=== PATIENT | male | born 1950 | race Caucasian/White ===

== ENCOUNTER 2019-06-10 08:53 | Outpatient (CLI) | payer MEDICARE, SELFPAY ==
--- NOTE | ~2019-06-10 | MR_ITS ---
EXAMINATION: MR lumbar spine wo con EXAM DATE: 06/10/2019 10:15 INDICATION: Low back pain. TECHNIQUE: Multi-sequential, multiplanar MR images of the lumbar spine were obtained without contrast . Sagittal T1, T2, T2 fat saturation images. Axial T2 weighted images. Comparison is made to prior examination from 10/26/2015. FINDINGS: There is chronic L5 spondylolysis with 8 mm anterolisthesis L5 on S1. There is 3 mm retroli sthesis L1 on L2 and L2 on L3, 2 mm retrolisthesis L4 on L5. Moderate to severe L5-S1 disc disease, m oderate at L2-3 and L3-4, mild to moderate at L1-2 and L4-5. The conus medullaris terminates at the T 12-L1 level and has normal signal intensity and morphology. Small hemangioma within T11. Endplate de generative signal change mostly L5-S1. Paraspinal soft tissue is unremarkable. Level by level evaluation: T12-L1: There is a mild diffuse disc bulge. Facet arthropathy: Minimal. Neural foraminal stenosis: No stenosis. Central canal stenosis: No stenosis. L1-L2: There is a mild diffuse disc bulge. Facet arthropathy: Mild. Neural foraminal stenosis: No stenosis. Central canal stenosis: No stenosis. L2-L3: There is a mild to moderate diffuse disc bulge. Facet arthropathy: Mild to moderate. Neural foraminal stenosis: Mild to moderate left, mild right. Central canal stenosis: Mild to moderate. L3-L4: There is a moderate diffuse disc bulge. Facet arthropathy: Moderate . Ligamentum flavum enlargement. Neural foraminal stenosis: Moderate to severe left, mild to moderate right. Central canal stenosis: Moderate, nerve root crowding with minimal CSF space.. L4-L5: There is a mild to moderate diffuse disc bulge. Facet arthropathy: Mild to moderate. Neural foraminal stenosis: Moderate right, mild to moderate left. Central canal stenosis: Mild to moderate. L5-S1: There is a moderate diffuse disc bulge. Facet arthropathy: Mild to moderate. Neural foraminal stenosis: Moderate to severe bilateral, right greater than left. Central canal stenosis: Mild. Compared to prior study minimal progression in the L5-S1 anterolisthesis. Progression in the bilatera l neural foraminal stenosis and disc disease compared to prior study. Progression in the L3-4 Central canal nerve root crowding. IMPRESSION: 1. Chronic L5 spondylolysis with grade 2 anterolisthesis L5 on S1, moderate to severe neural foramin al stenosis. 2. Moderate L3-4 Central canal stenosis. 3. Lesser spondylosis above with some interval progression. Reviewed, dictated and finalized at location B. H [employer] IMPRESSION: 1. Chronic L5 spondylolysis with grade 2 anterolisthesis L5 on S1, moderate to severe neural foraminal stenosis. 2. Moderate L3-4 Central canal stenosis. 3. Lesser spondylosis above with some interval progression.
== END 2019-06-10 08:54 | disposition home or self-care (01) ==
PROVIDERS: PCP Internal Medicine; Visit Provider Internal Medicine
DX: M54.5 Low back pain (principal)
CPT/HCPCS: 72148

== ENCOUNTER 2019-07-18 08:53 | Outpatient (RCR) | payer MEDICARE, SELFPAY ==
--- NOTE | 2019-07-18 10:33 | PTOPEVAL ---
Thank you for referring this patient to [facility]. Please review, sign, date and return this plan of care [facility]. I agree with and certify that the following plan of care is medically necessary. Referring Physician Date Admitting Provider: Attending Provider: Renny Quach MD Referring Provider: *PT Outpatient Evaluation Start: 07/18/19 09:03 Freq: Status: Active Protocol: Document 07/18/19 09:05 [facility] (Rec: 07/18/19 09:54 [facility] [id number]) Therapy Assessment Status Assessment Status Assessment Status Evaluation Outpatient Past Medical History Past Medical History Reason Unable to Obtain see patient intake from Evaluation Information Problem Diagnosis R knee oa Onset Additional Evaluation Detail lefs = 62% Subjective Information patient reports he has been Query Text:As Reported By Patient/ having pain in the R knee Family since fall of last year. he reports he has been to a specialist who reports he has arthritis in the R knee and weakness of the R hip. he reports his walking has gotten worse lately. he reports he is not using a cane yet. he reports he was instructed that it may help, but patient is trying to hold off for now. he reports he has limited walking due to the R knee pain , he reports difficulty with walking on concrete most and also in the [place] on unstable ground. Prior Level of Function Comments Additional Prior Level of Function patient reports he likes to Comments hahn in the [place] and is getting ready for turkey hunting season. Pain Assessment Timing of Pain Assessment Timing of Pain Assessment Assessment Pain Scale Pain Scale Used Numeric (1 - 10) Self Report Pain Assessment Right Knee(s) Reported Pain Level 0 Current Pain Intensity 0 Lowest Pain Intensity 0 Greatest Pain Intensity 8 Pain Aggravating Factors Stair Climbing,Walking,Weight Bearing/Standing Pain Score Pain Score 0: Self Report Lower Extremity Range of Motion Knee Range of Motion Right Knee Flexion Range of Motion - Active 133 Knee Extension Range of Motion - Active -5 Query Text: Michelle
== END 2019-08-10 13:12 | disposition home or self-care (01) ==
LOC: CHSPT 08:53
PROVIDERS: PCP Internal Medicine; Visit Provider Orthopaedic Surgery
DX: M17.11 Unilateral primary osteoarthritis, right knee (principal); M62.81 Muscle weakness (generalized)
CPT/HCPCS: 97014; 97110; 97161; 97530; G0283

== ENCOUNTER 2019-10-09 07:02 | Outpatient (CLI) | payer MEDICARE, SELFPAY ==
--- NOTE | ~2019-10-09 | XR_ITS ---
XR abdomen/kub 1V 10/09/2019 07:33 Indication: Renal stones. History of prostate cancer. Procedure: KUB Comparison: Comparison to multiple prior studies sequentially, with oldest reviewed study dated 10/22. Findings: Bowel gas pattern is nonobstructive. Status post cholecystectomy. Moderate lumbar spondylos is with dextroscoliosis. There is a right total hip arthroplasty. No definite urolithiasis. There is a 1 from penile prosthetic device in the right pelvis. Impression: 1: No acute abdominal abnormality. Reviewed, dictated and finalized at location A. Impression: 1: No acute abdominal abnormality.
[2019-10-09 08:34] LABS: Hemoglobin A1C 6.6 % (<5.7)
[2019-10-09 08:39] LABS: Anion Gap 12.1 mmol/L (7-16); Blood Urea Nitrogen 19 mg/dL (7-18); Calcium 8.7 mg/dL (8.5-10.1); Carbon Dioxide 29 mmol/L (21-32); Chloride 105 mmol/L (98-108); Estimated Glomerular Filt Rate > 60; Glucose 103 mg/dL (70-99); Osmolality Calculated 296 mOsm/kg (285-295); Potassium 4.1 mmol/L (3.5-5.1); Sodium 142 mmol/L (136-145)
== END 2019-10-09 07:03 | disposition home or self-care (01) ==
PROVIDERS: PCP Internal Medicine
DX: N20.0 Calculus of kidney (principal); E11.9 Type 2 diabetes mellitus without complications
CPT/HCPCS: 36415; 74018; 80048; 83036

== ENCOUNTER 2020-01-17 07:11 | Outpatient (CLI) | payer MEDICARE, SELFPAY ==
[2020-01-17 07:45] LABS: Basophils Absolute Auto 0.02 K/mm3 (0.00-0.10); Basophils Percent Auto 0.4 % (0.0-1.0); Eosinophils Absolute Auto 0.07 K/mm3 (0.02-0.50); Eosinophils Percent Auto 1.2 % (1.0-6.0); Hematocrit 42.8 % (37.0-46.0); Hemoglobin 13.7 g/dL (12.4-15.3); Immature Granulocyte Absolute 0.03 K/mm3 (0.00-0.00); Immature Granulocyte Percent A 0.5 % (0.0-0.0); Lymphocytes Absolute Auto 0.88 K/mm3 (1.10-4.50); Lymphocytes Percent Auto 15.5 % (18.0-42.0); Mean Corpuscular Hemoglobin 32.1 pg (27.0-31.0); Mean Corpuscular Volume 100.2 fL (78.0-102.0); Mean Platelet Volume 9.6 fl (8.7-11.0); Monocytes Absolute Auto 0.63 K/mm3 (0.10-0.90); Monocytes Percent Auto 11.1 % (2.0-11.0); Neutrophils Absolute Auto 4.1 K/mm3 (1.7-7.2); Neutrophils Percent Auto 71.3 % (50.0-70.0); Platelet Count Result 259 K/mm3 (150-420); Red Blood Count 4.27 M/mm3 (4.70-6.10); Red Cell Distribution Width 14.5 % (11.6-14.4); White Blood Count 5.7 K/mm3 (4.8-10.8)
[2020-01-17 07:51] LABS: Add Urine Microscopic? YES; Appearance Urine Clear (Clear); Bilirubin Urine Negative (Negative); Blood Urine 1+ (Negative); Color Urine Yellow (Yellow); Glucose Urine UA Negative (Negative); Ketones Urine Negative (Negative); Leukocyte Esterase Ur Negative (Negative); Nitrate Urine Negative (Negative); Protein Urine Negative (Negative); Specific Grav Ur >= 1.030 (1.010-1.020); Urobilinogen Urine 0.2 mg/dL (0.2-1.0)
[2020-01-17 07:56] LABS: Bacteria Urine Trace /hpf; Mucus Urine Few /lpf; RBC Urine 0-2 /hpf (0-2); WBC Urine 0-3 /hpf (0-3)
[2020-01-17 08:05] LABS: MALB Creatinine Ratio 5.7 mg/g (0-30); Microalbumin Urine Random 14.9 mg/L
[2020-01-17 08:27] LABS: Hemoglobin A1C 6.3 % (<5.7)
[2020-01-17 08:44] LABS: Alanine Aminotransferase 24 U/L (16-63); Albumin Level 3.4 g/dL (3.4-5.0); Alkaline Phosphatase 64 U/L (46-116); Anion Gap 10 mmol/L (8-16); Aspartate Amino Transferase 12 U/L (15-37); Bilirubin,Total 0.2 mg/dL (0.00-1.00); Blood Urea Nitrogen 17 mg/dL (7-18); Calcium 8.9 mg/dL (8.5-10.1); Carbon Dioxide 27 mmol/L (21-32); Chloride 106 mmol/L (98-108); Cholesterol 156 mg/dL (0-200); Creatine Kinase 67 U/L (39-308); Estimated Glomerular Filt Rate > 60; Ferritin 42 ng/mL (26-388); Glucose 121 mg/dL (70-99); HDL Direct 41 mg/dL (40-60); Iron 56 ug/dL (65-175); LDL Cholesterol Calculated 85 mg/dL (<130); Osmolality Calculated 298 mOsm/kg (285-295); Percent Iron Saturation 20 % (12-57); Potassium 4.5 mmol/L (3.5-5.1); Sodium 143 mmol/L (136-145); Total Protein 6.5 g/dL (6.4-8.2); Triglycerides 151 mg/dL (0-150)
== END 2020-01-17 07:12 | disposition home or self-care (01) ==
LOC: CHSLAB 07:12
PROVIDERS: PCP Internal Medicine; Visit Provider Internal Medicine
DX: E78.2 Mixed hyperlipidemia (principal); I10 Essential (primary) hypertension; E11.9 Type 2 diabetes mellitus without complications; E61.1 Iron deficiency
CPT/HCPCS: 36415; 80053; 80061; 81001; 82043; 82550; 82728; 83036; 83540; 83550; 85025

== ENCOUNTER 2020-07-15 09:34 | Outpatient (CLI) | payer MEDICARE, SELFPAY ==
--- NOTE | ~2020-07-15 | XR_ITS ---
EXAMINATION: XR abdomen/kub 1V EXAM DATE: 07/15/2020 10:01 INDICATION: hx r side ureteral stone, no current abd pain. TECHNIQUE: Frontal projection of the upper abdomen, frontal projection lower abdomen/pelvis for inter pretation. Comparison is made to prior examination from 10/09/2019. FINDINGS: There is expected amount of colonic stool and gas. No small bowel dilation, nonobstructiv e bowel gas pattern. There are no suspicious calcifications identified. There is no organomegaly suspected. Pelvic surgical clips, probable prostatectomy and lymph node dissection, correlate with history. Impl ant, reservoir. There are cholecystectomy clips. Right hip replacement. There is mild lumbar dextrosc oliosis, overall moderate spondylosis. There are no osteoblastic or osteolytic lesions identified. IMPRESSION: Surgical changes. No suspicious calcifications. Reviewed, dictated and finalized at location A.
== END 2020-07-15 09:35 | disposition home or self-care (01) ==
LOC: CHSIMG 09:36
PROVIDERS: PCP Internal Medicine; Visit Provider Urology
DX: N20.1 Calculus of ureter (principal)
CPT/HCPCS: 74018

== ENCOUNTER 2020-08-12 07:04 | Outpatient (CLI) | payer MEDICARE, SELFPAY ==
[2020-08-12 07:30] LABS: Basophils Absolute Auto 0.02 K/mm3 (0.00-0.10); Basophils Percent Auto 0.4 % (0.0-1.0); Eosinophils Absolute Auto 0.06 K/mm3 (0.02-0.50); Eosinophils Percent Auto 1.1 % (1.0-6.0); Hematocrit 45.4 % (37.0-46.0); Immature Granulocyte Absolute 0.01 K/mm3 (0.00-0.00); Immature Granulocyte Percent A 0.2 % (0.0-0.0); Lymphocytes Absolute Auto 0.87 K/mm3 (1.10-4.50); Lymphocytes Percent Auto 15.6 % (18.0-42.0); Mean Corpuscular Hemoglobin 31.8 pg (27.0-31.0); Mean Corpuscular Volume 96.4 fL (78.0-102.0); Mean Platelet Volume 9.2 fl (8.7-11.0); Neutrophils Absolute Auto 4.1 K/mm3 (1.7-7.2); Neutrophils Percent Auto 73.7 % (50.0-70.0); Platelet Count Result 250 K/mm3 (150-420); Red Blood Count 4.71 M/mm3 (4.70-6.10); Red Cell Distribution Width 13.6 % (11.6-14.4); White Blood Count 5.6 K/mm3 (4.8-10.8)
[2020-08-12 07:33] LABS: Add Urine Microscopic? YES; Appearance Urine Clear (Clear); Bilirubin Urine Negative (Negative); Blood Urine 1+ (Negative); Color Urine Yellow (Yellow); Glucose Urine UA Negative (Negative); Ketones Urine Negative (Negative); Leukocyte Esterase Ur Negative (Negative); Nitrate Urine Negative (Negative); Protein Urine Negative (Negative); Specific Grav Ur >= 1.030 (1.010-1.020); Urobilinogen Urine 0.2 mg/dL (0.2-1.0)
[2020-08-12 07:40] LABS: Bacteria Urine Trace /hpf; RBC Urine 0-2 /hpf (0-2); WBC Urine None seen /hpf (0-3)
[2020-08-12 07:43] LABS: Hemoglobin A1C 6.7 % (<5.7)
[2020-08-12 08:35] LABS: Alanine Aminotransferase 29 U/L (16-63); Albumin Level 3.4 g/dL (3.4-5.0); Alkaline Phosphatase 67 U/L (46-116); Anion Gap 7 mmol/L (8-16); Aspartate Amino Transferase 13 U/L (15-37); Bilirubin,Total 0.3 mg/dL (0.00-1.00); Blood Urea Nitrogen 21 mg/dL (7-18); Calcium 8.8 mg/dL (8.5-10.1); Carbon Dioxide 27 mmol/L (21-32); Chloride 106 mmol/L (98-108); Cholesterol 161 mg/dL (0-200); Creatine Kinase 61 U/L (39-308); Estimated Glomerular Filt Rate > 60; Ferritin 51 ng/mL (26-388); Glucose 135 mg/dL (70-99); HDL Direct 39 mg/dL (40-60); Iron 97 ug/dL (65-175); LDL Cholesterol Calculated 76 mg/dL (<130); Osmolality Calculated 295 mOsm/kg (285-295); Percent Iron Saturation 32 % (12-57); Potassium 4.3 mmol/L (3.5-5.1); Sodium 140 mmol/L (136-145); Total Protein 6.5 g/dL (6.4-8.2); Triglycerides 228 mg/dL (0-150); Uric Acid 3.7 mg/dL (3.5-7.2)
== END 2020-08-12 07:05 | disposition home or self-care (01) ==
LOC: CHSLAB 07:06
PROVIDERS: PCP Internal Medicine; Visit Provider Internal Medicine
DX: E11.9 Type 2 diabetes mellitus without complications (principal); I10 Essential (primary) hypertension; E78.2 Mixed hyperlipidemia; E79.0 Hyperuricemia without signs of inflammatory arthritis and tophaceous disease; E61.1 Iron deficiency
CPT/HCPCS: 36415; 80053; 80061; 81001; 82550; 82728; 83036; 83540; 83550; 84550; 85025

== ENCOUNTER 2020-09-11 10:54 | Outpatient (CLI) | payer MEDICARE, SELFPAY ==
--- NOTE | ~2020-09-11 | MR_ITS ---
EXAMINATION: MR lumbar spine wo con DATE: 09/11/2020 12:09 INDICATION: Low back pain. TECHNIQUE: Magnetic resonance imaging (MRI) of the lumbar spine was performed without intravenous con trast. Sequences included sagittal T2-weighted FSE, sagittal T2-weighted FS FSE, sagittal T1-weighted FSE, and axial T2-weighted FSE. COMPARISON: Lumbar spine MRI 06/10/2019 FINDINGS: There are chronic bilateral L5 pars defects. There is 5 mm anterolisthesis of L5 on S1. The re is 3 mm retrolisthesis of L1 on L2 and L2 on L3. There is mild chronic anterior wedging of T11 and T12 vertebral bodies. There is mildly decreased disc height at L1-L2, severely decreased disc height at L2-L3 and L3-L4, moderately decreased disc height at L4-L5, and severely decreased disc height at L5-S1 with endplate remodeling. The distal spinal cord signal intensity is normal. The conus medulla ris is at L1. The following disc levels are specifically discussed: L1-L2: The disc is bulging. There is mild bilateral facet joint osteoarthritis. There is mild bilater al neural foraminal stenosis. There is mild central canal stenosis. L2-L3: The disc is bulging and has an annular fissure. There is severe bilateral facet joint osteoart hritis. There is mild bilateral neural foraminal stenosis. There is mild central canal stenosis. L3-L4: The disc is bulging with superimposed central extrusion. There is severe bilateral facet joint osteoarthritis. There is mild right and moderate left neural foraminal stenosis. There is severe allison tral canal stenosis. L4-L5: The disc is bulging and has an annular fissure. There is mild right and moderate left facet ubaldo int osteoarthritis. There is moderate right and mild left neural foraminal stenosis. There is mild ce ntral canal stenosis. L5-S1: The disc is bulging and has an annular fissure. There is severe bilateral facet joint osteoart hritis. There is moderate right and mild left neural foraminal stenosis. There is mild central canal stenosis. IMPRESSION: 1. Severe lumbar spondylosis, stable from 06/10/2019. 2. Chronic bilateral L5 pars defects with grade 1 anterolisthesis of L5 on S1. Reviewed, dictated and finalized at location B.
== END 2020-09-11 10:55 | disposition home or self-care (01) ==
LOC: CHSIMG 10:55
PROVIDERS: PCP Internal Medicine; Visit Provider Internal Medicine
DX: M54.5 Low back pain (principal)
CPT/HCPCS: 72148

== ENCOUNTER 2021-02-07 07:33 | Outpatient (CLI) | payer MEDICARE, SELFPAY ==
[2021-02-07 07:49] LABS: Basophils Absolute Auto 0.03 K/mm3 (0.00-0.10); Basophils Percent Auto 0.5 % (0.0-1.0); Eosinophils Absolute Auto 0.07 K/mm3 (0.02-0.50); Eosinophils Percent Auto 1.2 % (1.0-6.0); Hematocrit 48.4 % (37.0-46.0); Hemoglobin 15.8 g/dL (12.4-15.3); Immature Granulocyte Absolute 0.04 K/mm3 (0.00-0.00); Immature Granulocyte Percent A 0.7 % (0.0-0.0); Lymphocytes Absolute Auto 0.92 K/mm3 (1.10-4.50); Lymphocytes Percent Auto 15.2 % (18.0-42.0); Mean Corpuscular HGB Conc 32.6 g/dL (32.0-36.0); Mean Corpuscular Hemoglobin 32.4 pg (27.0-31.0); Mean Corpuscular Volume 99.2 fL (78.0-102.0); Mean Platelet Volume 9.1 fl (8.7-11.0); Monocytes Absolute Auto 0.65 K/mm3 (0.10-0.90); Monocytes Percent Auto 10.7 % (2.0-11.0); Neutrophils Absolute Auto 4.4 K/mm3 (1.7-7.2); Neutrophils Percent Auto 71.7 % (50.0-70.0); Platelet Count Result 251 K/mm3 (150-420); Red Blood Count 4.88 M/mm3 (4.70-6.10); Red Cell Distribution Width 13.6 % (11.6-14.4); White Blood Count 6.1 K/mm3 (4.8-10.8)
[2021-02-07 07:51] LABS: Add Urine Microscopic? YES; Appearance Urine Clear (Clear); Bilirubin Urine Negative (Negative); Blood Urine 1+ (Negative); Color Urine Yellow (Yellow); Glucose Urine UA Negative (Negative); Ketones Urine Negative (Negative); Leukocyte Esterase Ur Negative (Negative); Nitrate Urine Negative (Negative); Protein Urine Negative (Negative); Specific Grav Ur >= 1.030 (1.010-1.020); Urobilinogen Urine 0.2 mg/dL (0.2-1.0); pH Urine 5.5 (5.0-8.0)
[2021-02-07 08:01] LABS: RBC Urine 0-2 /hpf (0-2); WBC Urine None seen /hpf (0-3)
[2021-02-07 08:02] LABS: Bacteria Urine Trace /hpf; Mucus Urine Few /lpf
[2021-02-07 08:12] LABS: Creatinine Urine 246.61 mg/dL (40-278); MALB Creatinine Ratio 5.2 mg/g (0-30); Microalbumin Urine Random < 13.0 mg/L
[2021-02-07 08:14] LABS: Hemoglobin A1C 6.9 % (<5.7)
[2021-02-07 09:22] LABS: Alanine Aminotransferase 32 U/L (16-63); Albumin Level 3.6 g/dL (3.4-5.0); Alkaline Phosphatase 78 U/L (46-116); Anion Gap 9 mmol/L (8-16); Aspartate Amino Transferase 10 U/L (15-37); Bilirubin,Total 0.4 mg/dL (0.00-1.00); Blood Urea Nitrogen 17 mg/dL (7-18); Calcium 8.9 mg/dL (8.5-10.1); Carbon Dioxide 29 mmol/L (21-32); Chloride 103 mmol/L (98-108); Cholesterol 162 mg/dL (0-200); Creatine Kinase 56 U/L (39-308); Estimated Glomerular Filt Rate > 60; Ferritin 135 ng/mL (26-388); Glucose 130 mg/dL (70-99); HDL Direct 45 mg/dL (40-60); Iron 86 ug/dL (65-175); LDL Cholesterol Calculated 78 mg/dL (<130); Osmolality Calculated 295 mOsm/kg (285-295); Percent Iron Saturation 30 % (12-57); Potassium 4.6 mmol/L (3.5-5.1); Sodium 141 mmol/L (136-145); Total Protein 6.6 g/dL (6.4-8.2); Triglycerides 196 mg/dL (0-150)
== END 2021-02-07 07:34 | disposition home or self-care (01) ==
LOC: CHSLAB 07:35
PROVIDERS: PCP Internal Medicine; Visit Provider Internal Medicine
DX: E11.9 Type 2 diabetes mellitus without complications (principal); I10 Essential (primary) hypertension; E78.2 Mixed hyperlipidemia; E61.1 Iron deficiency
CPT/HCPCS: 36415; 80053; 80061; 81001; 82043; 82550; 82728; 83036; 83540; 83550; 85025

== ENCOUNTER 2021-02-21 12:17 | Outpatient (CLI) | payer MEDICARE, SELFPAY ==
--- NOTE | ~2021-02-21 | US_ITS ---
EXAMINATION: US soft tissue head and neck DATE: 02/21/2021 12:39 INDICATION: Right parotid tumor. TECHNIQUE: Multiple grayscale and Doppler ultrasound images of the right head and neck were obtained. COMPARISON: None FINDINGS: The right parotid gland is normal. No abnormal mass is visualized. IMPRESSION: 1. Normal right parotid gland. No abnormal mass visualized. Reviewed, dictated and finalized at location A.
== END 2021-02-21 12:18 | disposition home or self-care (01) ==
LOC: CHSIMG 12:19
PROVIDERS: PCP Internal Medicine; Visit Provider Internal Medicine
DX: D49.0 Neoplasm of unspecified behavior of digestive system (principal)
CPT/HCPCS: 76536

== ENCOUNTER 2021-04-29 16:52 | Outpatient (CLI) | payer MEDICARE, SELFPAY ==
--- NOTE | ~2021-04-29 | US_ITS ---
EXAMINATION: US venous doppler [facility] DATE: 04/29/2021 17:25 INDICATION: Left lower limb swelling TECHNIQUE: Barnhart scale images without and with compression and Doppler images of the left lower extrem ity veins were obtained. COMPARISON: None FINDINGS: The left common femoral vein, profunda femoral vein, femoral vein, popliteal vein, peroneal trunk, posterior tibial veins, and greater saphenous vein are patent. IMPRESSION: 1. Patent left lower extremity veins. No evidence of deep venous thrombosis. Reviewed, dictated and finalized at location F. R [employer] S[employer]ER
== END 2021-04-29 16:53 | disposition home or self-care (01) ==
LOC: ANHIMG 16:55
PROVIDERS: PCP Internal Medicine; Visit Provider Neurological Surgery
DX: R60.0 Localized edema (principal)
CPT/HCPCS: 93971

== ENCOUNTER 2021-05-30 13:06 | Outpatient (CLI) | payer MEDICARE, SELFPAY ==
[2021-05-30 13:41] LABS: Anion Gap 9 mmol/L (8-16); Blood Urea Nitrogen 15 mg/dL (7-18); Calcium 9.1 mg/dL (8.5-10.1); Carbon Dioxide 32 mmol/L (21-32); Chloride 99 mmol/L (98-108); Estimated Glomerular Filt Rate > 60; Glucose 88 mg/dL (70-99); Osmolality Calculated 289 mOsm/kg (285-295); Sodium 140 mmol/L (136-145)
[2021-05-30 13:55] LABS: Hemoglobin A1C 6.4 % (<5.7)
== END 2021-05-30 13:07 | disposition home or self-care (01) ==
LOC: CHSLAB 13:08
PROVIDERS: PCP Internal Medicine; Visit Provider Internal Medicine
DX: E11.9 Type 2 diabetes mellitus without complications (principal)
CPT/HCPCS: 36415; 80048; 83036

== ENCOUNTER 2021-06-17 09:43 | Outpatient (CLI) | payer MEDICARE, SELFPAY ==
--- NOTE | ~2021-06-17 | CT_ITS ---
EXAMINATION: CT facial bones wo con DATE: 06/17/2021 10:06 INDICATION: Bilateral soft tissue masses TECHNIQUE: Computed tomography (CT) of the facial bones and maxillofacial region was performed withou t intravenous contrast. Automated exposure control and iterative reconstruction technique were employ ed. Exam dose: 550.92 mGy-cm total exam DLP. COMPARISON: None. FINDINGS: There is considerable streak artifact from fillings in the teeth, limiting the examination. There is a mucous retention cyst or polyp in the anteromedial left maxillary sinus, measuring up to 8 .7 x 12 mm, with a similar but smaller mucous retention cyst or less likely polyp in similar location on the right, measuring 4.2 x 8.8 mm. The paranasal sinuses and mastoid air cells are normally developed and aerated. The mastoid air cells likewise appear normally developed and aerated. The nasal bones and anterior maxillary spine, frontozygomatic sutures, orbital rims and baez and zyg omatic arches and remainder of the facial bones are intact. No orbital mass lesion is detected. The parotid and submandibular glands appear unremarkable. No facial soft tissue mass is evident. IMPRESSION: Mucous retention cysts of the maxillary sinuses Reviewed, dictated and finalized at Location A. Reviewed, dictated and finalized at location B. BINDER
== END 2021-06-17 09:44 | disposition home or self-care (01) ==
LOC: CHSIMG 09:44
PROVIDERS: PCP Internal Medicine; Visit Provider Internal Medicine
DX: R22.0 Localized swelling, mass and lump, head (principal)
CPT/HCPCS: 70486

== ENCOUNTER 2021-07-08 09:12 | Outpatient (CLI) | payer MEDICARE, SELFPAY ==
--- NOTE | ~2021-07-08 | XR_ITS ---
EXAMINATION: XR lumbar spine 2-3V DATE: 07/08/2021 09:31 INDICATION: Lumbar spondylosis TECHNIQUE: Anteroposterior and lateral views of the lumbar spine, and cone-down lateral view of the l umbosacral junction were obtained. COMPARISON: MRI, 09/11/2020 FINDINGS: There are changes of interval anterior and posterior fusion at L5-S1. There are 5 mm of ant erolisthesis of L5 on S1. There are 2 mm of anterolisthesis of L3 on L4. There is severe loss of inte rvertebral disc space height throughout the lumbar spine. No fracture is identified. Changes of right total hip arthroplasty are noted. There are surgical clips in the pelvis. IMPRESSION: 1. Changes of interval anterior and posterior fusion at L5-S1 with persistent severe lumbar spondylos is. Reviewed, dictated and finalized at location B. [employer] IMPRESSION: 1. Changes of interval anterior and posterior fusion at L5-S1 with persistent s evere lumbar spondylosis.
== END 2021-07-08 09:13 | disposition home or self-care (01) ==
LOC: CHSIMG 09:14
PROVIDERS: PCP Internal Medicine; Visit Provider Neurological Surgery
DX: M47.816 Spondylosis without myelopathy or radiculopathy, lumbar region (principal)
CPT/HCPCS: 72100

== ENCOUNTER 2021-07-15 13:55 | Outpatient (RCR) | payer MEDICARE, SELFPAY ==
--- NOTE | 2021-07-15 14:59 | PTOPEVAL ---
Thank you for referring Alex Hong to [facility].? The patient is scheduled to be seen for therapy? __2__x/week for 6 visits. Please review, sign, date and return this plan of care [facility]. I agree with and certify that the following plan of care is medically necessary. Referring Physician Date Admitting Provider: Attending Provider: Eleazar Pugh, Referring Provider: *PT Outpatient Evaluation Start: 07/15/21 13:57 Freq: Status: Active Protocol: Document 07/15/21 14:04 [facility] (Rec: 07/15/21 14:57 [facility] [id number]) Therapy Assessment Status Assessment Status Assessment Status Evaluation Evaluation Information Problem Diagnosis s/p L5-S1 fusion Onset 04/16/21 Subjective Information Pt. reports he underwent back Query Text:As Reported By Patient/ surgery on 04/16/21. He Family reports he was doing well until recent weeks when he developed pain in the left buttock and cramping in the left calf. He reports that pain is worse with sitting and no pain with walking. He reports that he enjoys golf and would like to be able to return to golf. He reports that he would like to be to improve his mobility and strength and return to golf. Prior Level of Function Comments Additional Prior Level of Function Pt. reports that he was Comments golfing as of last summer. He reports no formal exercise currently, and was not walking any significant distance. Pain Assessment Timing of Pain Assessment Timing of Pain Assessment Pre-Treatment Pain Scale Pain Scale Used Numeric (1 - 10) Self Report Pain Assessment Left Buttock(s) Reported Pain Level 8 Pain Description Sharp Greatest Pain Intensity 8 Pain Score Pain Score 8: Self Report Interventions Used Interventions Used By Clinicians Exercise,Lying Supine,Standing Cervical and Lumbar ROM Lumbar ROM Lumbar Flexion Active Knee Query Text:Hands to: Lumbar Extension (0-40) 5 Query Text:Active in Degrees Lumbar Lateral Flexion Right (0-40) 25 Query Text:Active in Degrees Lumbar Lateral Flexion Left (0-40) 25 Query Text:Active in Degrees Cervical and Lumbar Muscle Testing Lumbar Strength Upper Abdominal Strength 4-Good- Lower Abdominal Strength
== END 2021-08-07 17:00 | disposition home or self-care (01) ==
LOC: CHSPT 13:55
PROVIDERS: PCP Internal Medicine; Visit Provider Neurological Surgery
DX: Z98.890 Other specified postprocedural states (principal)
CPT/HCPCS: 97014; 97110; 97140; 97161; 97530; G0283

== ENCOUNTER 2021-08-07 10:05 | Outpatient (CLI) | payer MEDICARE, SELFPAY ==
--- NOTE | ~2021-08-07 | XR_ITS ---
EXAMINATION: XR abdomen/kub 1V EXAM DATE: 08/07/2021 10:23 INDICATION: Kidney stone follow-up. No current symptoms. TECHNIQUE: Frontal projection(s) of the abdomen for interpretation. Comparison is made to prior exami nation from 07/15/2020. FINDINGS: No suspicious soft tissue calcifications identified. Expected amount of colonic stool and gas. Multiple surgical changes. Mild to moderate lumbar dextroscoliosis. There is no organomegaly. IMPRESSION: No suspicious calcifications. Reviewed, dictated and finalized at location A.
== END 2021-08-07 10:06 | disposition home or self-care (01) ==
LOC: CHSIMG 10:07
PROVIDERS: PCP Internal Medicine; Visit Provider Urology
DX: N20.0 Calculus of kidney (principal)
CPT/HCPCS: 74018

== ENCOUNTER 2021-11-02 10:07 | Outpatient (CLI) | payer MEDICARE, SELFPAY ==
--- NOTE | ~2021-11-02 | MR_ITS ---
EXAMINATION: MR lumbar spine wo con DATE: 11/02/2021 11:54 INDICATION: Low back pain TECHNIQUE: Magnetic resonance imaging (MRI) of the lumbar spine was performed without intravenous con trast. Sequences included sagittal T2-weighted FSE, sagittal T2-weighted FS FSE, sagittal T1-weighted FSE, and axial T2-weighted FSE. COMPARISON: CT dated 11/02/2021 FINDINGS: 12 degree lumbar scoliosis. Partial L2 laminectomies and L3-L5 laminectomies. 6 mm anterolisthesis L5 on S1 with postoperative change of discectomy with interbody bone graft cages, bilateral facetectomi es and posterior spinal fusion with bilateral vertical glo and pedicle screw fixation at L5-S1. Addit ional 3 mm retrolisthesis L1 on L2 and L2 on L3. Vertebral body heights are normal. Severe left-sided disc height loss with associated fibrovascular degenerative endplate changes at L3-L4. Moderate disc height loss at L2-L3 and L4-L5. Mild disc height loss at T11-T12 and L1-L2. The conus medullaris ter minates at L1. There is normal signal in the caudal spinal cord. 12 mm T1 hyperintense lesion at the upper pole of the right kidney corresponding to macroscopic fat on CT consistent with an angiomyolipo ma. Paravertebral soft tissues are unremarkable. The following disc levels are specifically discussed : T12-L1: The disc does not extend beyond the endplate margin. There is mild left and moderate right fa cet joint osteoarthritis. There is no neural foraminal stenosis. There is no central canal stenosis. L1-L2: Disc is bulging. There is mild right and moderate left facet joint osteoarthritis. There is mi ld bilateral neural foraminal stenosis. There is mild central canal stenosis. L2-L3: Disc is bulging. There is hypertrophy of the ligamentum flavum. There is moderate bilateral f acet joint osteoarthritis. There is moderate right and moderate left neural foraminal stenosis. There is moderate central canal stenosis. L3-L4: Disc is bulging with superimposed annular fissure and left paracentral disc extrusion extendin g 7 mm cephalad to the level of the endplate of L3. There is mild to moderate right and moderate left facet joint osteoarthritis. There is moderate to severe left and mild to moderate right neural neena inal stenosis. There is mild central canal stenosis with posterior decompression. L4-L5: Disc is bulging with superimposed annular fissure and small central disc extrusion with disc m aterial extending 5 mm caudal to the level of the superior endplate of L5. There is moderate bilatera l facet joint osteoarthritis although assessment is somewhat limited by metallic magnetic field artif act from the posterior spinal fusion instrumentation. There is moderate right and mild to moderate le ft neural foraminal stenosis. There is minimal central canal stenosis with posterior decompression. L5-S1: Anterior spinal fusion although there does appear to be a residual left to right paracentral d isc extrusion with disc material extending 6 mm cephalad to the level the caudal endplate of L5. Post operative change of prior lateral facetectomies with posterior spinal fusion. There is mild bilateral neural foraminal stenosis. On the right there is more prominent moderate narrowing of the extra fora tracy space between lateral osteophytes along the disc space, the cephalad margin of the right sacral ala and the right transverse processes of L5. There is no central canal stenosis with posterior deco mpression. IMPRESSION: 1. Severe lumbar spondylosis with postoperative change including partial L2 laminectomy, L3-L5 jona ctomies, bilateral L5-S1 facetectomy and combined instrumented anterior and posterior spinal fusion a t L5-S1. Reviewed, dictated and finalized at location A. IMPRESSION: 1. Severe lumbar spondylosi
--- NOTE | ~2021-11-02 | CT_ITS ---
EXAMINATION: CT lumbar spine wo/w con DATE: 11/02/2021 12:36 INDICATION: Low back pain TECHNIQUE: Computed tomography (CT) of the lumbar spine was performed without intravenous contrast. A utomated exposure control and iterative reconstruction technique were employed. The dose-length produ ct was 2401.67 mGy-cm. COMPARISON: Lumbar spine radiographs dated 07/08/2021, lumbar spine MRI dated 09/11/[address] abdomen and pelvis dated 04/02/2016 FINDINGS: 10 degrees lumbar dextroscoliosis measured between L1 and L5. Interval L3-L5 laminectomies and partia l L2 laminectomy. Discectomy and anterior spinal fusion with interbody bone graft cages at L5-S1. The re appears to be some incorporation of bone graft material with early fusion developing across the di sc space. There is also posterior spinal fusion at this level with bilateral vertical glo and pedicle screw fixation. Unchanged 5 mm anterolisthesis L5 on S1. Also unchanged is 3 mm retrolisthesis L1 on L2 and L2 on L3. Vertebral body heights are normal. No fractures. Severe left-sided disc height loss at L3-L4. Moderate disc height loss at L2-L3 and L4-L5. Mild disc height loss at T11-T12 and L1-L2. 1.3 cm macroscopic fat attenuation angiomyolipoma at the upper pole of the right kidney. No significa nt change in bilateral adrenal adenomas, the largest on the left which demonstrate characteristic low attenuation on earlier noncontrast CT dated 04/02/2016. There are some postoperative scarring along t he midline of the posterior paraspinal soft tissues. The following disc levels are specifically discu ssed: T11-T12: Disc is mildly bulging. There is moderate bilateral facet joint osteoarthritis. There is mil d bilateral neural foraminal stenosis. There is mild central canal stenosis. T12-L1: The disc does not extend beyond the endplate margin. There is mild left and moderate right fa cet joint osteoarthritis. There is no neural foraminal stenosis. There is no central canal stenosis. L1-L2: Disc is mildly bulging. There is mild right and moderate left facet joint osteoarthritis. Ther e is bilateral, right greater than left. neural foraminal stenosis. There is mild central canal steno sis. L2-L3: Disc is bulging. There is moderate bilateral facet joint osteoarthritis. There is mild to mode rate bilateral neural foraminal stenosis. There is moderate central canal stenosis. L3-L4: Disc is bulging. There is mild right and moderate to severe left facet joint osteoarthritis. T here is mild to moderate right and moderate left neural foraminal stenosis. There is likely moderate central canal stenosis with posterior decompression. L4-L5: Disc is bulging. There is mild right and moderate left facet joint osteoarthritis. There is mo derate bilateral neural foraminal stenosis. There is posterior decompression of the central canal. As sessment for stenosis is however significantly limited by streak artifact from the vertical rods and pedicle screws. L5-S1: Disc space is fused. There is posterior spinal fusion with bilateral facetectomies. There is m ild bilateral neural foraminal stenosis. There is posterior decompression of the central canal, again with assessment for stenosis limited by the metallic streak artifact. IMPRESSION: 1. Interval L3-L5 laminectomies, partial L3 laminectomy, bilateral L5-S1 facetectomies and combined i nstrumented anterior and posterior spinal fusion at L5-S1. 2. Minimal progression in severe lumbar spondylosis. Reviewed, dictated and finalized at location A. IMPRESSION: 1. Interval L3-L5 laminectomies, partial L3 laminectomy, bilateral L5-S1 facete ctomies and combined instrumented anterior and posterior spinal fusion at L5-S1 . 2. Minimal progression in severe lumbar spondylosis.
[2021-11-02 12:13] LABS: Estimated Glomerular Filt Rate > 60
== END 2021-11-02 10:08 | disposition home or self-care (01) ==
PROVIDERS: PCP Internal Medicine; Visit Provider Neurological Surgery
DX: M48.061 Spinal stenosis, lumbar region without neurogenic claudication (principal); M47.816 Spondylosis without myelopathy or radiculopathy, lumbar region; Z98.890 Other specified postprocedural states; Z98.1 Arthrodesis status
CPT/HCPCS: 72133; 72148; Q9967

== ENCOUNTER 2022-01-30 08:08 | Outpatient (CLI) | payer MEDICARE, SELFPAY ==
[2022-01-30 08:19] LABS: Basophils Absolute Auto 0.01 K/mm3 (0.00-0.10); Basophils Percent Auto 0.2 % (0.0-1.0); Eosinophils Absolute Auto 0.05 K/mm3 (0.02-0.50); Eosinophils Percent Auto 0.9 % (1.0-6.0); Hematocrit 46.1 % (37.0-46.0); Hemoglobin 14.6 g/dL (12.4-15.3); Immature Granulocyte Absolute 0.03 K/mm3 (0.00-0.00); Immature Granulocyte Percent A 0.6 % (0.0-0.0); Lymphocytes Absolute Auto 0.86 K/mm3 (1.10-4.50); Lymphocytes Percent Auto 15.8 % (18.0-42.0); Mean Corpuscular HGB Conc 31.7 g/dL (32.0-36.0); Mean Corpuscular Hemoglobin 31.8 pg (27.0-31.0); Mean Corpuscular Volume 100.4 fL (78.0-102.0); Mean Platelet Volume 9.2 fl (8.7-11.0); Monocytes Absolute Auto 0.56 K/mm3 (0.10-0.90); Monocytes Percent Auto 10.3 % (2.0-11.0); Neutrophils Absolute Auto 3.9 K/mm3 (1.7-7.2); Neutrophils Percent Auto 72.2 % (50.0-70.0); Platelet Count Result 221 K/mm3 (150-420); Red Blood Count 4.59 M/mm3 (4.70-6.10); Red Cell Distribution Width 14.2 % (11.6-14.4); White Blood Count 5.4 K/mm3 (4.8-10.8)
[2022-01-30 08:28] LABS: Appearance Urine Clear (Clear); Bilirubin Urine Negative (Negative); Color Urine Yellow (Yellow); Creatinine Urine 228.11 mg/dL (40-278); Glucose Urine UA Negative (Negative); Ketones Urine Negative (Negative); Leukocyte Esterase Ur Negative (Negative); MALB Creatinine Ratio 6.3 mg/g (0-30); Microalbumin Urine Random 14.4 mg/L; Nitrate Urine Negative (Negative); Protein Urine Negative (Negative); Specific Grav Ur >= 1.030 (1.010-1.020); Urobilinogen Urine 0.2 mg/dL (0.2-1.0); pH Urine 5.5 (5.0-8.0)
[2022-01-30 08:34] LABS: Add Urine Microscopic? YES; Bacteria Urine Trace /hpf; Blood Urine Trace-Intact (Negative); Mucus Urine Few /lpf; RBC Urine 0-2 /hpf (0-2); Squamous Epithelial Cell Urine Few /hpf (Few); WBC Urine None seen /hpf (0-3)
[2022-01-30 09:11] LABS: Alanine Aminotransferase 29 U/L (16-63); Albumin Level 3.3 g/dL (3.4-5.0); Alkaline Phosphatase 74 U/L (46-116); Anion Gap 3 mmol/L (8-16); Aspartate Amino Transferase < 10 U/L (15-37); Bilirubin,Total 0.3 mg/dL (0.00-1.00); Blood Urea Nitrogen 17 mg/dL (7-18); Calcium 8.9 mg/dL (8.5-10.1); Carbon Dioxide 32 mmol/L (21-32); Chloride 107 mmol/L (98-108); Cholesterol 148 mg/dL (0-200); Creatine Kinase 42 U/L (39-308); Estimated Glomerular Filt Rate > 60; Ferritin 127 ng/mL (26-388); Glucose 143 mg/dL (70-99); HDL Direct 44 mg/dL (40-60); Iron 62 ug/dL (65-175); LDL Cholesterol Calculated 74 mg/dL (<130); Osmolality Calculated 297 mOsm/kg (285-295); Potassium 4.4 mmol/L (3.5-5.1); Sodium 142 mmol/L (136-145); Total Protein 6.8 g/dL (6.4-8.2); Triglycerides 149 mg/dL (0-150)
== END 2022-01-30 08:09 | disposition home or self-care (01) ==
LOC: CHSLAB 08:09
PROVIDERS: PCP Internal Medicine; Visit Provider Internal Medicine
DX: E78.2 Mixed hyperlipidemia (principal); E11.9 Type 2 diabetes mellitus without complications; I10 Essential (primary) hypertension; E61.1 Iron deficiency
CPT/HCPCS: 36415; 80053; 80061; 81001; 82043; 82550; 82728; 83036; 83540; 85025

== ENCOUNTER 2022-08-11 07:31 | Outpatient (CLI) | payer MEDICARE, SELFPAY ==
--- NOTE | ~2022-08-11 | XR_ITS ---
Supine and upright views of the abdomen Clinical history: Ureteral stone COMPARISON: 08/07/2021 Findings: Bowel gas pattern is nonspecific. No evidence for obstruction or free air. No abnormal mass lesion or calcification is seen. Lumbosacral spinal fixation hardware and right hip arthroplasty are unchanged. [place] unchanged. Pelvic surgical clips unchanged.. Impression: No renal/ureteral stone identified. Reviewed, dictated and finalized at location M. Impression: No renal/ureteral stone identified.
[2022-08-11 07:49] LABS: Appearance Urine Clear (Clear); Basophils Absolute Auto 0.02 K/mm3 (0.00-0.10); Basophils Percent Auto 0.4 % (0.0-1.0); Bilirubin Urine Negative (Negative); Blood Urine 1+ (Negative); Color Urine Yellow (Yellow); Eosinophils Absolute Auto 0.06 K/mm3 (0.02-0.50); Eosinophils Percent Auto 1.2 % (1.0-6.0); Glucose Urine UA Negative (Negative); Hematocrit 45.7 % (37.0-46.0); Hemoglobin 14.8 g/dL (12.4-15.3); Immature Granulocyte Absolute 0.02 K/mm3 (0.00-0.00); Immature Granulocyte Percent A 0.4 % (0.0-0.0); Ketones Urine Negative (Negative); Leukocyte Esterase Ur Negative (Negative); Lymphocytes Absolute Auto 0.91 K/mm3 (1.10-4.50); Lymphocytes Percent Auto 17.5 % (18.0-42.0); Mean Corpuscular HGB Conc 32.4 g/dL (32.0-36.0); Mean Corpuscular Hemoglobin 31.4 pg (27.0-31.0); Mean Corpuscular Volume 96.8 fL (78.0-102.0); Monocytes Absolute Auto 0.45 K/mm3 (0.10-0.90); Monocytes Percent Auto 8.7 % (2.0-11.0); Neutrophils Absolute Auto 3.7 K/mm3 (1.7-7.2); Neutrophils Percent Auto 71.8 % (50.0-70.0); Nitrate Urine Negative (Negative); Platelet Count Result 236 K/mm3 (150-420); Protein Urine Trace (Negative); Red Blood Count 4.72 M/mm3 (4.70-6.10); Red Cell Distribution Width 12.9 % (11.6-14.4); Specific Grav Ur >= 1.030 (1.010-1.020); Urobilinogen Urine 0.2 mg/dL (0.2-1.0); White Blood Count 5.2 K/mm3 (4.8-10.8)
[2022-08-11 08:00] LABS: Microalbumin Urine Random 30.5 mg/L
[2022-08-11 08:01] LABS: Hemoglobin A1C 6.7 % (<5.7)
[2022-08-11 08:11] LABS: Add Urine Microscopic? YES; RBC Urine 0-2 /hpf (0-2); Squamous Epithelial Cell Urine Occasional /hpf (Few); WBC Urine None seen /hpf (0-3)
[2022-08-11 08:12] LABS: Bacteria Urine Trace /hpf; Mucus Urine Few /lpf
[2022-08-11 08:17] LABS: MALB Creatinine Ratio 8.4 mg/g (0-30)
[2022-08-11 09:17] LABS: Alanine Aminotransferase 38 U/L (16-63); Albumin Level 3.3 g/dL (3.4-5.0); Alkaline Phosphatase 76 U/L (46-116); Anion Gap 8 mmol/L (8-16); Aspartate Amino Transferase 17 U/L (15-37); Bilirubin,Total 0.4 mg/dL (0.00-1.00); Blood Urea Nitrogen 17 mg/dL (7-18); Calcium 8.5 mg/dL (8.5-10.1); Carbon Dioxide 29 mmol/L (21-32); Chloride 104 mmol/L (98-108); Cholesterol 129 mg/dL (0-200); Creatine Kinase 107 U/L (39-308); Estimated Glomerular Filt Rate > 60; Ferritin 148 ng/mL (26-388); Glucose 123 mg/dL (70-99); HDL Direct 35 mg/dL (40-60); Iron 70 ug/dL (65-175); LDL Cholesterol Calculated 49 mg/dL (<130); Osmolality Calculated 294 mOsm/kg (285-295); Potassium 4.1 mmol/L (3.5-5.1); Prostate Specific Antigen < 0.1 ng/mL (< OR = 4.0); Sodium 141 mmol/L (136-145); Total Protein 6.5 g/dL (6.4-8.2); Triglycerides 225 mg/dL (0-150)
== END 2022-08-11 07:32 | disposition home or self-care (01) ==
LOC: CHSLAB 07:34
PROVIDERS: PCP Internal Medicine; Visit Provider Urology
DX: I10 Essential (primary) hypertension (principal); E78.2 Mixed hyperlipidemia; E11.9 Type 2 diabetes mellitus without complications; E61.1 Iron deficiency; C61 Malignant neoplasm of prostate
CPT/HCPCS: 36415; 74018; 80053; 80061; 81001; 82043; 82550; 82728; 83036; 83540; 84153; 85025

== ENCOUNTER 2022-11-29 22:47 | Emergency (ER) | payer MEDICARE, SELFPAY ==
--- NOTE | ~2022-11-29 | CT_ITS ---
Non-contrast CT scan of the Abdomen and Pelvis Clinical indication: Right flank pain Technique: 2.5 mm axial scans were obtained through the abdomen and pelvis without intravenous or or al contrast. Dose reduction technique was used on this scan by utilizing automated exposure control a nd iterative reconstruction technique. The dose-length product (DLP) was 1119.00 mGy-cm. COMPARISON: 04/02/2016 Findings: Images through the lung bases reveal no abnormalities. There is a 2 mm stone at the mid to distal right ureter (axial image 141), with mild right hydrourete ronephrosis. There are additional punctate bilateral nonobstructing renal stones. No left ureteral st one or left hydronephrosis. Small right renal angiomyolipoma noted. The liver, spleen, pancreas appear normal. Cholecystectomy clips are present. Bilateral low-density a drenal nodules are similar to prior exam, consistent with adenomas. There is no aortic aneurysm. There is no evidence of bowel obstruction. Normal appendix. Images through the pelvis are degraded by streak artifact from right hip arthroplasty. There is no ev idence of ascites or lymphadenopathy. Urinary bladder unremarkable. Patient appears to be post prosta tectomy. Impression: 2 mm mid to distal right ureteral stone, with mild right hydroureteronephrosis. Additional punctate bilateral nonobstructing renal stones. Stable bilateral adrenal adenomas. Reviewed, dictated and finalized at [facility]. Impression: 2 mm mid to distal right ureteral stone, with mild right hydroureteronephrosis. Additional punctate bilateral nonobstructing renal stones. Stable bilateral adrenal adenomas.
[2022-11-29 22:47] VITALS: BP 157/88; PULSE 90; RESP 20; TEMP 37; O2SAT 95
[2022-11-29 23:10] LABS: Appearance Urine Clear (Clear); Bilirubin Urine Negative (Negative); Blood Urine 3+ (Negative); Color Urine Light Yellow (Yellow); Glucose Urine UA Negative (Negative); Ketones Urine Negative (Negative); Leukocyte Esterase Ur Negative LEU/UL (Negative); Nitrate Urine Negative (Negative); Protein Urine Negative (Negative); Specific Grav Ur >= 1.030 (1.010-1.020); Urobilinogen Urine 0.2 mg/dL (0.2-1.0); pH Urine 5.5 (5.0-8.0)
--- NOTE | 2022-11-29 23:12 | ED.GENADULT ---
HPI - General Adult General Chief complaint: Abdominal Pain Stated complaint: R lower flank pain History of Present Illness HPI narrative: 72-year-old male presenting with right-sided flank /right-sided abdominal pain. Patient states his symptoms started approximately 35 minutes ago. He describes his symptoms as stabbing pain in his right flank that radiates into his right-sided abdomen. He does state he has a history of kidney stones. He denies any recent illnesses or trauma to the area. Onset (ago): minute(s) Location: abdomen Related Data Home Medications Medication Instructions Recorded Confirmed ferrous sulfate 325 mg (65 mg 325 mg PO DAILY 10/27/21 11/30/22 iron) tablet hydrochlorothiazide 12.5 mg capsule 12.5 mg PO DAILY 10/27/21 11/30/22 losartan 100 mg tablet 100 mg PO DAILY 10/27/21 11/30/22 nebivolol 5 mg tablet 5 mg PO DAILY 10/27/21 11/30/22 pantoprazole 40 mg tablet,delayed 40 mg PO QAM 10/27/21 11/30/22 release potassium citrate 99 mg capsule 99 mg PO DAILY 10/27/21 11/30/22 Allergies Allergy/AdvReac Type Severity Reaction Status Date / Time No Known Allergies Allergy Unknown Verified 11/17/21 09:44 [facility] Past Medical History Medical History Diabetes mellitus Hypertension Surgical History Surgical History H/O cystoscopy H/O prostatectomy 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 History of lumbar fusion Hx of arthroscopy of knee Hx of cholecystectomy Social History Social History Smoking status: Former smoker Tobacco type: cigarettes and cigars Substance use: never Living arrangements: with family Occupation/Education: retired Exam Const: General: healthy appearing Nutritional Appearance: well nourished HENMT: Head: normal to inspection and no contusions Ears: external ears normal and EAC's normal Face/Nose/Sinus: Normal external nose present and Normal nares present Face and sinus: normal facial exam and sinuses nontender Mouth: Yes Normal oral and palatal mucosa present and Yes lip normal Eyes: Conjunctivae: conjunctivae normal EOM: EOMs intact bilaterally Neck: Neck: normal visual inspection and no meningeal signs Chest: Chest palpation & inspection: normal inspection of the chest and normal inspection of the chest Resp: Effort & Inspection: normal respiratory effort and not labored Cardio: Rate: regular rate Rhythm: regular rhythm GI: Inspection: non-distended GI Palp: Yes Soft to palpation Other: Soft and nontender abdomen and flank. Negative Chen's. Negative McBurney's. Negative Avni's. : General: Yes bladder normal to palpation and No Bladder palpation abnormal Back/Spine/Pelvis: Back: no CVA tenderness and No CVA tenderness Cervical Spine: No collar present Skin: General skin exam: normal color Rashes: no rashes Neuro: General: patient oriented x3 Speech: normal speech Extrem: General: normal to inspection and no clubbing, cyanosis or edema Psych: Mental Status: mental status grossly normal Affect: normal affect Course Vital Signs Vital signs: Vital Signs Temperature 37.0 C 11/29/22 22:47 Pulse Rate 90 11/29/22 22:47 Respiratory Rate 20 11/29/22 22:47 Blood Pressure 157/88 H 11/29/22 22:47 Pulse Oximetry 95 11/29/22 22:47 Oxygen Delivery Room Air 11/29/22 22:47 Temperature 37.0 C 11/29/22 22:47 Pulse Rate 80 11/30/22 01:00 Respiratory Rate 20 11/30/22 01:00 Blood Pressure 143/88 H 11/30/22 01:00 Pulse Oximetry 96 11/30/22 01:00 Oxygen Delivery Room Air 11/30/22 01:00 Medical Decision Making [facility] Narrative Medical decision making narrative: Differential diagnosis includes but not limited to nephrolithiasis versus pyelonephritis versus pancreatitis jane
[2022-11-29 23:19] LABS: Add Urine Microscopic? YES; Amorphous Sediment Urine Few; RBC Urine 51-75 /hpf (0-2); Uric Acid Crystals Urine Present /hpf
[2022-11-29] MEDS: MORPHINE SULFATE (*CRX) 4 MG/ML INJ IV PUSH (23:23)
[2022-11-29 23:43] LABS: Basophils Absolute Auto 0.02 K/mm3 (0.00-0.10); Basophils Percent Auto 0.3 % (0.0-1.0); Eosinophils Absolute Auto 0.06 K/mm3 (0.02-0.50); Eosinophils Percent Auto 0.9 % (1.0-6.0); Hematocrit 45.2 % (37.0-46.0); Hemoglobin 14.2 g/dL (12.4-15.3); Immature Granulocyte Absolute 0.02 K/mm3 (0.00-0.00); Immature Granulocyte Percent A 0.3 % (0.0-0.0); Immature Platelet Fraction Pct 4.2 % (1.0-7.0); Lymphocytes Absolute Auto 1.17 K/mm3 (1.10-4.50); Lymphocytes Percent Auto 18.1 % (18.0-42.0); Mean Corpuscular HGB Conc 31.4 g/dL (32.0-36.0); Mean Corpuscular Hemoglobin 31.3 pg (27.0-31.0); Mean Corpuscular Volume 99.6 fL (78.0-102.0); Mean Platelet Volume 10.2 fl (8.7-11.0); Monocytes Absolute Auto 0.72 K/mm3 (0.10-0.90); Monocytes Percent Auto 11.1 % (2.0-11.0); Neutrophils Absolute Auto 4.5 K/mm3 (1.7-7.2); Neutrophils Percent Auto 69.3 % (50.0-70.0); Platelet Count Result 95 K/mm3 (150-420); Red Blood Count 4.54 M/mm3 (4.70-6.10); Red Cell Distribution Width 13.6 % (11.6-14.4); White Blood Count 6.5 K/mm3 (4.8-10.8)
[2022-11-29 23:57] LABS: Alanine Aminotransferase 34 U/L (16-63); Albumin Level 3.2 g/dL (3.4-5.0); Alkaline Phosphatase 82 U/L (46-116); Anion Gap 13 mmol/L (8-16); Aspartate Amino Transferase 17 U/L (15-37); Bilirubin,Total 0.2 mg/dL (0.00-1.00); Blood Urea Nitrogen 34 mg/dL (7-18); Carbon Dioxide 25 mmol/L (21-32); Chloride 104 mmol/L (98-108); Estimated Glomerular Filt Rate 42; Glucose 154 mg/dL (70-99); Lipase 57 U/L (16-77); Osmolality Calculated 304 mOsm/kg (285-295); Potassium 3.6 mmol/L (3.5-5.1); Sodium 142 mmol/L (136-145); Total Protein 6.4 g/dL (6.4-8.2)
[2022-11-30] VITALS: BP 140/89; PULSE 80; RESP 20; O2SAT 96
[2022-11-30] MEDS: fentaNYL CITRATE INJ (*CRX) 100 MCG/2 ML VIAL 50 MCG IV PUSH (00:05)
--- NOTE | 2022-11-30 00:14 | PC.NURSE ---
IV infiltrated during CT, MD verbal order to proceed with out contrast
[2022-11-30 01:00] VITALS: BP 143/88; PULSE 80; RESP 20; O2SAT 96
[2022-11-30 01:56] VITALS: BP 139/89; PULSE 88; RESP 18; TEMP 36.6; O2SAT 98
--- NOTE | 2022-11-30 02:24 | PC.NURSE ---
10MG OXYCODONE GIVEN 020
== END 2022-11-30 02:27 | disposition home or self-care (01) ==
PROVIDERS: Emergency Provider Emergency Medicine; PCP Internal Medicine
DX: N20.0 Calculus of kidney (principal); R10.31 Right lower quadrant pain; E11.9 Type 2 diabetes mellitus without complications; I10 Essential (primary) hypertension; Z87.891 Personal history of nicotine dependence
CPT/HCPCS: 36415; 74176; 80053; 81001; 83690; 85025; 85055; 96374; 96375; 99284; J2270; J3010

== ENCOUNTER 2023-02-08 07:44 | Outpatient (CLI) | payer MEDICARE, SELFPAY ==
[2023-02-08 08:01] LABS: Basophils Absolute Auto 0.03 K/mm3 (0.00-0.10); Basophils Percent Auto 0.5 % (0.0-1.0); Eosinophils Absolute Auto 0.05 K/mm3 (0.02-0.50); Eosinophils Percent Auto 0.8 % (1.0-6.0); Hematocrit 46.1 % (37.0-46.0); Hemoglobin 15.4 g/dL (12.4-15.3); Immature Granulocyte Absolute 0.02 K/mm3 (0.00-0.00); Immature Granulocyte Percent A 0.3 % (0.0-0.0); Lymphocytes Absolute Auto 1.19 K/mm3 (1.10-4.50); Lymphocytes Percent Auto 19.6 % (18.0-42.0); Mean Corpuscular HGB Conc 33.4 g/dL (32.0-36.0); Mean Corpuscular Hemoglobin 32.1 pg (27.0-31.0); Monocytes Absolute Auto 0.49 K/mm3 (0.10-0.90); Monocytes Percent Auto 8.1 % (2.0-11.0); Neutrophils Absolute Auto 4.3 K/mm3 (1.7-7.2); Neutrophils Percent Auto 70.7 % (50.0-70.0); Platelet Count Result 237 K/mm3 (150-420); Red Cell Distribution Width 12.7 % (11.6-14.4); White Blood Count 6.1 K/mm3 (4.8-10.8)
[2023-02-08 08:06] LABS: Appearance Urine Clear (Clear); Bilirubin Urine Negative (Negative); Blood Urine 1+ (Negative); Color Urine Yellow (Yellow); Glucose Urine UA Negative (Negative); Ketones Urine Negative (Negative); Leukocyte Esterase Ur Negative (Negative); Nitrate Urine Negative (Negative); Protein Urine 1+ (Negative); Specific Grav Ur >= 1.030 (1.010-1.020); Urobilinogen Urine 0.2 mg/dL (0.2-1.0)
[2023-02-08 08:11] LABS: Add Urine Microscopic? YES; Squamous Epithelial Cell Urine Occasional /hpf (Few); WBC Urine None seen /hpf (0-3)
[2023-02-08 08:12] LABS: Bacteria Urine Trace /hpf
[2023-02-08 08:14] LABS: Hemoglobin A1C 6.3 % (<5.7)
[2023-02-08 08:15] LABS: Mucus Urine Few /lpf
[2023-02-08 08:20] LABS: Microalbumin Urine Random 77.8 mg/L
[2023-02-08 08:31] LABS: MALB Creatinine Ratio 16.5 mg/g (0-30)
[2023-02-08 09:09] LABS: Alanine Aminotransferase 31 U/L (16-63); Albumin Level 3.2 g/dL (3.4-5.0); Alkaline Phosphatase 77 U/L (46-116); Anion Gap 8 mmol/L (8-16); Aspartate Amino Transferase 13 U/L (15-37); Bilirubin,Total 0.3 mg/dL (0.00-1.00); Blood Urea Nitrogen 14 mg/dL (7-18); Calcium 9.2 mg/dL (8.5-10.1); Carbon Dioxide 31 mmol/L (21-32); Chloride 102 mmol/L (98-108); Cholesterol 138 mg/dL (0-200); Estimated Glomerular Filt Rate > 60; Free T4 Free Thyroxine 0.94 ng/dL (0.76-1.46); Glucose 106 mg/dL (70-99); HDL Direct 32 mg/dL (40-60); LDL Cholesterol Calculated 52 mg/dL (<130); Osmolality Calculated 292 mOsm/kg (285-295); Potassium 3.8 mmol/L (3.5-5.1); Sodium 141 mmol/L (136-145); Thyroid Stimulating Hormone 2.61 uIU/mL (0.36-3.74); Total Protein 6.2 g/dL (6.4-8.2); Triglycerides 268 mg/dL (0-150); Uric Acid 3.9 mg/dL (3.5-7.2)
== END 2023-02-08 07:45 | disposition home or self-care (01) ==
LOC: CHSLAB 07:46
PROVIDERS: PCP Internal Medicine; Visit Provider Internal Medicine
DX: I10 Essential (primary) hypertension (principal); E61.1 Iron deficiency; E78.2 Mixed hyperlipidemia; E11.9 Type 2 diabetes mellitus without complications; E79.0 Hyperuricemia without signs of inflammatory arthritis and tophaceous disease
CPT/HCPCS: 36415; 80053; 80061; 81001; 82043; 83036; 84439; 84443; 84481; 84550; 85025

== ENCOUNTER 2023-02-18 09:34 | Outpatient (CLI) | payer MEDICARE, SELFPAY ==
--- NOTE | ~2023-02-18 | XR_ITS ---
Clinical Indication: COPD PA and lateral views of the chest: Comparison: 01/27/2012 Findings: The lungs are clear, without evidence of focal consolidation or pleural effusion. Cardiome diastinal silhouette is within normal limits. Bones and soft tissues are unremarkable. Impression: Normal chest. Reviewed, dictated and finalized at location . Impression: Normal chest.
== END 2023-02-18 09:35 | disposition home or self-care (01) ==
LOC: CHSIMG 09:36
PROVIDERS: PCP Internal Medicine; Visit Provider Internal Medicine
DX: J44.9 Chronic obstructive pulmonary disease, unspecified (principal)
CPT/HCPCS: 71046

== ENCOUNTER 2023-08-03 07:29 | Outpatient (CLI) | payer MEDICARE, SELFPAY ==
[2023-08-03 07:49] LABS: Appearance Urine Clear (Clear); Basophils Absolute Auto 0.03 K/mm3 (0.00-0.10); Basophils Percent Auto 0.4 % (0.0-1.0); Bilirubin Urine Negative (Negative); Blood Urine 2+ (Negative); Color Urine Yellow (Yellow); Eosinophils Absolute Auto 0.05 K/mm3 (0.02-0.50); Eosinophils Percent Auto 0.7 % (1.0-6.0); Glucose Urine UA Negative (Negative); Hematocrit 49.6 % (37.0-46.0); Immature Granulocyte Absolute 0.03 K/mm3 (0.00-0.00); Immature Granulocyte Percent A 0.4 % (0.0-0.0); Ketones Urine Trace (Negative); Leukocyte Esterase Ur Negative (Negative); Lymphocytes Absolute Auto 1.14 K/mm3 (1.10-4.50); Lymphocytes Percent Auto 15.7 % (18.0-42.0); Mean Corpuscular HGB Conc 32.3 g/dL (32-36); Mean Corpuscular Hemoglobin 30.6 pg (27.0-31.0); Mean Corpuscular Volume 94.8 fL (78.0-102.0); Mean Platelet Volume 8.8 fl (8.7-11.0); Monocytes Absolute Auto 0.65 K/mm3 (0.10-0.90); Monocytes Percent Auto 8.9 % (2.0-11.0); Neutrophils Absolute Auto 5.38 K/mm3 (1.70-7.20); Neutrophils Percent Auto 73.9 % (50.0-70.0); Nitrate Urine Negative (Negative); Platelet Count Result 255 K/mm3 (150-420); Protein Urine Trace (Negative); Red Blood Count 5.23 M/mm3 (4.70-6.10); Red Cell Distribution Width 13.2 % (11.6-14.4); Specific Grav Ur >= 1.030 (1.010-1.020); Urobilinogen Urine 0.2 mg/dL (0.2-1.0); White Blood Count 7.3 K/mm3 (4.8-10.8)
[2023-08-03 07:52] LABS: Add Urine Microscopic? YES; Bacteria Urine Rare /hpf; Mucus Urine Few /lpf; WBC Urine None seen /hpf (0-3)
[2023-08-03 07:55] LABS: Microalbumin Urine Random 37.7 mg/L
[2023-08-03 07:57] LABS: Hemoglobin A1C 6.5 % (<5.7)
[2023-08-03 08:51] LABS: MALB Creatinine Ratio 8.9 mg/g (0-30)
[2023-08-03 09:19] LABS: Alanine Aminotransferase 33 U/L (16-63); Albumin Level 3.3 g/dL (3.4-5.0); Alkaline Phosphatase 81 U/L (46-116); Anion Gap 10 mmol/L (4-12); Aspartate Amino Transferase 15 U/L (15-37); Bilirubin,Total 0.3 mg/dL (0.00-1.00); Blood Urea Nitrogen 19 mg/dL (7-18); Calcium 8.7 mg/dL (8.5-10.1); Carbon Dioxide 28 mmol/L (21-32); Chloride 102 mmol/L (98-108); Cholesterol 169 mg/dL (0-200); Creatine Kinase 69 U/L (39-308); Estimated Glomerular Filt Rate > 60; Free T4 Free Thyroxine 0.92 ng/dL (0.76-1.46); Glucose 126 mg/dL (70-99); HDL Direct 39 mg/dL (40-60); LDL Cholesterol Calculated 67 mg/dL (<130); Osmolality Calculated 294 mOsm/kg (285-295); Potassium 4.2 mmol/L (3.5-5.1); Sodium 140 mmol/L (136-145); Thyroid Stimulating Hormone 3.23 uIU/mL (0.36-3.74); Total Protein 6.3 g/dL (6.4-8.2); Triglycerides 313 mg/dL (0-150)
== END 2023-08-03 07:30 | disposition home or self-care (01) ==
LOC: CHSLAB 07:31
PROVIDERS: PCP Internal Medicine; Visit Provider Internal Medicine
DX: I10 Essential (primary) hypertension (principal); E78.2 Mixed hyperlipidemia; E11.9 Type 2 diabetes mellitus without complications; N20.0 Calculus of kidney; E03.4 Atrophy of thyroid (acquired)
CPT/HCPCS: 36415; 80053; 80061; 81001; 82043; 82550; 83036; 84439; 84443; 85025

== ENCOUNTER 2023-08-11 10:45 | Outpatient (CLI) | payer MEDICARE, SELFPAY ==
[2023-08-11 15:44] LABS: Prostate Specific Antigen < 0.1 ng/mL (< OR = 4.0)
== END 2023-08-11 10:46 | disposition home or self-care (01) ==
LOC: CHSLAB 10:47
PROVIDERS: PCP Internal Medicine; Visit Provider Urology
DX: Z85.46 Personal history of malignant neoplasm of prostate (principal)
CPT/HCPCS: 36415; 84153

== ENCOUNTER 2024-02-08 07:32 | Outpatient (CLI) | payer MEDICARE, SELFPAY ==
[2024-02-08 07:48] LABS: Add Urine Microscopic? YES; Appearance Urine Clear (Clear); Basophils Absolute Auto 0.02 K/mm3 (0.00-0.10); Basophils Percent Auto 0.3 % (0.0-1.0); Bilirubin Urine 1+ (Negative); Blood Urine 2+ (Negative); Color Urine Yellow (Yellow); Eosinophils Absolute Auto 0.07 K/mm3 (0.02-0.50); Eosinophils Percent Auto 1.1 % (1.0-6.0); Glucose Urine UA Negative (Negative); Hematocrit 45.9 % (37.0-46.0); Hemoglobin 15.6 g/dL (12.4-15.3); Immature Granulocyte Absolute 0.03 K/mm3 (0.00-0.00); Immature Granulocyte Percent A 0.5 % (0.0-0.0); Ketones Urine Trace (Negative); Leukocyte Esterase Ur Negative (Negative); Lymphocytes Absolute Auto 1.27 K/mm3 (1.10-4.50); Lymphocytes Percent Auto 19.2 % (18.0-42.0); Mean Corpuscular Hemoglobin 32.2 pg (27.0-31.0); Mean Corpuscular Volume 94.8 fL (78.0-102.0); Mean Platelet Volume 8.7 fl (8.7-11.0); Monocytes Absolute Auto 0.59 K/mm3 (0.10-0.90); Monocytes Percent Auto 8.9 % (2.0-11.0); Neutrophils Absolute Auto 4.64 K/mm3 (1.70-7.20); Nitrate Urine Negative (Negative); Platelet Count Result 252 K/mm3 (150-420); Protein Urine Trace (Negative); Red Blood Count 4.84 M/mm3 (4.70-6.10); Red Cell Distribution Width 13.3 % (11.6-14.4); Specific Grav Ur 1.025 (1.010-1.020); Urobilinogen Urine 0.2 mg/dL (0.2-1.0); White Blood Count 6.6 K/mm3 (4.8-10.8)
[2024-02-08 07:55] LABS: Microalbumin Urine Random 29.4 mg/L
[2024-02-08 07:56] LABS: Bacteria Urine Trace /hpf; Mucus Urine Moderate /lpf; RBC Urine 0-2 /hpf (0-2); Squamous Epithelial Cell Urine Few /hpf (Few); WBC Urine None seen /hpf (0-3)
[2024-02-08 08:12] LABS: Creatinine Urine 402.32 mg/dL (40-278); MALB Creatinine Ratio 7.3 mg/g (0-30)
[2024-02-08 08:28] LABS: Alanine Aminotransferase 32 U/L (16-63); Albumin Level 3.3 g/dL (3.4-5.0); Alkaline Phosphatase 88 U/L (46-116); Anion Gap 6 mmol/L (4-12); Aspartate Amino Transferase 16 U/L (15-37); Bilirubin,Total 0.3 mg/dL (0.00-1.00); Blood Urea Nitrogen 14 mg/dL (7-18); Calcium 8.9 mg/dL (8.5-10.1); Carbon Dioxide 33 mmol/L (21-32); Chloride 102 mmol/L (98-108); Cholesterol 138 mg/dL (0-200); Creatine Kinase 94 U/L (39-308); Estimated Glomerular Filt Rate > 60; Glucose 95 mg/dL (70-99); HDL Direct 36 mg/dL (40-60); LDL Cholesterol Calculated 48 mg/dL (<130); Osmolality Calculated 292 mOsm/kg (285-295); Potassium 3.8 mmol/L (3.5-5.1); Sodium 141 mmol/L (136-145); Total Protein 6.4 g/dL (6.4-8.2); Triglycerides 270 mg/dL (0-150)
== END 2024-02-08 07:33 | disposition home or self-care (01) ==
LOC: CHSLAB 07:34
PROVIDERS: PCP Internal Medicine; Visit Provider Internal Medicine
DX: E11.9 Type 2 diabetes mellitus without complications (principal); I10 Essential (primary) hypertension; E78.2 Mixed hyperlipidemia; Z85.46 Personal history of malignant neoplasm of prostate
CPT/HCPCS: 36415; 80053; 80061; 81001; 82043; 82550; 83036; 85025

== ENCOUNTER 2024-08-09 07:45 | Outpatient (CLI) | payer MEDICARE, SELFPAY ==
--- OUTSIDE RECORDS SUMMARY | 2024-08-09 07:49 | XMS_ITS | Referral Summary ---
Author Organization [facility] Address [address] [place] [address] Care Team Providers Care Inspection Supervisor Name Role Phone Hilary Wynn MD Primary Care Provider [phone] Martinez Adams MD Unavailable [phone] Carlitos Madison MD PhD Unavailable Encounters Date Type Department Care Team Description 08/01/2024 Results Follow-Up [facility] Dermatology [address] [place] [address] Carlitos Madison MD PhD 07/28/2024 Orders Only [facility] [address] [place] [address] Carlitos Madison MD PhD Neoplasm of unspecified behavior of bone, soft tissue, and skin 07/28/2024 9:15 AM CDT Office Visit [facility] Dermatology [address] [place] [address] Carlitos Madison MD PhD Seborrheic keratoses (Primary Dx); Multiple benign nevi; History of malignant melanoma; History of nonmelanoma skin cancer; Actinic keratosis; Neoplasm of unspecified behavior of bone, soft tissue, and skin 05/23/2024 7:55 AM SOLE CONDITIONER - 05/23/2024 8:25 AM SOLE CONDITIONER Surgery [address] [address] Kristofer Gonzalez MD COLON BIOPSY 05/23/2024 7:47 AM SOLE CONDITIONER Anesthesia Event [address] [address] Donato Stubbs MD Williams, Calvin E., MD 05/23/2024 6:52 AM SOLE CONDITIONER - 05/23/2024 9:25 AM SOLE CONDITIONER Hospital Encounter [address] [address] Kristofer Gonzalez MD Family history of colon cancer in father; Personal history of colonic polyps; Encounter for screening colonoscopy; 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; History of colonic polyps Discharge Disposition: Discharge to home or self care from Last 3 Months Allergies Active Allergy Reactions Criticality Noted Date Comments Adhesive Rash Medium 03/20/2021 Adhesive Tape-Silicones Rash Medium 03/20/2021 Medications potassium citrate ER (UROCIT-K) 10 mEq (1,080 mg) CR tabletIndicatio ns:Calcium Renal Calculi Prevention Take 1 tablet (10 mEq total) by mouth 2 (two) times a day [address] (PROTONIX) 40 mg EC tabletIndicatio ns:GERD Take 1 tablet (40 mg total) by mouth 2 (two) times a day Active losartan (COZAAR) 100 mg tabletIndicatio ns:hypertension Take 1 tablet (100 mg total) by mouth every morning Hold morning of surgery. 0 Active hydroCHLOROthia zide (HYDRODIURIL) 12.5 mg tabletIndicatio ns:hypertension Take 1 tablet (12.5 mg total) by mouth every morning Hold morning of surgery. 0 Active ferrous sulfate 325 mg (65 mg of elemental iron) tabletIndicatio ns:Iron Deficiency Anemia Take 1 tablet (325 mg total) by mouth daily with breakfast Last dose 08/27 Active nebivoloL (BYSTOLIC) 5 mg tablet 2 Active Accu-Chek Softclix Lancets lancets 2 Active Ozempic 2 mg/dose (8 mg/3 mL) pen injector injection Inject 2 mg under the skin every 7 days 4 Active Active Problems Problem Noted Date Diagnosed Date Family history of colon cancer in father 024 Personal history of colonic polyps 08/17/2023 Encounter for screening colonoscopy 08/17/2023 Paul's esophagus with dysplasia 08/17/2023 Lipoma of neck 07/09/2021 Overview (07/09/2021): Added automatically from request for surgery [id number] Sebaceous cyst 02/28/2021 Overview (02/28/2021): Added automatically from request for surgery [id number] Malignant melanoma of left u pper extremity including shoulder 09/19/2020 Overview (09/19/2020): Added automatically from request for surgery [id number] 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 He has history of GI bleeding. No sign of bleeding at this time. Schedule colonoscopy for evaluation. No need for further evaluation the stone. 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 Endoscopic removal was very difficult and he was treated at [facility] with couple endoscopy procedures. No need for endoscopy at this time as long as there is no sign of melena. Resolved Problems Problem Noted Date Diagnosed Date Resolved Date Encounter for screening colonoscopy 03/07/2020 04/11/2021 Overview (03/07/2020): Added automatically from request for surgery [id number] Social History Tobacco Use Types Packs/Day Years Used Date Smoking Tobacco: Former Cigars Smokeless Tobacco: Former Snuff, Chew Quit: 2000 Tobacco Cessation:Counseling Given: Not Answered Alcohol Use Standard Drinks/Week Comments Yes 0 (1 standard drink = 0.6 oz pur e alcohol) occasional AUDIT-C Answer Date Recorded Q1: How often do you have a drink containing alc ohol? 2-3 times a week 05/23/2024 Q2: How many drinks containi ng alcohol do you have on a typical day when you are drinking? 1 or 2 05/23/2024 Frequency of Binge Drinking Not on file 05/04 Personal Safety Answer Date Recorded Have you ever been in or are you currently in a harmful physical or emotional relationship or is someone making you feel afraid or unsafe? Denies 05/23/2024 Sex and Gender Information Value Date Recorded Sex Assigned at Not on file Legal Sex Male 10:46 AM SOLE CONDITIONER Gender Identity Not on file Sexual Orientation Not on file Last Filed Vital Signs Vital Sign Reading Time Taken Comments Blood Pressure 134/68 05/23/2024 9:02 AM SOLE CONDITIONER Pulse 73 05/23/2024 9:02 AM SOLE CONDITIONER Temperature 36.9 C (98.5 F) 05/23/2024 9:02 AM SOLE CONDITIONER Respiratory Rate 18 05/23/2024 9:02 AM SOLE CONDITIONER Oxygen Saturation 96% 05/23/2024 9:02 AM SOLE CONDITIONER Inhaled Oxygen Concentration - - Weight 99.8 kg (220 lb) 05/23/2024 7:16 AM SOLE CONDITIONER Height 177.8 cm (5' 10 ) 05/23/2024 7:16 AM SOLE CONDITIONER Body Mass Index 31.57 05/23/2024 7:16 AM SOLE CONDITIONER Plan of Treatment Not on file Medical Devices Implanted Type Area Clinical Team Manager Device Identifier Shelf Expiration Date Model / Serial / Lot Hip Replacement Right: Hip Procedures Procedure Name Priority Date/Time Associated Diagnosis Comments SURGICAL PATHOLOGY Routine 07/28/2024 12:00 AM CDT Neoplasm of unspecified behavior of bone, soft tissue, and skin SURGICAL PATHOLOGY STAT 05/23/2024 2:11 PM SOLE CONDITIONER Family history of colon cancer in father History of colonic polyps Encounter for screening colonoscopy 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 ESOPHAGOGASTRODUODENOSCOPY BIOPSY 05/23/2024 7:47 AM SOLE CONDITIONER Family history of colon cancer in father Personal history of colonic polyps Encounter for screening colonoscopy 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 COLON BIOPSY 05/23/2024 7:47 AM SOLE CONDITIONER Family history of colon cancer in father Personal history of colonic polyps Encounter for screening colonoscopy 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 POCT GLUCOSE DEVICE Routine 05/23/2024 7:43 AM SOLE CONDITIONER EGD 05/23/2024 7:19 AM SOLE CONDITIONER COLONOSCOPY 05/23/2024 7:[address] ABDOMEN PELVIS WO CONTRAST ED 4:35 PM CDT from Last 3 Months or Most Recently Relevant to Health Maintenance Results * Surgical pathology (07/28/2024 12:00 AM CDT) Tissue specimen (specimen) (Skin, shave biopsy) 07/28/2024 07/28/2024 12:56 PM CDT [facility] - 08/01/2024 2:48 PM CDT EPIC results best viewed via link to PDF [facility] [address] [place] [address], [address], [place] [address] [email or web address] Note to Patients: This report may contain a detailed description of human tissue sent by a health care provider to the laboratory for pathologic evaluation. The content of this report is essential for diagnosis and may provide important critical findings. This information may be unfamiliar to patients to review without a medical professional present. It is advised that the patient review this report in the presence of a health care provider who can answer questions and explain the details. FINAL REPORT Patient Information: PATIENT NAME: ALEX PARKER SEX: M : 1950 (Age: 74) Specimen Information: COLLECTED: 07/28/2024 RECEIVED: 07/28/2024 REPORTED: 08/01/2024 Submitting Physician Information: Carlitos Madison M.D. Dermatology [facility] [address], [address] [place] [address], DERMATOPATHOLOGY REPORT RESULTS DIAGNOSIS: SKIN, RIGHT MID BACK, SHAVE BIOPSY: COMPOUND MELANOCYTIC NEVUS Note: There are also benign keratoses. jules/lac By this signature, I attest that the above diagnosis is based upon my personal examination of the slides(and/or other material indicated in the diagnosis). Brooke Lomas M.D. Report Electronically Reviewed and Signed Out By Brooke Lomas M.D. 08/01/2024 14:48:27 CLINICAL INFORMATION ATN R/O MM SPECIMEN DATA MICROSCOPIC DESCRIPTION: Enlarged monomorphous melanocytes are arranged as solitary units and nests at the dermo-epidermal junction and as uniform nests, cords and strands within the dermis. There is hyperkeratosis, papillated and reticulated epithelial hyperplasia and horn pseudocysts. (D22.9; L82.1) GROSS DESCRIPTION: Received in a formalin-containing bottle is a superficial fragment of brown, variegated, and hair-bearing skin measuring 1.3 by 1.0 by 0.7 cm. The surgical margin is inked blue. The specimen is sectioned into 5 pieces and submitted entirely in a single cassette. Due to shrinkage, measurements may be different than those at time of procedure. jules/mat ICD-9 A; ZSD.1411 ZSD.407 Clerical Data A; 36209 The characteristics of special, immunohistochemical, and immunofluorescence stains and in-situ hybridization tests performed by the [facility] were deemed acceptable in ongoing software quality assurance engineer measures and in compliance with regulations drawn from the Clinical Laboratory Improvement Act bc8914 (CLIA '88). Control reactions for all stains performed were deemed adequate and appropriate by a pathologist prior to evaluation of patient tissue. Some diagnoses were rendered with the assistance of laboratory-developed tests utilizing analyte-specific reagents; the performance characteristic of these tests were determined by [facility] and are not cleared or approved by the US Food an Drug administration. Laboratory developed test may only be performed in a facility that is certified by the [facility] as a high-complexity laboratory under CLIA '88. These tests are used for clinical purposes and are not investigational. us Carlitos Madison MD PhD LAB PATHOLOGY OR DERABLES Final Result [facility] CENTER [address] [place] [id number] * Surgical pathology (05/23/2024 2:11 PM SOLE CONDITIONER) Tissue specimen (specimen) (Gastric/Stomach biopsy) 05/23/2024 8:23 AM SOLE CONDITIONER Tissue specimen (specimen) (Polyp(s), colon/colorectal, esophageal, gastric) 05/23/2024 8:24 AM SOLE CONDITIONER Tissue specimen (specimen) (Polyp(s), colon/colorectal, esophageal, gastric) 05/23/2024 8:24 AM SOLE CONDITIONER Narrative PATHOLOGY [facility] - 05/25/2024 3:13 PM SOLE CONDITIONER EPIC results best viewed via link to PDF [facility] Department of Pathology [address] [place] [address] Note to Patients: This report may contain a detailed description of human tissue sent by a health care provider to the laboratory for pathologic evaluation. The content of this report is essential for diagnosis and may provide important critical findings. This information may be unfamiliar to patients to review without a medical professional present. It is advised that the patient review this report in the presence of a health care provider who can answer questions and explain the details. Final Report Patient Name: ALEX PARKER Address: [address] [place] [address]- Gender: M : 1950 (Age: 74) Service: Gastro Location: [facility] Hospital #: [id number] Patient Type: [facility] Taken: 05/23/2024 Received: 05/23/2024 Accessioned: 05/23/2024 Reported: 05/25/2024 Physician(s):Dr. Kristofer Gonzalez M.D. Diagnosis: A. GE junction, biopsy: - Fragments of benign squamocolumnar mucosa. - No evidence of intestinal metaplasia, dysplasia or malignancy. B. Rectum, polypectomies: - Fragments of tubular adenomas. C. Colon, sigmoid, polypectomy: - Fragments of tubular adenomas. Katharine Dominique M.D. Report Electronically Reviewed and Signed Out By Katharine Dominique M.D. 05/25/2024 15:13:23 Specimen(s) Received: A: GE Junction Biopsy B: Rectal polyp x 2 C: Sigmoid polyp x 7 Microscopic Description: A. Microscopic examination of the gastro-esophageal biopsy, examined at multiple levels, shows fragments of benign squamocolumnar mucosa with minimal nonspecific, reactive alterations. There is a minimal nonspecific chronic inflammatory infiltrate, however there are no changes diagnostic of reflux esophagitis, eosinophilic esophagitis, or any other specific clinical etiology. There is no evidence of intestinal-type metaplasia, dysplasia or malignancy. B & C. Microscopic examination of the rectum and sigmoid colon both show fragments of tubular adenomas without evidence of high-grade dysplasia or malignancy. Clinical History: Family history of colon cancer in father. Personal history of colonic polyps. 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 Screening colonoscopy. EGD. Gross Description: The specimen is submitted in three formalin containers labeled ALEX DIETZPHILL . A. The first container is labeled GE junction . It is 5 fragments of reeder tissue between 1 and 2 mm. All in A. B. The second container is labeled rectal polyp x2 . It is four fragments of reeder tissue between 1 and 4 mm. All in B. C. The third container is labeled sigmoid polyp x7 . It is multiple fragments of reeder tissue between 1 and 4 mm. All in C. T.A. Kimberly Call., P.A./Carmita Rivera M.D. REPORT IMAGES AND SCANNED DOCUMENTS, IF INCLUDED, ONLY VIEWABLE IN PDF VERSION OF REPORT The performance characteristics of some immunohistochemical stains, fluorescence in-situ hybridization tests and immunophenotyping by flow cytometry cited in this report (if any) were determined by the Surgical Pathology Department at [facility] as part of an ongoing software quality assurance engineer program and in compliance with federally mandated regulations drawn from the Clinical Laboratory Improvement Act of 1988 (CLIA '88). Some of these tests rely on the use of analyte specific reagents and are subject to specific labeling requirements by the US Food and Drug Administration. Such diagnostic tests may only be performed in a facility that is certified by the Department of Health and Human Services as a high complexity laboratory under CLIA '88. The FDA has determined that such clearance or approval is not necessary. This test is used for clinical purposes. It should not be regarded as investigational or for research. Nevertheless, federal rules concerning the medical use of analyte specific reagents require that the following disclaimer be attached to the report: This test was developed and its performance characteristics determined by the Surgical Pathology Department [facility]. It has not been cleared or approved by the U. S. Food and Drug Administration. Note for decalcified specimens: This assay has not been validated on decalcified tissues. Results should be interpreted with caution given the possibility of false negativity on decalcified specimens Kristofer Gonzalez MD LAB PATHOLOGY ORDERABLES F inal Result PATHOLOGY [facility] [address] [place] [address] * POCT glucose (05/23/2024 7:43 AM SOLE CONDITIONER) Glucose, POC 132 70 - 199 mg/dL Blood 05/23/2024 7:43 AM SOLE CONDITIONER 05/23/2024 7:43 AM SOLE CONDITIONER Kristofer Gonzalez MD LAB POCT ORDERABLES - ESDRAS CE Final Result Performing Organization Address [facility]/ZIP Co de Phone Number CERNER [facility] [address] [facility] [place] [address] * EGD (05/23/2024 7:19 AM SOLE CONDITIONER) Anatomical Region Laterality Modality Other Narrative Procedure Note Kristofer Gonzalez MD - 05/23/2024 7:19 AM CST [facility] Patient Name: Alex Parker Procedure Date: 05/23/2024 7:19 AM Date of : 1950 Admit Type: Outpatient Age: 74 Gender: Male Attending MD: Kristofer Gonzalez M.D. Room: [facility] ENDOSCOPY ROOM 1 Note Status: Finalized Patient Profile: This is a 74 year old male. History of gastroesophageal reflux disease and refluxesophagitis and smoking. He has history of intestinalmetaplasia and Paul's esophagus in the remote past. Hetakes Protonix daily. Procedure: Upper GI endoscopy Indications: Esophageal reflux, Follow-up of Paul'sesophagus Referring MD: Hilary Wynn M.D. Providers: Kristofer Gonzalez M.D. Impression: - Normal examined duodenum. - Erythematous mucosa in the prepyloric region ofthe stomach likely nonspecific. - Reflux esophagitis.. Biopsied. Recommendation: - Follow an antireflux regimen. - Continue present medications. Continue Protonix daily. - Very important to stop smoking. Medicines: Monitored Anesthesia Care Complications: No immediate complications. Estimated Blood Loss: Estimated blood loss: none. Procedure: Pre-Anesthesia Assessment: - Prior to the procedure, a History and Physicalwas performed, and patient medications and allergieswere reviewed. The patient's tolerance of previous anesthesia was also reviewed. The risks andbenefits of the procedure and the sedation options and risks were discussed with the patient. All questions were answered, and informed consent was obtained. Prior Anticoagulants: The patient has taken noanticoagulant or antiplatelet agents. ASA Grade Assessment: Per anesthesia note and evaluation. After reviewing the risks and benefits, the patient was deemed in satisfactory condition to undergo the procedure. The benefits, risks, and alternatives to theprocedure and sedation were discussed and informed consentwas obtained. The scope was passed under direct vision. The Endoscope [id number] was introduced through the mouth, and advanced to the second partof duodenum. The upper GI endoscopy was accomplished without difficulty. The patient tolerated the procedure well. Findings: The examined duodenum was normal. Diffuse mildly erythematous mucosa without bleeding was found in the prepyloric region of the stomach. Retroflexion stomach in the gastric fundus and cardia were unremarkable. The Z-line was irregular and was found 40 cm from the incisors suggesting reflux esophagitis. Couple of small islands of erythemanoted at the GE junction.. Biopsies were taken with a cold forceps for histology. Electronically signed by Kristofer Gonzalez M.D. Kristofer Gonzalez M.D. 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 All rights reserved. The codes documented in this report are preliminary and upon miller head reviewmay be revised to meet current compliance requirements. Recognized by the [employer] for promoting quality in endoscopy Kristofer Gonzalez MD ENDOSCOPY PROCEDURES Final Result * Colonoscopy (05/23/2024 7:18 AM SOLE CONDITIONER) Anatomical Region Laterality Modality Other Narrative Procedure Note Kristofer Gonzalez MD - 05/23/2024 7:[address] [facility] Patient Name: Alex Parker Procedure Date: 05/23/2024 7:18 AM Date of : 1950 Admit Type: Outpatient Age: 74 Gender: Male Attending MD: Kristofer Gonzalez M.D. Room: [facility] ENDOSCOPY ROOM 1 Note Status: Finalized Patient Profile: This is a 74 year old male. History of multiple adenoma polyps. Father had colon cancer. Procedure: Colonoscopy Indications: Screening in patient at increased risk: Familyhistory of 1st-degree relative with colorectal cancer, High risk colon cancer surveillance: Personal history of colonic polyps, Last colonoscopy: May 2020 Referring MD: Hilary Wynn M.D. Providers: Kristofer Gonzalez M.D. Impression: - Seven 3 to 7 mm polyps in the sigmoid colon andin the descending colon, removed with a jumbo cold forceps. Resected and retrieved. - Two 3 to 4 mm polyps in the rectum, removed witha jumbo cold forceps. Resected and retrieved. - Internal hemorrhoids. Recommendation: - Await pathology results. - Repeat colonoscopy in 2 years for surveillance. - Smoking is a major risk factor for cancer. Medicines: Monitored Anesthesia Care Complications: No immediate complications. Estimated Blood Loss: Estimated blood loss: none. Procedure: Pre-Anesthesia Assessment: - Prior to the procedure, a History and Physicalwas performed, and patient medications and allergieswere reviewed. The patient's tolerance of previous anesthesia was also reviewed. The risks andbenefits of the procedure and the sedation options and risks were discussed with the patient. All questions were answered, and informed consent was obtained. Prior Anticoagulants: The patient has taken noanticoagulant or antiplatelet agents. ASA Grade Assessment: Per anesthesia note and evaluation. After reviewing the risks and benefits, the patient was deemed in satisfactory condition to undergo the procedure. The benefits, risks and alternatives of theprocedure and sedation were discussed and informed consentwas obtained. All questions were answered. Please referto the signed informed consent document in the medical record. The bowel preparation used was Miralax via split dose instruction. The bowel preparation usedwas bisacodyl tablets via split dose instruction. The scope was passed under direct vision. The Pediatric Colonoscope [id number] was introduced through the anus and advanced to the the cecum, identified by appendiceal orifice and ileocecalvalve. The quality of the bowel preparation was good.Bowel prep was administered using a split dose. Findings: The perianal and digital rectal examinations were normal. The transverse colon, ascending colon and cecum appeared normal. Seven semi-sessile polyps were found in the sigmoid colon anddescending colon. The polyps were 3 to 7 mm in size. These polyps were removedwith a jumbo cold forceps. Resection and retrieval were complete. Two semi-sessile polyps were found in the rectum. The polyps were 3to 4 mm in size. These polyps were removed with a jumbo cold forceps. Resection and retrieval were complete. Internal hemorrhoids were found during retroflexion. The hemorrhoids were small. Electronically signed by Kristofer Gonzalez M.D. Kristofer Gonzalez M.D. 05/23/2024 8:39:31 AM Number of Addenda: 0 Note Initiated On: 05/23/2024 7:18 AM Procedure Code(s): --- Professional --- 90127, Colonoscopy, flexible; with biopsy, single or multiple Diagnosis Code(s): --- Professional --- Z80.0, Family history of malignant neoplasm of digestive organs Z86.010, Personal history of colonic polyps K64.8, Other hemorrhoids D12.5, Benign neoplasm of sigmoid colon D12.4, Benign neoplasm of descending colon D12.8, Benign neoplasm of rectum CPT copyright 2020 [employer]. All rights reserved. The codes documented in this report are preliminary and upon miller head reviewmay be revised to meet current compliance requirements. Recognized by the [employer] for promoting quality in endoscopy Kristofer Gonzalez MD ENDOSCOPY PROCEDURES Final Result * CT Abdomen Pelvis WO Contrast (11/15/2022 4:35 PM CDT) Anatomical Region Laterality Modality Body N/A Computed Tomogra phy 11/15/2022 4:43 PM CDT Narrative 11/15/2022 4:57 PM CDT EXAM DESCRIPTION: CT ABDOMEN PELVIS WO CONTRAST REASON FOR STUDY: left flank pain Table formatting from the original note was not included. Images from the original note were not included. Patient to ED c/o right flank pain that started a couple hours ago. Patient has a history of kidney stones. Also reports dark urine. TECHNIQUE: CT scan of the abdomen and pelvis performed without intravenous and without oral contrast using helical scanning technique. Reconstructed coronal and sagittal MPR images reviewed. All images stored on PACS. Automated exposure control was used as a dose optimization technique for this examination. COMPARISON: 09/26/2010 REFERENCE: Per ACR white paper recommendations, unless otherwise specified no follow-up imaging is recommended for incidental renal and adrenal lesions per consensus recommendations based on imaging criteria. Further lab evaluation could be pursued based on clinical findings. FINDINGS: The sensitivity for detection of visceral lesions is diminished without the use of intravenous contrast. LOWER CHEST: No significant pulmonary abnormalities. No effusion. LIVER: Normal size. No identified cystic or solid masses. GALLBLADDER: Surgically absent. BILE DUCTS: No intrahepatic or extrahepatic ductal dilatation. SPLEEN: Normal size. No focal lesions. PANCREAS: No identified cystic or solid masses. No significant calcifications. No adjacent inflammation or peripancreatic fluid collections. Pancreatic duct not dilated. ADRENALS: Stable low-density nodules on both adrenal glands characteristic of bilateral adrenal adenomas. KIDNEYS/URINARY TRACT: 12 mm fat containing lesion on the upper pole of the right kidney characteristic of an angiomyolipoma. There is mild right hydronephrosis and hydroureter due to a 2 mm obstructing stone in the distal right ureter. This is located approximately 8 cm proximal to the right ureterovesical junction. There are punctate nonobstructing bilateral renal stones. Urinary bladder is unremarkable. GI: No dilated bowel loops. No obvious wall thickening. Normal appendix. No significant diverticular disease. PERITONEUM: No ascites or free air. RETROPERITONEUM: No mass or adenopathy. REPRODUCTIVE: No significant abnormality. Penile prosthesis with reservoir in anterior right lower quadrant. Prostatectomy. VASCULATURE: No abdominal aortic aneurysm. MUSCULOSKELETAL: Multilevel degenerative changes are present without fracture. No concerning lesions are present. Right hip arthroplasty with resulting artifact in the pelvis. Postoperative changes of prior fusion at the lumbosacral junction. OTHER: No other abnormality. IMPRESSION: Mild right hydronephrosis and hydroureter due to a 2 mm obstructing stone in the distal right ureter. This is located approximately 8 cm proximal to the right ureterovesical junction. Punctate nonobstructing bilateral renal stones. 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 Surgical absence of the gallbladder. Stable low-density nodules on both adrenal glands characteristic of bilateral adrenal adenomas. THIS IS AN ELECTRONICALLY VERIFIED FINAL REPORT 11/15/2022 4:57 PM - Electronically signed by Agustín Knox M.D. KT: [email or web address] Report ID: [id number] Reading Location: [id number] Procedure Note Agustín Knox MD - 11/15/2022 EXAM DESCRIPTION: CT ABDOMEN PELVIS WO CONTRAST REASON FOR STUDY: left flank pain Table formatting from the original note was not included. Images from the original note were not included. Patient to ED c/o right flank painthat started a couple hours ago. Patient has a history of kidney stones. Also reports dark urine. TECHNIQUE: CT scan of the abdomen and pelvis performed without intravenousand without oral contrast using helical scanning technique. Reconstructed coronal and sagittal MPR images reviewed. All images stored on PACS.Automated exposure control was used as a dose optimization technique for this examination. COMPARISON: 09/26/2010 REFERENCE: Per ACR white paper recommendations, unless otherwise specifiedno follow-up imaging is recommended for incidental renal and adrenal lesionsper consensus recommendations based on imaging criteria. Further labevaluation could be pursued based on clinical findings. FINDINGS: The sensitivity for detection of visceral lesions is diminished withoutthe use of intravenous contrast. LOWER CHEST: No significant pulmonary abnormalities. No effusion. LIVER: Normal size. No identified cystic or solid masses. GALLBLADDER: Surgically absent. BILE DUCTS: No intrahepatic or extrahepatic ductal dilatation. SPLEEN: Normal size. No focal lesions. PANCREAS: No identified cystic or solid masses. No significant calcifications. No adjacent inflammation or peripancreatic fluidcollections. Pancreatic duct not dilated. ADRENALS: Stable low-density nodules on both adrenal glandscharacteristic of bilateral adrenal adenomas. KIDNEYS/URINARY TRACT: 12 mm fat containing lesion on the upper pole ofthe right kidney characteristic of an angiomyolipoma. There is mild right hydronephrosis and hydroureter due to a 2 mm obstructing stone in thedistal right ureter. This is located approximately 8 cm proximal to the right ureterovesical junction. There are punctate nonobstructing bilateralrenal stones. Urinary bladder is unremarkable. GI: No dilated bowel loops. No obvious wall thickening. Normalappendix. No significant diverticular disease. PERITONEUM: No ascites or free air. RETROPERITONEUM: No mass or adenopathy. REPRODUCTIVE: No significant abnormality. Penile prosthesis withreservoir in anterior right lower quadrant. Prostatectomy. VASCULATURE: No abdominal aortic aneurysm. MUSCULOSKELETAL: Multilevel degenerative changes are present without fracture. No concerning lesions are present. Right hip arthroplasty with resulting artifact in the pelvis. Postoperative changes of prior fusionat the lumbosacral junction. OTHER: No other abnormality. IMPRESSION: Mild right hydronephrosis and hydroureter due to a 2 mm obstructing stonein the distal right ureter. This is located approximately 8 cm proximal tothe right ureterovesical junction. Punctate nonobstructing bilateral renal stones. 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 Surgical absence of the gallbladder. Stable low-density nodules on both adrenal glands characteristic ofbilateral adrenal adenomas. THIS IS AN ELECTRONICALLY VERIFIED FINAL REPORT 11/15/2022 4:57 PM - Electronically signed by Agustín Knox M.D. KT: SKY Report ID: [id number] Reading Location: [place] [address] Zhane Perez MD IMG CT PROCEDURES Final R esult from Last 3 Months or Most Recently Relevant to Health Maintenance Insurance [employer] MEDICARE [facility] Address: [address] [address] [place] [address] [facility] MEDICARE T MEDICARE Advance Directives For more information, please contact: [phone] Documents on File Type Date Recorded Patient Instrumentation Supervisor Expl anation ADVANCE DIRECTIVE 03/05/2021 11:17 AM Aysha r of Climatology Teacher-Medical * Full Code (Latest Code Status on File) Date Activated Date Inactivated Comments 05/23/2024 7:11 AM 05/23/2024 1:30 PM * Full Code Date Activated Date Inactivated Comments 05/23/2024 7:11 AM 05/23/2024 7:11 AM * Full Code Date Activated Date Inactivated Comments 12/18/2020 9:54 AM 12/18/2020 3:48 PM * Full Code Date Activated Date Inactivated Comments 12/18/2020 9:54 AM 12/18/2020 9:54 AM * Full Code Date Activated Date Inactivated Comments 05/24/2020 7:12 AM 05/24/2020 1:01 PM Care Teams Inspection Supervisor Relationship Specialty Start Date End Date Hilary Wynn MD [address] [place] [id number] PCP - General 08/08/16 Martinez Adams MD [address] [place] [address] Consulting Physician Otolaryngology 09/01/21 Carlitos Madison MD PhD [address] [place] [address] Golf Sales Associate Dermatology 04/13/22
--- OUTSIDE RECORDS SUMMARY | 2024-08-09 07:49 | XMS_ITS | Encounter Summary ---
Author Organization [facility] Address [address] [facility] [facility] [address] [place] [id number] Care Team Providers Care A R Specialist Name Role Phone Hilary Wynn MD Primary Care Provider + [phone] Martinez Adams MD Unavailable [phone] Carlitos Madison MD PhD Unavailable Encounter Details Date Type Department Care Team ([facility] Contact Info) Description 02/15/2013 Orders Only [facility] Health Information Management [address] [place] [id number] Scanning, Provider Social History Tobacco Use Types Packs/Day Years Used Date Smoking Tobacco: Never Assessed Sex and Gender Information Value Date Recorded Sex Assigned at Not on file 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 Gender Identity Not on file Sexual Orientation Not on file documented as of this encounter Plan of Treatment Not on file documented as of this encounter Procedures Procedure Name Priority Date/Time Associated Diagnosis Comments GI - RESULT 02/15/2013 documented in this encounter Results * GI - RESULT (02/15/2013) Anatomical Region Laterality Modality Other us Provider Scanning Edited Result - Final documented in this encounter Visit Diagnoses Not on filedocumented in this encounter Care Teams A R Specialist Relationship Specialty Start Date End Date Hilary Wynn MD [address] [place] [address] PCP - General 08/08/16 Martinez Adams MD [address] [place] [address] Consulting Physician Otolaryngology 09/01/21 Carlitos Madison MD PhD [address] [place] [address] Installation And Service Technician Dermatology 04/13/22 documented as of this encounter
--- OUTSIDE RECORDS SUMMARY | 2024-08-09 07:49 | XMS_ITS | Encounter Summary ---
Author Organization [facility] Address [address] [place] [address] Phone Care Team Providers Care Scrub Wheel Operator Name Role Phone Hilary Wynn MD Primary Care Provider [phone] Martinez Adams MD Unavailable [phone] Carlitos Madison MD PhD Unavailable Encounter Details Date Type Department Care Team (Late st Contact Info) Description 10/17/2020 Telephone [facility] [address] [facility] [address] [place] [address] [place] [address] Abril Chavarria Social History Tobacco Use Types Packs/Day Years Used Date Smoking Tobacco: Every Day Cigarettes Cigars Smokeless Tobacco: Never Alcohol Use Standard Drinks/Week Comments Yes 0 (1 standard drink = 0.6 oz pur e alcohol) occasional AUDIT-C Answer Date Recorded Q1: How often do you have a drink containing alc ohol? 2-3 times a week 09/19/2020 Q2: How many drinks containi ng alcohol do you have on a typical day when you are drinking? 1 or 2 09/19/2020 Q3: How often do you have si x or more drinks on one occasion? 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
--- OUTSIDE RECORDS SUMMARY | 2024-08-09 07:49 | XMS_ITS | Clinical Summary ---
Author Organization [facility] Address [address] [place] [address] Care Team Providers Care Economic History Teacher Name Role Phone Hilary Wynn MD Primary Care Provider [phone] Martinez Adams MD Unavailable [phone] Carlitos Madison MD PhD Unavailable Allergies Active Allergy Reactions Criticality Noted Date [...] (07/09/2021): Added automatically from request for surgery [id number] Sebaceous cyst 02/28/2021 Overview (02/28/2021): Added automatically from request for surgery [id number] Malignant melanoma of left u pper extremity including shoulder 09/19/2020 Overview (09/19/2020): Added automatically from request for surgery [id number] 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 09/16/2020 Overview (09/16/2020): Added automatically from request for surgery [id number] Iron deficiency anemia 03/20/2020 Assessment & Plan (03/20/2020 4:43 PM GEAR MACHINIST): Patient has high as iron deficiency anemia which seems to be corrected with oral iron. He has history of GI bleeding. No sign of bleeding at this time. Schedule colonoscopy for evaluation. No need for further evaluation the stone. 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 Endoscopic removal was very difficult and he was treated at [facility] with couple endoscopy procedures. No need for endoscopy at this time as long as there is no sign of melena. Resolved Problems Problem Noted Date Diagnosed Date Resolved Date Encounter for screening colonoscopy 03/07/2020 04/11/2021 Overview (03/07/2020): Added automatically from request for surgery [id number] Encounters Date Type Department Care Team Description 08/01/2024 Results Follow-Up [facility] Dermatology [address] [facility] [address] [place] [address] Carlitos Madison MD PhD 07/28/2024 9:15 AM CDT Office Visit [facility] Dermatology [address] [facility] [address] [place] [phone] Carlitos Madison MD PhD Seborrheic keratoses (Primary Dx); Multiple benign nevi; History of malignant melanoma; History of nonmelanoma skin cancer; Actinic keratosis; Neoplasm of unspecified behavior of bone, soft tissue, and skin 07/28/2024 Orders Only [facility] [address] [place] [address] Carlitos Madison MD PhD Neoplasm of unspecified behavior of bone, soft tissue, and skin 05/23/2024 7:55 AM GEAR MACHINIST - 05/23/2024 8:25 AM GEAR MACHINIST Surgery [address] [address] Kristofer Gonzalez MD COLON BIOPSY 05/23/2024 7:47 AM GEAR MACHINIST Anesthesia Event [address] [address] Donato Stubbs MD Williams, Calvin E., MD 05/23/2024 6:52 AM GEAR MACHINIST - 05/23/2024 9:25 AM GEAR MACHINIST Hospital Encounter [address] [address] Kristofer Gonzalez MD Family history of colon cancer in father; Personal history of colonic polyps; Encounter for screening colonoscopy; 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; History of colonic polyps Discharge Disposition: Discharge to home or self care from Last 3 Months Surgical History Surgery Date Site/Laterality Comments PROSTATECTOMY 05/07/2003 CHOLECYSTECTOMY 05/03/2003 - 05/02/2004 TOTAL HIP ARTHROPLASTY 05/03/2006 - 05/02/2007 UPPER GASTROINTESTINAL ENDOSCOPY BLADDER SURGERY 05/03/2017 - 06/02/2017 insertion of urethral bladder device COLONOSCOPY 02/21/2016 COLONOSCOPY 05/24/2020 US GUIDED BIOPSY LYMPH NODE SUPERFICIAL LEFT 02/27/2021 N/A JOINT REPLACEMENT 05/03/2003 - 05/02/2004 Right hip SPINE SURGERY back surgery -apr-2021 NECK MASS EXCISION Medical History Medical History Date Comments Kidney stone Hypertension Type 2 diabetes mellitus (HCC) Cancer (HCC) Prostate cancer GERD (gastroesophageal reflux disease) Melanoma (HCC) 2020 History of radiation therapy pro state Cataract COPD (chronic obstructive pu lmonary disease) (HCC) copd no inhalers Low iron 2015 on oral iron, be ing followed by primary Lipoma of neck Obesity Family History Medical History Relation Name Comments Diabetes Brother 1 Hypertension Brother 1 Diabetes Brother 2 Hypertension Brother 2 Lymphoma Brother 2 Other Father carcinoid tumpr Colon cancer Maternal Grandmother Dementia Mother Diabetes Mother Gout Mother Heart disease Mother Hypertension Mother Prostate cancer Mother's Brother Breast cancer Mother's Sister Anesthesia problems Neg Hx Relation Name Status Comments Brother 1 Brother 2 Father Carcinoid tumor sigmoid colon with mets to lymphnodes jaleel shunt for chylous ascites and blood clots. Maternal Grandmother Mother Mother's Brother Mother's Sister Social History Tobacco Use Types Packs/Day Years [...] on file Legal Sex Male 10:46 AM GEAR MACHINIST Gender Identity Not on file Sexual Orientation Not on file Obstetrics History Last Filed Vital Signs Vital Sign Reading Time Taken Comments Blood Pressure 134/68 05/23/2024 9:02 AM GEAR MACHINIST Pulse 73 05/23/2024 9:02 AM GEAR MACHINIST Temperature 36.9 C (98.5 F) 05/23/2024 9:02 AM GEAR MACHINIST Respiratory Rate 18 05/23/2024 9:02 AM GEAR MACHINIST Oxygen Saturation 96% 05/23/2024 9:02 AM GEAR MACHINIST Inhaled Oxygen Concentration - - Weight 99.8 kg (220 lb) 05/23/2024 7:16 AM GEAR MACHINIST Height 177.8 cm (5' 10 ) 05/23/2024 7:16 AM GEAR MACHINIST Body Mass Index 31.57 05/23/2024 7:16 AM GEAR MACHINIST Plan of Treatment Health Maintenance Due Date Last Done Comments Depression Screening 1950 Hepatitis C Screening 1950 Hepatitis B Screening 1969 Well Visit 65+ 01/02/2016 Covid-19 Vaccine (4 - 2023-2 5 season) 2024 01/28/2021, 06/25/2020, 06/04/2020 Influenza Vaccine (Season Ended) 2025 02/19/2021, 01/29/2020, 02/02/2019, Additional history exists Fall Risk Assessment 05/23/2025 05/23/2024 DTaP/Tdap/Td Vaccine (2 - Td or Tdap) 02/29/2028 02/28/2018 Colon Cancer Screening-Colonoscopy 05/23/2034 05/23/2024, 05/24/2020, 02/21/2016, Additional history exists Pneumococcal vaccine 65+ Completed 02/02/2019, 04/02 Zoster Vaccine Completed 10/06/2019, 05/05, 02/21/2013 Abdominal Aortic Aneurysm (A AA) Screen Completed 11/15/2022, 12/08/2016 Colon Cancer Screening-CT Colonography Discontinued 05/23/2024, 05/24/2020, 02/21/2016, Additional history exists Colon Cancer Screening-DNA Stool Discontinued 05/23/2024, 05/24/2020, 02/21/2016, Additional history exists Colon Cancer Screening-FIT Discontinued 05/23, 05/24/2020, 02/21/2016, Additional history exists Colon Cancer Screening-Sigmoidoscopy Discontinued 05/23/2024, 05/24/2020, 02/21/2016, Additional history exists Medical Devices Implanted Type Area Special Needs Librarian Device Identifier Shelf Expiration Date Model / Serial / Lot Hip Replacement Right: Hip Procedures Procedure Name Priority Date/Time Associated Diagnosis Comments SURGICAL PATHOLOGY Routine 07/28/2024 12:00 AM CDT Neoplasm of unspecified behavior of bone, soft tissue, and skin SURGICAL PATHOLOGY STAT 05/23/2024 2:11 PM GEAR MACHINIST Family history of colon cancer in father History of colonic polyps Encounter for screening colonoscopy 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 ESOPHAGOGASTRODUODENOSCOPY BIOPSY 05/23/2024 7:47 AM GEAR MACHINIST Family history of colon cancer in father Personal history of colonic polyps Encounter for screening colonoscopy 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 COLON BIOPSY 05/23/2024 7:47 AM GEAR MACHINIST Family history of colon cancer in father Personal history of colonic polyps Encounter for screening colonoscopy 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 POCT GLUCOSE DEVICE Routine 05/23/2024 7:43 AM GEAR MACHINIST EGD 05/23/2024 7:19 AM GEAR MACHINIST COLONOSCOPY 05/23/2024 7:[address] ABDOMEN PELVIS WO CONTRAST ED 4:35 PM CDT from Last 3 Months or Most Recently Relevant to Health Maintenance Results * Surgical pathology (07/28/2024 12:00 AM CDT) Tissue specimen (specimen) (Skin, shave biopsy) 07/28/2024 07/28/2024 12:56 PM CDT [facility] - 08/01/2024 2:48 PM CDT [facility] results best viewed via link to PDF [facility] [address], [address], [place] [address] [email or web address] Note to Patients: This report may contain [...] Submitting Physician Information: Carlitos Madison M.D. Dermatology [facility] [address] [facility], [address] [place] [address], DERMATOPATHOLOGY REPORT RESULTS DIAGNOSIS: SKIN, RIGHT MID [...] ICD-9 A; ZSD.1411 ZSD.407 Clerical Data A; 27103 The characteristics of special, immunohistochemical, and immunofluorescence stains and in-situ hybridization tests performed by the [facility] were deemed acceptable in ongoing quality control measures and in compliance with regulations drawn from the Clinical Laboratory Improvement Act vw6106 (CLIA '88). Control reactions for all stains performed were deemed adequate and appropriate by a pathologist prior to evaluation of patient tissue. Some diagnoses were rendered with the assistance of laboratory-developed tests utilizing analyte-specific reagents; the performance characteristic of these tests were determined by [facility] and are not cleared or approved by the US Food an Drug administration. Laboratory developed test may only be performed in a facility that is certified by the [facility] as a high-complexity laboratory under CLIA '88. These tests are used for clinical purposes and are not investigational. Carlitos Madison MD PhD LAB PATHOLOGY OR DERABLES Final Result [facility]OP[facility]Y CENTER [address] [place] [address] * Surgical pathology (05/23/2024 2:11 PM GEAR MACHINIST) Tissue specimen (specimen) (Gastric/Stomach biopsy) 05/23/2024 8:23 AM GEAR MACHINIST Tissue specimen (specimen) (Polyp(s), colon/colorectal, esophageal, gastric) 05/23/2024 8:24 AM GEAR MACHINIST Tissue specimen (specimen) (Polyp(s), colon/colorectal, esophageal, gastric) 05/23/2024 8:24 AM GEAR MACHINIST Narrative PATHOLOGY [facility] ([facility]) - 05/25/2024 3:13 PM GEAR MACHINIST EPIC results best viewed via link to PDF [facility] Department of Pathology [address] [place] [address] Note to Patients: This report may contain [...] Final Report Patient Name: ALEX PARKER Address: [address] [place] [address]- Gender: M : 1950 (Age: 74) Service: Gastro Location: [facility] Hospital #: [id number] Patient Type: [facility] Taken: 05/23/2024 Received: 05/23/2024 Accessioned: 05/23/2024 Reported: [...] submitted in three formalin containers labeled ALEX PARKER . A. The first container is labeled [...] mm. All in [facility]. [facility]. Kimberly Call., Radha./Carmita Rivera M.D. REPORT IMAGES AND SCANNED DOCUMENTS, IF INCLUDED, ONLY VIEWABLE IN PDF VERSION OF REPORT The performance characteristics of some immunohistochemical stains, fluorescence in-situ hybridization tests and immunophenotyping by flow cytometry cited in this report (if any) were determined by the Surgical Pathology Department at [facility] as part of an ongoing quality control program and in compliance with federally mandated [...] characteristics determined by the Surgical Pathology Department [facility]. It has not been cleared or approved by the U. S. Food and Drug Administration. Note for decalcified specimens: This assay has not been validated on decalcified tissues. Results should be interpreted with caution given the possibility of false negativity on decalcified specimens Kristofer Gonzalez MD LAB PATHOLOGY ORDERABLES F inal Result Performing Organization Address City/State/[facility] Co de Phone Number PATHOLOGY [address] [phone] * POCT glucose (05/23/2024 7:43 AM GEAR MACHINIST) Glucose, POC 132 70 - 199 mg/dL Blood 05/23/2024 7:43 AM GEAR MACHINIST 05/23/2024 7:43 AM GEAR MACHINIST Kristofer Gonzalez MD LAB POCT ORDERABLES - ESDRAS CE Final Result [facility] [address] [facility] Department [place] [address] * EGD (05/23/2024 7:19 AM GEAR MACHINIST) Anatomical Region Laterality Modality Other Narrative Procedure Note Kristofer Gonzalez MD - 05/23/2024 7:19 AM CST [facility] Patient Name: Alex Parker Procedure Date: 05/23/2024 7:19 AM Date of : 1950 Admit Type: Outpatient Age: 74 Gender: Male Attending MD: Kristofer Gonzalez M.D. Room: [facility] ENDOSCOPY ROOM 1 Note Status: Finalized [...] passed under direct vision. The Endoscope [id number] was introduced through the mouth, and advanced [...] 7:19 AM Procedure Code(s): --- Professional --- 43577, Esophagogastroduodenoscopy, flexible, transoral; with biopsy, single or multiple Diagnosis Code(s): --- Professional --- K22.70, 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 K31.89, Other diseases of stomach and duodenum K22.89, Other specified disease of esophagus K21.9, Gastro-esophageal reflux disease without esophagitis CPT copyright 2020 [employer]. All rights reserved. The codes documented in this report are preliminary and upon controller mechanic reviewmay be revised to meet current compliance requirements. Recognized by the [employer] for promoting quality in endoscopy us Kristofer Gonzalez MD ENDOSCOPY PROCEDURES Final Result * Colonoscopy (05/23/2024 7:18 AM GEAR MACHINIST) Anatomical Region Laterality Modality Other Narrative Procedure Note Kristofer Gonzalez MD - 05/23/2024 7:18 AM CST [facility] Patient Name: Alex Parker Procedure Date: 05/23/2024 7:18 AM Date of : 1950 Admit Type: Outpatient Age: 74 Gender: Male Attending MD: Kristofer Gonzalez M.D. Room: [facility] ENDOSCOPY ROOM 1 Note Status: Finalized [...] passed under direct vision. The Pediatric Colonoscope [id number] was introduced through the anus and advanced [...] 7:18 AM Procedure Code(s): --- Professional --- 83151, Colonoscopy, flexible; with biopsy, single or multiple Diagnosis Code(s): --- Professional --- Z80.0, Family history of malignant neoplasm of digestive organs Z86.010, Personal history of colonic polyps K64.8, Other hemorrhoids D12.5, Benign neoplasm of sigmoid colon D12.4, Benign neoplasm of descending colon D12.8, Benign neoplasm of rectum CPT copyright 2020 [employer]. All rights reserved. The codes documented in this report are preliminary and upon controller mechanic reviewmay be revised to meet current compliance requirements. Recognized by the [employer] for promoting quality in endoscopy us Kristofer Gonzalez MD ENDOSCOPY PROCEDURES Final Result [...] Electronically signed by Agustín Knox M.D. KT: KT Report ID: [id number] Reading Location: [id number] Procedure Note Agustín Knox MD - 11/15/2022 [...] Agustín Knox M.D. KT: SKY Report ID: [id number] Reading Location: [place] [address] Zhane Perez MD IMG CT PROCEDURES Final R esult from Last 3 Months or Most Recently Relevant to Health Maintenance Insurance MEDICARE ADVANTAGE T MEDICARE T MEDICARE Advance Directives For more information, please contact: [phone] Documents on File Type Date Recorded Patient Bag Maker Expl anation ADVANCE DIRECTIVE 03/05/2021 11:17 AM Aysha r of Rigging Hel[employer]-Medical * Full Code (Latest Code Status on [...] 7:12 AM 05/24/2020 1:01 PM Care Teams Economic History Teacher Relationship Specialty Start Date End Date Hilary Wynn MD [address] [place] [address] PCP - General 08/08/16 Martinez Adams MD [address] [place] [address] Consulting Physician Otolaryngology 09/01/21 Carlitos Madison MD PhD [address] [place] [address] Sustainability Project Manager Dermatology 04/13/22
--- OUTSIDE RECORDS SUMMARY | 2024-08-09 07:49 | XMS_ITS | Encounter Summary ---
Author Organization [facility] Address [address] [place] [address] Phone Care Team Providers Care Machine Operator Packaging Name Role Phone Hilary Wynn MD Primary Care Provider [phone] Martinez Adams MD Unavailable [phone] Carlitos Madison MD PhD Unavailable Encounter Details Date Type Department Care Team (Late st Contact Info) Description 08/01/2024 Results Follow-Up [facility] Dermatology [address] [facility] [address] [place] [address] Carlitos Madison MD PhD [address] [address] Social History Tobacco Use Types Packs/Day Years Used Date Smoking Tobacco: Former Cigars Smokeless Tobacco: Former Snuff, Chew Quit: 2000 Alcohol Use Standard Drinks/Week Comments Yes 0 [...] on file Legal Sex Male 10:46 AM PATIENT CARE TECHNICIAN Gender Identity Not on file Sexual Orientation Not on file documented as of this encounter Plan of Treatment Not on file documented as of this encounter Visit Diagnoses Not on filedocumented in this encounter Care Teams Machine Operator Packaging Relationship Specialty Start Date End Date Hilary Wynn MD [address] [place] [address] PCP - General 08/08/16 Martinez Adams MD [address] [place] [address] Consulting Physician Otolaryngology 09/01/21 Carlitos Madison MD PhD [address] [place] [address] Correction Officer Penitentiary Dermatology 04/13/22 documented as of this encounter
--- OUTSIDE RECORDS SUMMARY | 2024-08-09 07:49 | XMS_ITS | Encounter Summary ---
Author Organization [facility] Address [address] [facility] [address] [place] [address] Care Team Providers Care Insurance Claim Approver Name Role Phone Hilary Wynn MD Primary Care Provider [phone] Martinez Adams MD Unavailable [phone] Carlitos Madison MD PhD Unavailable Encounter Details Date Type Department Care Team (Late st Contact Info) Description 01/05/2013 Orders Only [facility] Information Management [address] [place] [address] Scanning, Provider Social History Tobacco Use Types Packs/Day Years Used Date Smoking Tobacco: Never Assessed Sex and Gender Information Value Date Recorded Sex Assigned at Not on file Legal Sex Male 10:46 AM MIX MAKER Gender Identity Not on file Sexual Orientation Not on file documented as of this encounter Plan of Treatment Not on file documented as of this encounter Procedures Procedure Name Priority Date/Time Associated Diagnosis Comments GI - RESULT 01/05/2013 SCAN - PATHOLOGY 01/05/2013 documented in this encounter Results * SCAN - PATHOLOGY (01/05/2013) us Provider Scanning Final Result * GI - RESULT (01/05/2013) Anatomical Region Laterality Modality Other us Provider Scanning Final Result documented in this encounter Visit Diagnoses Not on filedocumented in this encounter Care Teams Insurance Claim Approver Relationship Specialty Start Date End Date Hilary Wynn MD [address] [place] [address] PCP - General 08/08/16 Martinez Adams MD [address] [place] [address] Consulting Physician Otolaryngology 09/01/21 Carlitos Madison MD PhD [address] [place] [address] Commercial Management Accountant Dermatology 04/13/22 documented as of this encounter
--- OUTSIDE RECORDS SUMMARY | 2024-08-09 07:49 | XMS_ITS | Encounter Summary ---
Author Organization [facility] Address [address] [facility] [address] [place] [address] Care Team Providers Care Credit Correspondence Clerk Name Role Phone Hilray Wynn MD Primary Care Provider + [phone] Martinez Adams MD Unavailable [phone] Carlitos Madison MD PhD Unavailable Encounter Details Date Type Department Care Team ([facility] Contact Info) Description 11/18/2011 Orders Only [facility] Health Information Management [address] [place] [address] Scanning, Provider Social History Tobacco Use Types Packs/Day Years Used Date Smoking Tobacco: Never Assessed Sex and Gender Information Value Date Recorded Sex Assigned at Not on file Legal Sex Male 10:46 AM COLOR MIXER Gender Identity Not on file Sexual Orientation Not on file documented as of this encounter Plan of Treatment Not on file documented as of this encounter Procedures Procedure Name Priority Date/Time Associated Diagnosis Comments GI - RESULT 11/18/2011 documented in this encounter Results * GI - RESULT (11/18/2011) Anatomical Region Laterality Modality Other us Provider Scanning Final Result documented in this encounter Visit Diagnoses Not on filedocumented in this encounter Care Teams Credit Correspondence Clerk Relationship Specialty Start Date End Date Hilary Wynn MD [address] [place] [address] PCP - General 08/08/16 Martinez Adams MD [address] [place] [address] Consulting Physician Otolaryngology 09/01/21 Carlitos Madison MD PhD [address] [place] [address] Skimmer Dermatology 04/13/22 documented as of this encounter
--- OUTSIDE RECORDS SUMMARY | 2024-08-09 07:49 | XMS_ITS | Clinical Summary ---
Author Organization [facility] Address [address] [place] [address] Phone Care Team Providers Care Computer Operations Supervisor Name Role Phone Hilary Wynn MD Primary Care Provider [phone] Chadd Knight MD Unavailable Allergies Active Allergy Reactions Criticality Noted Date Comments Wound Dressing Adhesive Rash Medium 03/20/2021 Medications LOSARTAN POTASSIUM PO Take 100 mg by mouth daily. Active POTASSIUM CHLORIDE PO Take by mouth. Act ignacio OXYBUTYNIN CHLORIDE PO Take by mouth. Act ignacio Famotidine (PEPCID PO) Take by mouth. Act ignacio ondansetron (ZOFRAN) 4 MG Tablet Take 1 Tab by mouth every 8 hours as needed for Nausea. 10 Tab 7 Active Additional Information Patient not taking.Reported on 08/05/2023 HYDROcodone-tariq taminophen (NORCO) 5-325 MG Tablet Take 1-2 Tabs by mouth every 4 hours as needed for Pain. 10 Tab 7 Active Additional Information Patient not taking.Reported on 08/05/2023 tamsulosin (FLOMAX) 0.4 MG Capsule Take 1 Cap by mouth daily. 10 Cap 7 Active Trulicity 4.5 MG/0.5ML Solution Pen-injector 4.5 mg by Subcutaneous route. 4 Active potassium citrate (UROCIT K) 10 MEQ (1080 MG) Tablet Controlled Release Take 10 mEq by mouth. 0 Active pioglitazone (ACTOS) 15 MG Tablet Take 15 mg by mouth. Active ferrous sulfate 325 (65 Fe) MG Tablet Take 325 mg by mouth daily. Active pantoprazole (PROTONIX) 40 MG Tablet Delayed Response Take 40 mg by mouth daily. Active hydroCHLOROthia zide 12.5 MG Tablet Take 12.5 mg by mouth daily. Active nebivolol (BYSTOLIC) 5 MG Tablet Take 4.5 mg by mouth once a week. Active tamsulosin (FLOMAX) 0.4 MG Capsule Take 1 Capsule by mouth daily. 30 Capsule 5 4 Active Social History Tobacco Use Types Packs/Day Years Used Date Smoking Tobacco: Every Day Cigarettes Smokeless Tobacco: Never Sex and Gender Information Value Date Recorded Sex Assigned at Not on file Legal Sex Male 2:56 PM CDT Gender Identity Not on file Sexual Orientation Not on file Last Filed Vital Signs Vital Sign Reading Time Taken Comments Blood Pressure 134/80 08/05/2023 10:03 AM CDT Pulse 82 08/05/2023 10:03 AM CDT Temperature 37.3 C (99.1 F) 12/08/2016 5:00 PM CDT Respiratory Rate 20 08/05/2023 10:03 AM CDT Oxygen Saturation 99% 08/05/2023 10:03 AM CDT Inhaled Oxygen Concentration - - Weight 107.5 kg (237 lb) 08/05/2023 10:03 AM CDT Height 177.8 cm (5' 10 ) 08/05/2023 10:03 AM CDT Body Mass Index 34.01 08/05/2023 10:03 AM CDT Plan of Treatment Health Maintenance Due Date Last Done Comments Hepatitis C Virus (HCV) Screening 1950 Cologuard 2001 Immunochemical Fecal Occult Blood 2001 AAA Screening Ultrasound 01/02/2016 Influenza Immunization (#1) 01/02/202401/31, 02/17/2022, 02/19/2021, Additional history exists SARS-COV-2 Immunization ( season) 2024 01/27/2022, 01/28/2021, 06/25/2020, Additional history exists Respiratory Syncytial Virus (RSV) Immunization (Adult) (1 - 1-dose 75+ series) 2026 Colonoscopy 05/24/2030 05/24/2020 Colorectal Cancer Screening 05/24/2030 05/24/2020 DTaP/Tdap/Td Immunization Discontinued 02/28/2018 TdaP Immunization Completed 02/28/2018 Pneumococcal Immunization (50+ years) Completed 02/02/2019, 04/20/2018 Pneumococcal Immunization Combined Discontinued 02/02/2019, 04/20/2018 Zoster Immunization Completed 10/06/2019, 06/02/2019, 02/21/2013 Hepatitis B Immunization Aged Out No longer eligible based on patient's age to complete this topic Meningococcal Immunization (ACWY) Aged Out No longer eligible based on patient's age to complete this topic Rotavirus Immunization Aged Out No lo nger eligible based on patient's age to complete this topic Insurance MEDICARE C AETNA Care Teams Computer Operations Supervisor Relationship Specialty Start Date End Date Hilary Wynn MD [address] [place], [place] [id number] PCP - General Internal Medicine 12/08/16 Chadd Knight MD [address] [address] Consulting Physician Urology 08/05/23
--- OUTSIDE RECORDS SUMMARY | 2024-08-09 07:49 | XMS_ITS | Encounter Summary ---
Author Organization [facility] Address [address] [facility] [address] [place] [address] Care Team Providers Care Player Piano Technician Name Role Phone Hilary Wynn MD Primary Care Provider + [phone] Martinez Adams MD Unavailable [phone] Carlitos Madison MD PhD Unavailable Encounter Details Date Type Department Care Team ([facility] Contact Info) Description 02/16/2013 Orders Only [facility] Health Information Management [address] [place] [address] Scanning, Provider Social History Tobacco Use Types Packs/Day Years Used Date Smoking Tobacco: Never Assessed Sex and Gender Information Value Date Recorded Sex Assigned at Not on file 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 Gender Identity Not on file Sexual Orientation Not on file documented as of this encounter Plan of Treatment Not on file documented as of this encounter Procedures Procedure Name Priority Date/Time Associated Diagnosis Comments GI - RESULT 02/16/2013 documented in this encounter Results * GI - RESULT (02/16/2013) Anatomical Region Laterality Modality Other us Provider Scanning Final Result documented in this encounter Visit Diagnoses Not on filedocumented in this encounter Care Teams Player Piano Technician Relationship Specialty Start Date End Date Hilary Wynn MD [address] [place] [address] PCP - General 08/08/16 Martinez Adams MD [address] [place] [address] Consulting Physician Otolaryngology 09/01/21 Carlitos Madison MD PhD [address] [place] [address] Train Operations Manager Dermatology 04/13/22 documented as of this encounter
--- OUTSIDE RECORDS SUMMARY | 2024-08-09 07:49 | XMS_ITS | Clinical Summary ---
Author Organization [facility] Address [address] [place] [address] Care Team Providers Care Nuclear Engineer Name Role Phone Hilary Wynn MD Primary Care Provider [phone] Allergies No known active allergies Medications potassium citrate CR 10 MEQ (1080 MG) tabletIndicati ons:Prevention of Recurring Kidney Stone Take 10 mEq by mouth 2 (two) times a day. Indications: Prevention of Repeat Kidney Stones Active ferrous sulfate, 65 mg elemental, 325 (65 FE) MG tabletIndicati ons:Anemia Take 325 mg by mouth daily with breakfast. Indications: Anemia Activ e pantoprazole EC 40 MG tabletIndicati ons:Gastroesop hageal Reflux Disease Take 40 mg by mouth 2 (two) times a day. Indications: Gastroesophageal Reflux Disease Active losartan 100 MG tabletIndicati ons:Hypertensi on Take 100 mg by mouth daily. Indications: High Blood Pressure Disorder Active pioglitazone 15 MG tabletIndicati ons:Diabetes Mellitus Take 15 mg by mouth every evening. Indications: Diabetes Active hydroCHLOROthi azide 12.5 MG capsuleIndicat ions:Hypertens ion Take 12.5 mg by mouth every morning. Indications: High Blood Pressure Disorder Active Active Problems No known active problems Family History Medical History Relation Comments Cancer Father Diabetes Father Arthritis Mother Dementia Mother Diabetes Mother Heart Disease Mother Hypertension Mother gout Mother Relation Status Comments Father (Age 68) Mother Alive Social History Tobacco Use Types Packs/Day Years Used Date Smoking Tobacco: Every Day Cigars Smokeless Tobacco: Never Comments:2-3/cigars daily Alcohol Use Standard Drinks/Week Comments Yes 0 (1 standard drink = 0.6 oz pur e alcohol) socially Sex and Gender Information Value Date Recorded Sex Assigned at Not on file Legal Sex Male 4:45 PM CDT Gender Identity Not on file Sexual Orientation Not on file Last Filed Vital Signs Vital Sign Reading Time Taken Comments Blood Pressure 147/92 01/02/2020 10:24 AM CDT Pulse 72 01/02/2020 10:24 AM CDT Temperature 36.6 C (97.8 F) 01/02/2020 10:14 AM CDT Respiratory Rate 16 01/02/2020 10:24 AM CDT Oxygen Saturation 97% 01/02/2020 10:24 AM CDT Inhaled Oxygen Concentration - - Weight 104.3 kg (230 lb) 12/26/2019 12:57 PM CDT Height 177.8 cm (5' 10 ) 12/26/2019 12:57 PM CDT Body Mass Index 33 12/26/2019 12:57 PM CDT Plan of Treatment Health Maintenance Due Date Last Done Comments Colorectal Cancer Screening Colonoscopy (10 Years) 1950 Hepatitis C 1969 DTaP, Tdap and Td Vaccines ( 1 - Tdap) 1970 Annual Medicare Wellness Visit 01/02/2016 Pneumococcal Vaccine: 65+ Years (2 of 2 - PPSV23 or PCV20) 03/30/2019 02/02/2019 COVID-19 Vaccine ( - 2023-2 5 season) 2024 RSV Immunization or 60+ Years (1 - 1-dose 75+ series) 2026 Zoster Vaccines Completed 10/06/2019, 06/02/2019, 02/21/2013 Meningococcal B Vaccine Aged Out No l onger eligible based on patient's age to complete this topic Meningococcal Vaccine Aged Out No viktoria brooks eligible based on patient's age to complete this topic RSV Immunizations Under 20 Months Aged Out No longer eligible b ased on patient's age to complete this topic Medical Devices Implanted Type Area Glass Bead Maker Device Identifier Shelf Expiration Date Model / Serial / Lot Iol Kyle Sn60wf - [id number] Implanted:Qty: 1 on 01/02/2020 by Krishna Elizalde MD at [facility] Lens Left: Eye K[employer] 06/12/2024 [id number] / [id number] / N/A Description:Implant verified by MD Insurance [facility] MEDICARE Care Teams Nuclear Engineer Relationship Specialty Start Date End Date Hilary Wynn MD [address] [place] [address] PCP - General INTERNAL MEDICINE 12/29/19
[2024-08-09 08:17] LABS: Hemoglobin 15.6 g/dL (12.4-15.3); Mean Corpuscular HGB Conc 31.8 g/dL (32-36); Mean Corpuscular Hemoglobin 30.8 pg (27.0-31.0); Mean Corpuscular Volume 96.8 fL (78.0-102.0); Mean Platelet Volume 8.9 fl (8.7-11.0); Platelet Count Result 251 K/mm3 (150-420); Red Blood Count 5.06 M/mm3 (4.70-6.10); Red Cell Distribution Width 13.4 % (11.6-14.4); White Blood Count 5.9 K/mm3 (4.8-10.8)
[2024-08-09 08:19] LABS: Add Urine Microscopic? YES; Appearance Urine Sl Cloudy (Clear); Bilirubin Urine Negative (Negative); Blood Urine 1+ (Negative); Color Urine Yellow (Yellow); Glucose Urine UA Negative (Negative); Ketones Urine Negative (Negative); Leukocyte Esterase Ur 1+ (Negative); Nitrate Urine Positive (Negative); Protein Urine Trace (Negative); Specific Grav Ur 1.025 (1.010-1.020); Urobilinogen Urine 0.2 mg/dL (0.2-1.0); pH Urine 5.5 (5.0-8.0)
[2024-08-09 08:22] LABS: Bacteria Urine 1+ /hpf; WBC Urine 31-50 /hpf (0-3)
[2024-08-09 08:26] LABS: Creatinine Urine 307.77 mg/dL (40-278); Microalbumin Urine Random 40.1 mg/L
[2024-08-09 08:40] LABS: Hemoglobin A1C 6.1 % (<5.7)
[2024-08-09 08:57] LABS: Alanine Aminotransferase 33 U/L (16-63); Albumin Level 3.4 g/dL (3.4-5.0); Alkaline Phosphatase 95 U/L (46-116); Anion Gap 6 mmol/L (4-12); Aspartate Amino Transferase 17 U/L (15-37); Bilirubin,Total 0.3 mg/dL (0.00-1.00); Blood Urea Nitrogen 18 mg/dL (7-18); Calcium 8.9 mg/dL (8.5-10.1); Carbon Dioxide 33 mmol/L (21-32); Chloride 105 mmol/L (98-108); Cholesterol 135 mg/dL (0-200); Estimated Glomerular Filt Rate 60; Glucose 102 mg/dL (70-99); HDL Direct 37 mg/dL (40-60); LDL Cholesterol Calculated 57 mg/dL (<130); Osmolality Calculated 299 mOsm/kg (285-295); Potassium 4.1 mmol/L (3.5-5.1); Sodium 144 mmol/L (136-145); Total Protein 6.8 g/dL (6.4-8.2); Triglycerides 207 mg/dL (0-150)
== END 2024-08-09 07:46 | disposition home or self-care (01) ==
LOC: CHSLAB 07:47
PROVIDERS: PCP Internal Medicine; Visit Provider Internal Medicine
DX: R53.82 Chronic fatigue, unspecified (principal); I10 Essential (primary) hypertension; E78.2 Mixed hyperlipidemia; E11.9 Type 2 diabetes mellitus without complications
CPT/HCPCS: 36415; 80053; 80061; 81001; 82043; 83036; 85027

== ENCOUNTER 2024-08-23 08:16 | Outpatient (CLI) | payer MEDICARE, SELFPAY ==
--- NOTE | ~2024-08-23 | XR_ITS ---
AP lateral views of the bilateral hips Clinical history: Pain Findings: No acute fracture or dislocation is seen. Left hip joint is intact. 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 Soft tissues are unremarkable. Impression: No acute abnormality. Right hip arthroplasty. Reviewed, dictated and finalized at location . Impression: No acute abnormality. Right hip arthroplasty.
--- OUTSIDE RECORDS SUMMARY | 2024-08-23 08:35 | XMS_ITS | Encounter Summary ---
Author Organization [facility] Address [address] [facility] [address] [place] [address] Care Team Providers Care Diesel Trailer Mechanic Name Role Phone Hilary Wynn MD Primary Care Provider + [phone] Martinez Adams MD Unavailable [phone] Carlitos Madison MD PhD Unavailable Encounter Details Date Type Department Care Team ([facility] Contact Info) Description 02/16/2013 Orders Only [facility] Health Information Management [address] [place] [address] Scanning, Provider Social History Tobacco Use Types Packs/Day Years Used Date Smoking Tobacco: Never Assessed Sex and Gender Information Value Date Recorded Sex Assigned at Not on file 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
--- OUTSIDE RECORDS SUMMARY | 2024-08-23 08:35 | XMS_ITS | Encounter Summary ---
Author Organization [facility] Address [address] [facility] [address] [place] [address] Care Team Providers Care Room Service Food Server Name Role Phone Hilary Wynn MD Primary Care Provider + [phone] Martinez Adams MD Unavailable [phone] Carlitos Madison MD PhD Unavailable Encounter Details Date Type Department Care Team ([facility] Contact Info) Description 02/15/2013 Orders Only [facility] Health Information Management [address] [place] [address] Scanning, Provider Social History Tobacco Use Types Packs/Day Years Used Date Smoking Tobacco: Never Assessed Sex and Gender Information Value Date Recorded Sex Assigned at Not on file 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
--- OUTSIDE RECORDS SUMMARY | 2024-08-23 08:35 | XMS_ITS | Encounter Summary ---
Author Organization [facility] Address [address] [place] [address] Phone Care Team Providers Care Mine Technician Name Role Phone Hilary Wynn MD Primary Care Provider [phone] Martinez Adams MD Unavailable [phone] Carlitos Madison MD PhD Unavailable Encounter Details Date Type Department Care Team (Late st Contact Info) Description 10/17/2020 Telephone [facility] Surgery [address] [facility] 5[address] [place] [address] [place] [address] Abril Chavarria Social History Tobacco [...] on file 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
--- OUTSIDE RECORDS SUMMARY | 2024-08-23 08:35 | XMS_ITS | Encounter Summary ---
Author Organization [facility] Address [address] [facility] [address] [place] [address] Care Team Providers Care Musical Therapist Name Role Phone Hilary Wynn MD Primary Care Provider + [phone] Martinez Adams MD Unavailable [phone] Carlitos Madison MD PhD Unavailable Encounter Details Date Type Department Care Team (Late st Contact Info) Description 01/05/2013 Orders Only [facility] Health Information Management [address] [place] [address] Scanning, Provider Social History Tobacco Use Types Packs/Day Years Used Date Smoking Tobacco: Never Assessed Sex and Gender Information Value Date Recorded Sex Assigned at Not on file 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
--- OUTSIDE RECORDS SUMMARY | 2024-08-23 08:36 | XMS_ITS | Encounter Summary ---
Author Organization [facility] Address [address] [facility] [address] [place] [address] Care Team Providers Care Dye Can Operator Name Role Phone Hilary Wynn MD Primary Care Provider + [phone] Martinez Adams MD Unavailable [phone] Carlitos Madison MD PhD Unavailable Encounter Details Date Type Department Care Team ([facility] Contact Info) Description 11/18/2011 Orders Only [facility] [place] Information Management [address] [place] [address] Scanning, Provider Social History Tobacco Use Types Packs/Day Years Used Date Smoking Tobacco: Never Assessed Sex and Gender Information Value Date Recorded Sex Assigned at Not on file 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
--- OUTSIDE RECORDS SUMMARY | 2024-08-23 08:36 | XMS_ITS | Clinical Summary ---
Author Organization [facility] Address [address] [place] [address] Care Team Providers Care Clarifier Name Role Phone Hilary Wynn MD Primary Care Provider [phone] Allergies No known active allergies Medications potassium [...] Annual Medicare Wellness Visit 01/02/2016 Pneumococcal Vaccine: 50+ Years (2 of 2 - PPSV23) 03/30/2019 02/02/2019 COVID-19 Vaccine (1 - 2023-2 5 season) 2024 RSV Immunization [...] this topic Medical Devices Implanted Type Area Realtime Reporter Device Identifier Shelf Expiration Date Model / Serial / Lot Iol Kyle Sn60wf - [id number] Implanted:Qty: 1 on 01/02/2020 by Krishna Elizalde MD at [facility] Lens Left: Eye KYLE - [employer]GICAL DIV 06/12/2024 [id number] / [id number] / N/A Description:Implant verified by MD Insurance [facility] MEDICARE Care Teams Clarifier Relationship Specialty Start Date End Date Hilary Wynn MD [address] [place] [address] PCP - General INTERNAL MEDICINE 12/29/19
--- OUTSIDE RECORDS SUMMARY | 2024-08-23 08:36 | XMS_ITS | Clinical Summary ---
Author Organization [facility] Address [address] [place] [address] Phone Care Team Providers Care Membership Secretary Name Role Phone Hilary Wynn MD Primary Care Provider [phone] Chadd Knight MD Unavailable Allergies Active Allergy [...] topic Insurance MEDICARE C AETNA Care Teams Membership Secretary Relationship Specialty Start Date End Date Hilary Wynn MD [address] [place], [place] [phone] PCP - General Internal Medicine 12/08/16 Chadd Knight MD [address] [address] Consulting Physician Urology 08/05/23
--- OUTSIDE RECORDS SUMMARY | 2024-08-23 08:36 | XMS_ITS | Encounter Summary ---
Author Organization [facility] Address [address] [place] [address] Phone Care Team Providers Care Industrial Sales Engineer Name Role Phone Hilary Wynn MD Primary Care Provider [phone] Martinez Adams MD Unavailable [phone] Carlitos Madison MD PhD Unavailable Encounter Details Date Type Department Care Team (Late st Contact Info) Description 08/01/2024 Results Follow-Up [facility] Dermatology [address] [facility] [address] [place] [address] Carlitos Madison MD PhD [address] [address] Social History Tobacco Use Types [...] on file 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
--- OUTSIDE RECORDS SUMMARY | 2024-08-23 08:36 | XMS_ITS | Referral Summary ---
Author Organization [facility] Address [address] [place] [address] Care Team Providers Care Acoustical Logging Engineer Name Role Phone Hilary Wynn MD Primary Care Provider [phone] Martinez Adams MD Unavailable [phone] Carlitos Madison MD PhD Unavailable Encounters Date Type Department Care Team Description 08/01/2024 Results Follow-Up [facility] Dermatology [address] [place] [address] Carlitos Madison MD PhD 07/28/2024 Orders Only [facility] [address] [place] [address] Carlitos Madison MD PhD Neoplasm of unspecified behavior of bone, soft tissue, and skin 07/28/2024 9:15 AM CDT Office Visit [facility] D[facility]atology [address] [facility] [address] [place] [address] Carlitos Madison MD PhD Seborrheic keratoses (Primary Dx); Multiple benign nevi; History of malignant melanoma; History of nonmelanoma skin cancer; Actinic keratosis; Neoplasm of unspecified behavior of bone, soft tissue, and skin from Last 3 Months Allergies Active Allergy [...] (07/09/2021): Added automatically from request for surgery [id number] Sebaceous cyst 02/28/2021 Overview (02/28/2021): Added automatically from request for surgery [id number] Malignant melanoma of left u pper extremity including shoulder 09/19/2020 Overview (09/19/2020): Added automatically from request for surgery [id number] 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 He has history of GI bleeding. No sign of bleeding at this time. Schedule colonoscopy for evaluation. No need for further evaluation the stone. 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 Endoscopic removal was very difficult and he was treated at [facility] with couple endoscopy procedures. No need for endoscopy at this time as long as there is no sign of melena. Resolved Problems Problem Noted Date Diagnosed Date Resolved Date Encounter for screening colonoscopy 03/07/2020 04/11/2021 Overview (03/07/2020): Added automatically from request for surgery [id number] Social History Tobacco Use Types Packs/Day Years [...] on file Legal Sex Male 10:46 AM SENIOR ESCROW OFFICER Gender Identity Not on file Sexual Orientation Not on file Last Filed Vital Signs Vital Sign Reading Time Taken Comments Blood Pressure 134/68 05/23/2024 9:02 AM SENIOR ESCROW OFFICER Pulse 73 05/23/2024 9:02 AM SENIOR ESCROW OFFICER Temperature 36.9 C (98.5 F) 05/23/2024 9:02 AM SENIOR ESCROW OFFICER Respiratory Rate 18 05/23/2024 9:02 AM SENIOR ESCROW OFFICER Oxygen Saturation 96% 05/23/2024 9:02 AM SENIOR ESCROW OFFICER Inhaled Oxygen Concentration - - Weight 99.8 kg (220 lb) 05/23/2024 7:16 AM SENIOR ESCROW OFFICER Height 177.8 cm (5' 10 ) 05/23/2024 7:16 AM SENIOR ESCROW OFFICER Body Mass Index 31.57 05/23/2024 7:16 AM SENIOR ESCROW OFFICER Plan of Treatment Not on file Medical Devices Implanted Type Area Behavioral Psychologist Device Identifier Shelf Expiration Date Model / Serial / Lot Hip Replacement Right: Hip Procedures Procedure Name Priority Date/Time Associated Diagnosis Comments SURGICAL PATHOLOGY Routine 07/28/2024 12 :00 AM CDT Neoplasm of unspecified behavior of bone, soft tissue, and skin COLONOSCOPY 05/23/2024 7:18 AM SENIOR ESCROW OFFICER CT ABDOMEN PELVIS WO CONTRAST ED 11/15/2022 4:35 PM CDT from Last 3 Months or Most Recently Relevant to Health Maintenance Results * Surgical pathology (07/28/2024 12:00 AM CDT) Tissue specimen (specimen) (Skin, shave biopsy) 07/28/2024 07/28/2024 12:56 PM CDT [facility] - 08/01/2024 2:48 PM CDT [facility] results best viewed via link to PDF [facility] [address] [place] [address], [address], [place] [address] [email or web address] Note to Patients: This report may contain [...] Submitting Physician Information: Carlitos Madison M.D. Dermatology [facility] [address], [address] [place] [address] [address] [place] [address], DERMATOPATHOLOGY REPORT RESULTS DIAGNOSIS: SKIN, RIGHT MID [...] ICD-9 A; ZSD.1411 ZSD.407 Clerical Data A; 01530 The characteristics of special, immunohistochemical, and immunofluorescence stains and in-situ hybridization tests performed by the [facility] were deemed acceptable in ongoing senior quality engineer measures and in compliance with regulations drawn from the Clinical Laboratory Improvement Act kt8060 (CLIA '88). Control reactions for all stains performed were deemed adequate and appropriate by a pathologist prior to evaluation of patient tissue. Some diagnoses were rendered with the assistance of laboratory-developed tests utilizing analyte-specific reagents; the performance characteristic of these tests were determined by [facility] and are not cleared or approved by the US Food an Drug administration. Laboratory developed test may only be performed in a facility that is certified by the [facility] as a high-complexity laboratory under CLIA '88. These tests are used for clinical purposes and are not investigational. Carlitos Madison MD PhD LAB PATHOLOGY OR DERABLES Final Result [facility] [address] [place] [address] * Colonoscopy (05/23/2024 7:18 AM SENIOR ESCROW OFFICER) Anatomical Region Laterality Modality Other Narrative Procedure Note Kristofer Gonzalez MD - 05/23/2024 7:18 AM CST [facility] Patient Name: Alex Parker Procedure Date: 05/23/2024 7:18 AM Date of : 1950 Admit Type: Outpatient Age: 74 Gender: Male Attending MD: Kristofer oGnzalez M.D. Room: [facility] ENDOSCOPY ROOM 1 Note Status: Finalized Patient [...] passed under direct vision. The Pediatric Colonoscope [id number] was introduced through the anus and advanced [...] 7:18 AM Procedure Code(s): --- Professional --- 96308, Colonoscopy, flexible; with biopsy, single or multiple Diagnosis Code(s): --- Professional --- Z80.0, Family history of malignant neoplasm of digestive organs Z86.010, Personal history of colonic polyps K64.8, Other hemorrhoids D12.5, Benign neoplasm of sigmoid colon D12.4, Benign neoplasm of descending colon D12.8, Benign neoplasm of rectum CPT copyright 2020 [employer]. All rights reserved. The codes documented in this report are preliminary and upon machine washer reviewmay be revised to meet current compliance requirements. Recognized by the [employer] for Gastrointestinal Endoscopy for promoting quality [...] Agustín Knox M.D. KT: SKY Report ID: [id number] Reading Location: [id number] Procedure Note Agustín Knox MD - 11/15/2022 [...] Agustín Knox M.D. KT: SKY Report ID: [id number] Reading Location: [place] [address] Zhane Perez MD IMG CT PROCEDURES Final R esult from Last 3 Months or Most Recently Relevant to Health Maintenance Insurance [facility] MEDICARE [facility] Address: [address] [address] [place] [address] T MEDICARE T MEDICARE Advance Directives For more information, please contact: [phone] Documents on File Type Date Recorded Patient Machine Maintenance Servicer Expl anation ADVANCE DIRECTIVE 03/05/2021 11:17 AM Aysha torres of Rail Flaw Detector Operator-Medical * Full Code (Latest Code Status on [...] 7:12 AM 05/24/2020 1:01 PM Care Teams Acoustical Logging Engineer Relationship Specialty Start Date End Date Hilary Wynn MD [address] [place] [address] PCP - General 08/08/16 Martinez Adams MD [address] [place] [address] Consulting Physician Otolaryngology 09/01/21 Carlitos Madison MD PhD [address] [place] [address] Telesales Agent Dermatology 04/13/22
--- OUTSIDE RECORDS SUMMARY | 2024-08-23 08:36 | XMS_ITS | Clinical Summary ---
Author Organization [facility] Address [address] [place] [address] Care Team Providers Care Used Car Renovator Name Role Phone Hilary Wynn MD Primary Care Provider [phone] Martinez Adams MD Unavailable [phone] Carlitos Madison MD PhD Unavailable Allergies Active [...] (07/09/2021): Added automatically from request for surgery [id number] Sebaceous cyst 02/28/2021 Overview (02/28/2021): Added automatically from request for surgery [id number] Malignant melanoma of left u pper extremity including shoulder 09/19/2020 Overview (09/19/2020): Added automatically from request for surgery [id number] 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 09/16/2020 Overview (09/16/2020): Added automatically from request for surgery [id number] Iron deficiency anemia 03/20/2020 Assessment & Plan (03/20/2020 4:43 PM CRIMINAL INTELLIGENCE SPECIALIST): Patient has high as iron deficiency anemia which seems to be corrected with oral iron. He has history of GI bleeding. No sign of bleeding at this time. Schedule colonoscopy for evaluation. No need for further evaluation the stone. 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 Endoscopic removal was very difficult and he was treated at [facility] with couple endoscopy procedures. No need for endoscopy at this time as long as there is no sign of melena. Resolved Problems Problem Noted Date Diagnosed Date Resolved Date Encounter for screening colonoscopy 03/07/2020 04/11/2021 Overview (03/07/2020): Added automatically from request for surgery [id number] Encounters Date Type Department Care Team Description 08/01/2024 Results Follow-Up [facility] Dermatology [address] [facility] [address] [place] [address] Carlitos Madison MD PhD 07/28/2024 9:15 AM CDT Office Visit [facility] Dermatology [address] [facility] [address] [place] [address] Carlitos Madison MD PhD Seborrheic keratoses (Primary Dx); Multiple benign nevi; History of malignant melanoma; History of nonmelanoma skin cancer; Actinic keratosis; Neoplasm of unspecified behavior of bone, soft tissue, and skin 07/28/2024 Orders Only [facility] [address] [place] [address] Carlitos Madison MD PhD Neoplasm of unspecified behavior of bone, soft tissue, and skin from Last 3 Months Surgical History Surgery [...] disease) (HCC) copd no inhalers Low iron 2016 on oral iron, be ing followed by [...] on file Legal Sex Male 10:46 AM CRIMINAL INTELLIGENCE SPECIALIST Gender Identity Not on file Sexual Orientation Not on file Obstetrics History Last Filed Vital Signs Vital Sign Reading Time Taken Comments Blood Pressure 134/68 05/23/2024 9:02 AM CRIMINAL INTELLIGENCE SPECIALIST Pulse 73 05/23/2024 9:02 AM CRIMINAL INTELLIGENCE SPECIALIST Temperature 36.9 C (98.5 F) 05/23/2024 9:02 AM CRIMINAL INTELLIGENCE SPECIALIST Respiratory Rate 18 05/23/2024 9:02 AM CRIMINAL INTELLIGENCE SPECIALIST Oxygen Saturation 96% 05/23/2024 9:02 AM CRIMINAL INTELLIGENCE SPECIALIST Inhaled Oxygen Concentration - - Weight 99.8 kg (220 lb) 05/23/2024 7:16 AM CRIMINAL INTELLIGENCE SPECIALIST Height 177.8 cm (5' 10 ) 05/23/2024 7:16 AM CRIMINAL INTELLIGENCE SPECIALIST Body Mass Index 31.57 05/23/2024 7:16 AM CRIMINAL INTELLIGENCE SPECIALIST Plan of Treatment Health Maintenance Due Date [...] history exists Medical Devices Implanted Type Area Sewer Pipe Sorter Device Identifier Shelf Expiration Date Model / Serial / Lot Hip Replacement Right: Hip Procedures Procedure Name Priority Date/Time Associated Diagnosis Comments SURGICAL PATHOLOGY Routine 07/28/2024 12 :00 AM CDT Neoplasm of unspecified behavior of bone, soft tissue, and skin COLONOSCOPY 05/23/2024 7:18 AM CRIMINAL INTELLIGENCE SPECIALIST CT ABDOMEN PELVIS WO CONTRAST ED 11/15/2022 4:35 PM CDT from Last 3 Months or Most Recently Relevant to Health Maintenance Results * Surgical pathology (07/28/2024 12:00 AM CDT) Tissue specimen (specimen) (Skin, shave biopsy) 07/28/2024 07/28/2024 12:56 PM CDT [facility] - 08/01/2024 2:48 PM CDT EPIC results best viewed via link to PDF [facility] Dermatopathology [place] [address] [facility], [place] [address] [email or web address] Note to Patients: This [...] Submitting Physician Information: Carlitos Madison M.D. Dermatology [facility] [address], [address] [facility], [address] [place] [address], DERMATOPATHOLOGY REPORT RESULTS DIAGNOSIS: SKIN, RIGHT MID [...] ICD-9 A; ZSD.1411 ZSD.407 Clerical Data A; 78621 The characteristics of special, immunohistochemical, and immunofluorescence stains and in-situ hybridization tests performed by the [facility] were deemed acceptable in ongoing chief vendor quality measures and in compliance with regulations drawn from the Clinical Laboratory Improvement Act ja2803 (CLIA '88). Control reactions for all stains performed were deemed adequate and appropriate by a pathologist prior to evaluation of patient tissue. Some diagnoses were rendered with the assistance of laboratory-developed tests utilizing analyte-specific reagents; the performance characteristic of these tests were determined by [facility] and are not cleared or approved by the US Food an Drug administration. Laboratory developed test may only be performed in a facility that is certified by the [facility] as a high-complexity laboratory under CLIA '88. These tests are used for clinical purposes and are not investigational. Carlitos Madison MD PhD LAB PATHOLOGY OR DERABLES Final Result [facility]OPATHOLOGY CENTER [address] [place] [address] * Colonoscopy (05/23/2024 7:18 AM CRIMINAL INTELLIGENCE SPECIALIST) Anatomical Region Laterality Modality Other Narrative Procedure Note Kristofer Gonzalez MD - 05/23/2024 7:[address] [facility] Patient Name: Alex Parker Procedure Date: 05/23/2024 7:18 AM Date of : 1950 Admit Type: Outpatient Age: 74 Gender: Male Attending MD: Kristofer Gonzalez M.D. Room: [facility] ENDOSCOPY ROOM 1 Note Status: Finalized Patient [...] passed under direct vision. The Pediatric Colonoscope [id number] was introduced through the anus and advanced [...] 7:18 AM Procedure Code(s): --- Professional --- 35221, Colonoscopy, flexible; with biopsy, single or multiple Diagnosis Code(s): --- Professional --- Z80.0, Family history of malignant neoplasm of digestive organs Z86.010, Personal history of colonic polyps K64.8, Other hemorrhoids D12.5, Benign neoplasm of sigmoid colon D12.4, Benign neoplasm of descending colon D12.8, Benign neoplasm of rectum CPT copyright 2020 [employer]. All rights reserved. The codes documented in this report are preliminary and upon central office equipment engineer reviewmay be revised to meet current compliance requirements. Recognized by the [employer] Gastrointestinal [employer] for promoting quality [...] Agustín Knox M.D. KT: KT Report ID: [id number] Reading Location: [id number] Procedure Note Agustín Knox MD - 11/15/2022 [...] Agustín Knox M.D. KT: SKY Report ID: [id number] Reading Location: [place] [address] Zhane Perez MD IMG CT PROCEDURES Final R esult from Last 3 Months or Most Recently Relevant to Health Maintenance Insurance U[employer] MEDICARE ADVANTAGE [facility] MEDICARE [facility] MEDICARE Advance Directives For more information, please contact: [phone] Documents on File Type Date Recorded Patient Forensic Artist Expl anation ADVANCE DIRECTIVE 03/05/2021 11:17 AM Aysha r of Director Of It Operations-Medical * Full Code (Latest Code Status on [...] 7:12 AM 05/24/2020 1:01 PM Care Teams Used Car Renovator Relationship Specialty Start Date End Date Hilary Wynn MD [address] [place] [address] PCP - General 08/08/16 Martinez Adams MD [address] [place] [address] Consulting Physician Otolaryngology 09/01/21 Carlitos Madison MD PhD [address] [place] [address] Hydraulic Oil Tool Operator Dermatology 04/13/22
== END 2024-08-23 08:17 | disposition home or self-care (01) ==
LOC: CHSIMG 08:17
PROVIDERS: PCP Internal Medicine; Visit Provider Internal Medicine
DX: M25.551 Pain in right hip (principal); M25.552 Pain in left hip; Z96.641 Presence of right artificial hip joint
CPT/HCPCS: 73521

== ENCOUNTER 2024-11-02 09:35 | Outpatient (CLI) | payer MEDICARE, SELFPAY ==
--- NOTE | ~2024-11-02 | XR_ITS ---
XR abdomen/kub 1V Ordering provider: Chadd Knight, History: . Kidney stones one year check up . Comparison: None. FINDINGS: BOWEL: Nonobstructive bowel gas pattern. ORGANOMEGALY: None. SIGNIFICANT PATHOLOGIC CALCIFICATIONS: None. OTHER: No free air is seen under the diaphragm. Postoperative changes in the spine. Multilevel degenerative disc disease. Right hip arthroplasty. IMPRESSION: NO ACUTE ABDOMINAL FINDINGS. No definite stones seen. Reviewed, dictated and finalized at location A.
--- OUTSIDE RECORDS SUMMARY | 2024-11-02 09:41 | XMS_ITS | Encounter Summary ---
Author Organization [facility] Address [address] [place] [address] Phone Care Team Providers Care Tank Setter Name Role Phone Hilary Wynn MD Primary Care Provider [phone] Martinez Adams MD Unavailable [phone] Carlitos Madison MD PhD Unavailable Encounter Details Date Type Department Care Team (Late st Contact Info) Description 10/17/2020 Telephone [facility] Surgery [address] [facility] 5[address] [place] [address] [place] [address] Abril Chavarria Social History Tobacco [...] on file Legal Sex Male 10:46 AM MANUFACTURING OPERATOR Gender Identity Not on file Sexual Orientation Not on file documented as of this encounter Plan of Treatment Not on file documented as of this encounter Visit Diagnoses Not on filedocumented in this encounter Care Teams Tank Setter Relationship Specialty Start Date End Date Hilary Wynn MD [address] [place] [address] PCP - General 08/08/16 Martinez Adams MD [address] [place] [address] Consulting Physician Otolaryngology 09/01/21 Carlitos Madison MD PhD [address] [place] [address] Material Yard Clerk Dermatology 04/13/22 documented as of this encounter
--- OUTSIDE RECORDS SUMMARY | 2024-11-02 09:41 | XMS_ITS | Clinical Summary ---
Author Organization [facility] Address [address] [place] [address] Care Team Providers Care Cracker And Cookie Machine Operator Name Role Phone Hilary Wynn MD Primary Care Provider [phone] Allergies No known active allergies Medications potassium [...] 12:57 PM CDT Height 177.8 cm (5' 10) 12/26/2019 12:57 PM CDT Body Mass Index [...] this topic Medical Devices Implanted Type Area Diamond Finishing Supervisor Device Identifier Shelf Expiration Date Model / Serial / Lot Iol Kyle [id number] - [id number] Implanted:Qty: 1 on 01/02/2020 by Krishna Elizalde MD at [facility] Lens Left: Eye KYLE - SURGICAL DIV 06/12/2024 [id number] / [id number] / N/A Description:Implant verified by MD Insurance MED [facility] MEDICARE Care Teams Cracker And Cookie Machine Operator Relationship Specialty Start Date End Date Hilary Wynn MD [address] [place] [address] PCP - General INTERNAL MEDICINE 12/29/19
--- OUTSIDE RECORDS SUMMARY | 2024-11-02 09:41 | XMS_ITS | Encounter Summary ---
Author Organization [facility] Address [address] [facility] [address] [place] [address] Care Team Providers Care Spout Tender Name Role Phone Hilary Wynn MD Primary Care Provider [phone] Martinez Adams MD Unavailable [phone] Carlitos Madison MD PhD Unavailable Encounter Details Date Type Department Care Team ([facility] Contact Info) Description 02/16/2013 Orders Only [facility] Management [address] [place] [address] Scanning, Provider Social History Tobacco Use Types Packs/Day Years Used Date Smoking Tobacco: Never Assessed Sex and Gender Information Value Date Recorded Sex Assigned at Not on file Legal Sex Male 10:46 AM MULTIPLE NEEDLE STITCHER Gender Identity Not on file Sexual Orientation [...] on filedocumented in this encounter Care Teams Spout Tender Relationship Specialty Start Date End Date Hilary Wynn MD [address] [place] [address] PCP - General 08/08/16 Martinez Adams MD [address] [place] [address] Consulting Physician Otolaryngology 09/01/21 Carlitos Madison MD PhD [address] [place] [address] Security Public Safety Officer Dermatology 04/13/22 documented as of this encounter
--- OUTSIDE RECORDS SUMMARY | 2024-11-02 09:41 | XMS_ITS | Encounter Summary ---
Author Organization [facility] Address [address] [facility] [address] [place] [address] Care Team Providers Care Nursing Home Assistant Name Role Phone Hilary Wynn MD Primary Care Provider [phone] Martinez Adams MD Unavailable [phone] Carlitos Madison MD PhD Unavailable Encounter Details Date Type Department Care Team ([facility] Contact Info) Description 02/15/2013 Orders Only [facility] Information Management [address] [place] [address] Scanning, Provider Social History Tobacco Use Types Packs/Day Years Used Date Smoking Tobacco: Never Assessed Sex and Gender Information Value Date Recorded Sex Assigned at Not on file Legal Sex Male 10:46 AM INVENTORY COORDINATOR Gender Identity Not on file Sexual Orientation [...] on filedocumented in this encounter Care Teams Nursing Home Assistant Relationship Specialty Start Date End Date Hilary Wynn MD [address] [place] [address] PCP - General 08/08/16 Martinez Adams MD [address] [place] [address] Consulting Physician Otolaryngology 09/01/21 Carlitos Madison MD PhD [address] [place] [address] Scientific Associate Dermatology 04/13/22 documented as of this encounter
--- OUTSIDE RECORDS SUMMARY | 2024-11-02 09:41 | XMS_ITS | Encounter Summary ---
Author Organization [facility] Address [address] [facility] [address] [place] [address] Care Team Providers Care Ccnp Name Role Phone Hilary Wynn MD Primary Care Provider [phone] Martinez Adams MD Unavailable [phone] Carlitos Madison MD PhD Unavailable Encounter Details Date Type Department Care Team ([facility] Contact Info) Description 11/18/2011 Orders Only [facility] Health Information Management [address] [place] [address] Scanning, Provider Social History Tobacco Use Types Packs/Day Years Used Date Smoking Tobacco: Never Assessed Sex and Gender Information Value Date Recorded Sex Assigned at Not on file Legal Sex Male 10:46 AM SWITCHBOARD AND CONTROL ROOM OPERATOR Gender Identity Not on file Sexual [...] on filedocumented in this encounter Care Teams Ccnp Relationship Specialty Start Date End Date Hilary Wynn MD [address] [place] [address] PCP - General 08/08/16 Martinez Adams MD [address] [place] [address] Consulting Physician Otolaryngology 09/01/21 Carlitos Madison MD PhD [address] [place] [address] Oem Sales Manager Dermatology 04/13/22 documented as of this encounter
--- OUTSIDE RECORDS SUMMARY | 2024-11-02 09:41 | XMS_ITS | Clinical Summary ---
Author Organization [facility] Address [address] [place] [address] Phone Care Team Providers Care Manager Floral Name Role Phone Hilary Wynn MD Primary Care Provider [phone] Chadd Knight MD Unavailable Allergies Active Allergy [...] 10:03 AM CDT Height 177.8 cm (5' 10) 08/05/2023 10:03 AM CDT Body Mass Index 34.01 08/05/2023 10:03 AM CDT Plan of Treatment Health Maintenance Due Date Last Done Comments Hepatitis C Virus (HCV) Screening 1950 Cologuard 01/02/1996 Immunochemical Fecal Occult Blood 01/02/1996 SARS-COV-2 Immunization ( season) 2024 01/27/2022, 01/28/2021, 06/25/2020, Additional history exists Influenza Immunization (#1) 01/01/202501/31, 02/17/2022, 02/19/2021, Additional history exists Respiratory Syncytial Virus (RSV) Immunization (Adult) (1 - 1-dose 75+ series) 2026 Colonoscopy 05/24/2030 05/24/2020 Colorectal Cancer Screening 05/24/2030 DTaP/Tdap/Td Immunization Discontinued 02/28/2018 TdaP Immunization Completed 02/28/2018 Pneumococcal Immunization (50+ years) Completed 02/02/2019, 04/20/2018 Pneumococcal Immunization Combined Discontinued 02/02/2019, 04/20/2018 Zoster Immunization Completed 10/06/2019, 06/02/2019, 02/21/2013 Hepatitis B Immunization Aged Out No longer eligible based on patient's age to complete this topic Human Papillomavirus (HPV) Immunization Aged Out No longer eligible based on patient's age to complete this topic Meningococcal Immunization (ACWY) Aged Out No longer eligible based on patient's age to complete this topic Rotavirus Immunization Aged Out No lo nger eligible based on patient's age to complete this topic Insurance MEDICARE C AETNA Care Teams Manager Floral Relationship Specialty Start Date End Date Hilary Wynn MD [address] [place] [address] PCP - General Internal Medicine 12/08/16 Chadd Knight MD [address] [address] Consulting Physician Urology 08/05/23
--- OUTSIDE RECORDS SUMMARY | 2024-11-02 09:41 | XMS_ITS | Clinical Summary ---
Author Organization [facility] Address [address] [place] [address] Care Team Providers Care Clearing Inspector Name Role Phone Hilary Wynn MD Primary Care Provider [phone] Martinez Adams MD Unavailable [phone] Carlitos Madison MD PhD Unavailable Allergies Active [...] (07/09/2021): Added automatically from request for surgery [id number] Sebaceous cyst 02/28/2021 Overview (02/28/2021): Added automatically from request for surgery [id number] Malignant melanoma of left u pper extremity including shoulder 09/19/2020 Overview (09/19/2020): Added automatically from request for surgery [id number] 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 09/16/2020 Overview (09/16/2020): Added automatically from request for surgery [id number] Iron deficiency anemia 03/20/2020 Assessment & Plan (03/20/2020 4:43 PM POLL WATCHER): Patient has high as iron deficiency anemia which seems to be corrected with oral iron. He has history of GI bleeding. No sign of bleeding at this time. Schedule colonoscopy for evaluation. No need for further evaluation the stone. 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 Endoscopic removal was very difficult and he was treated at [facility] with couple endoscopy procedures. No need for endoscopy at this time as long as there is no sign of melena. Resolved Problems Problem Noted Date Diagnosed Date Resolved Date Encounter for screening colonoscopy 03/07/2020 04/11/2021 Overview (03/07/2020): Added automatically from request for surgery [id number] Surgical History Surgery Date Site/Laterality Comments PROSTATECTOMY [...] on file Legal Sex Male 10:46 AM POLL WATCHER Gender Identity Not on file Sexual Orientation Not on file Obstetrics History Last Filed Vital Signs Vital Sign Reading Time Taken Comments Blood Pressure 134/68 05/23/2024 9:02 AM POLL WATCHER Pulse 73 05/23/2024 9:02 AM POLL WATCHER Temperature 36.9 C (98.5 F) 05/23/2024 9:02 AM POLL WATCHER Respiratory Rate 18 05/23/2024 9:02 AM POLL WATCHER Oxygen Saturation 96% 05/23/2024 9:02 AM POLL WATCHER Inhaled Oxygen Concentration - - Weight 99.8 kg (220 lb) 05/23/2024 7:16 AM POLL WATCHER Height 177.8 cm (5' 10) 05/23/2024 7:16 AM POLL WATCHER Body Mass Index 31.57 05/23/2024 7:16 AM POLL WATCHER Plan of Treatment Health Maintenance Due Date Last Done Comments Depression Screening 1950 Hepatitis C Screening 1950 Hepatitis B Screening 1969 Well Visit 65+ 01/02/2016 Covid-19 Vaccine ( - 2023-2 5 season) 2024 01/28/2021, 06/25/2020, [...] history exists Medical Devices Implanted Type Area Dive Superintendent Device Identifier Shelf Expiration Date Model / Serial / Lot Hip Replacement Right: Hip Procedures Procedure Name Priority Date/Time Associated Diagnosis Comments COLONOSCOPY 05/23/2024 7:[address] ABDOMEN PELVIS WO CONTRAST ED 11/15/2022 4:35 PM CDT from Last 3 Months or Most Recently Relevant to Health Maintenance Results * Colonoscopy (05/23/2024 7:18 AM POLL WATCHER) Anatomical Region Laterality Modality Other Narrative Procedure Note Kristofer Gonzalez MD - 05/23/2024 7:18 AM CST [facility] Patient Name: Alex Hong Procedure Date: 05/23/2024 7:18 AM Date of : 1950 Admit Type: Outpatient Age: 74 Gender: Male Attending MD: Kristofer Gonzalez M.D. Room: [facility] ENDOSCOPY ROOM 1 Note Status: [...] passed under direct vision. The Pediatric Colonoscope [id number] was introduced through the anus and advanced [...] 7:18 AM Procedure Code(s): --- Professional --- 90117, Colonoscopy, flexible; with biopsy, single or multiple Diagnosis Code(s): --- Professional --- Z80.0, Family history of malignant neoplasm of digestive organs Z86.010, Personal history of colonic polyps K64.8, Other hemorrhoids D12.5, Benign neoplasm of sigmoid colon D12.4, Benign neoplasm of descending colon D12.8, Benign neoplasm of rectum CPT copyright 2020 [employer]. All rights reserved. The codes documented in this report are preliminary and upon certified medical coder reviewmay be revised to meet current compliance requirements. Recognized by the [employer] Society for Gastrointestinal Endoscopy for promoting quality [...] Agustín Knox M.D. KT: SKY Report ID: [id number] Reading Location: [id number] Procedure Note Agustín Knox MD - 11/15/2022 [...] Agustín Knox M.D. KT: SKY Report ID: [id number] Reading Location: [place] [address] Zhane Perez MD IM CT PROCEDURES Final R esult from Last 3 Months or Most Recently Relevant to Health Maintenance Insurance [facility] MEDICARE ADVANTAGE [facility] MEDICARE AETNA MEDICARE Advance Directives For more information, please contact: [phone] Documents on File Type Date Recorded Patient Busgirl Expl anation ADVANCE DIRECTIVE 03/05/2021 11:17 AM Aysha r of International Sourcing Manager-Medical * Full Code (Latest Code Status on [...] 7:12 AM 05/24/2020 1:01 PM Care Teams Clearing Inspector Relationship Specialty Start Date End Date Hilary Wynn MD [address] [place] [address] PCP - General 08/08/16 Martinez Adams MD [address] [place] [address] Consulting Physician Otolaryngology 09/01/21 Carlitos Madison MD PhD [address] [place] [address] Fitness Centre Manager Dermatology 04/13/22
--- OUTSIDE RECORDS SUMMARY | 2024-11-02 09:41 | XMS_ITS | Encounter Summary ---
Author Organization [facility] Address [address] [facility] [address] [place] [address] Care Team Providers Care Piped Buttonhole Machine Operator Name Role Phone Hilary Wynn MD Primary Care Provider + [phone] Martinez Adams MD Unavailable [phone] Carlitos Madison MD PhD Unavailable Encounter Details Date Type Department Care Team (Late st Contact Info) Description 01/05/2013 Orders Only [facility] Health Information Management [address] [place] [address] Scanning, Provider Social History Tobacco Use Types Packs/Day Years Used Date Smoking Tobacco: Never Assessed Sex and Gender Information Value Date Recorded Sex Assigned at Not on file Legal Sex Male 10:46 AM QUALITY CONTROL LAB TECHNICIAN Gender Identity Not on file Sexual [...] on filedocumented in this encounter Care Teams Piped Buttonhole Machine Operator Relationship Specialty Start Date End Date Hilary Wynn MD [address] [place] [address] PCP - General 08/08/16 Martinez Adams MD [address] [place] [address] Consulting Physician Otolaryngology 09/01/21 Carlitos Madison MD PhD [address] [place] [address] Nnp Dermatology 04/13/22 documented as of this encounter
--- OUTSIDE RECORDS SUMMARY | 2024-11-02 09:41 | XMS_ITS | Referral Summary ---
Author Organization [facility] Address [address] [place] [address] Care Team Providers Care Residential Door Unit Installer Name Role Phone Hilary Wynn MD Primary Care Provider [phone] Martinez Adams MD Unavailable [phone] Carlitos Madison MD PhD Unavailable Allergies Active [...] (07/09/2021): Added automatically from request for surgery [id number] Sebaceous cyst 02/28/2021 Overview (02/28/2021): Added automatically from request for surgery [id number] Malignant melanoma of left u pper extremity including shoulder 09/19/2020 Overview (09/19/2020): Added automatically from request for surgery [id number] 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 09/16/2020 Overview (09/16/2020): Added automatically from request for surgery [id number] Iron deficiency anemia 03/20/2020 Assessment & Plan (03/20/2020 4:43 PM MARINE ELECTRICIAN HELPER): Patient has high as iron deficiency anemia which seems to be corrected with oral iron. He has history of GI bleeding. No sign of bleeding at this time. Schedule colonoscopy for evaluation. No need for further evaluation the stone. 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 Endoscopic removal was very difficult and he was treated at [facility] with couple endoscopy procedures. No need for endoscopy at this time as long as there is no sign of melena. Resolved Problems Problem Noted Date Diagnosed Date Resolved Date Encounter for screening colonoscopy 03/07/2020 04/11/2021 Overview (03/07/2020): Added automatically from request for surgery [id number] Social History Tobacco Use Types Packs/Day Years [...] on file Legal Sex Male 10:46 AM MARINE ELECTRICIAN HELPER Gender Identity Not on file Sexual Orientation Not on file Last Filed Vital Signs Vital Sign Reading Time Taken Comments Blood Pressure 134/68 05/23/2024 9:02 AM MARINE ELECTRICIAN HELPER Pulse 73 05/23/2024 9:02 AM MARINE ELECTRICIAN HELPER Temperature 36.9 C (98.5 F) 05/23/2024 9:02 AM MARINE ELECTRICIAN HELPER Respiratory Rate 18 05/23/2024 9:02 AM MARINE ELECTRICIAN HELPER Oxygen Saturation 96% 05/23/2024 9:02 AM MARINE ELECTRICIAN HELPER Inhaled Oxygen Concentration - - Weight 99.8 kg (220 lb) 05/23/2024 7:16 AM MARINE ELECTRICIAN HELPER Height 177.8 cm (5' 10) 05/23/2024 7:16 AM MARINE ELECTRICIAN HELPER Body Mass Index 31.57 05/23/2024 7:16 AM MARINE ELECTRICIAN HELPER Plan of Treatment Not on file Medical Devices Implanted Type Area Central Supply Worker Device Identifier Shelf Expiration Date Model / Serial / Lot Hip Replacement Right: Hip Procedures Procedure Name Priority Date/Time Associated Diagnosis Comments COLONOSCOPY 05/23/2024 7:18 AM MARINE ELECTRICIAN HELPER CT ABDOMEN PELVIS WO CONTRAST ED 11/15/2022 4:35 PM CDT from Last 3 Months or Most Recently Relevant to Health Maintenance Results * Colonoscopy (05/23/2024 7:18 AM MARINE ELECTRICIAN HELPER) Anatomical Region Laterality Modality Other Narrative Procedure Note Kristofer Gonzalez MD - 05/23/2024 7:[address] [facility] Patient Name: Alex Hong Procedure Date: [...] passed under direct vision. The Pediatric Colonoscope [id number] was introduced through the anus and advanced [...] 7:18 AM Procedure Code(s): --- Professional --- 76530, Colonoscopy, flexible; with biopsy, single or multiple Diagnosis Code(s): --- Professional --- Z80.0, Family history of malignant neoplasm of digestive organs Z86.010, Personal history of colonic polyps K64.8, Other hemorrhoids D12.5, Benign neoplasm of sigmoid colon D12.4, Benign neoplasm of descending colon D12.8, Benign neoplasm of rectum CPT copyright 2020 [employer]. All rights reserved. The codes documented in this report are preliminary and upon director of medical staff services reviewmay be revised to meet current compliance requirements. Recognized by the [place] Society for Gastrointestinal Endoscopy for promoting quality [...] Agustín Knox M.D. KT: SKY Report ID: [id number] Reading Location: [id number] Procedure Note Agustín Knox MD - 11/15/2022 [...] Agustín Knox M.D. KT: SKY Report ID: [id number] Reading Location: [place] [address] Zhane Perez MD IMG CT PROCEDURES Final R esult from Last 3 Months or Most Recently Relevant to Health Maintenance Insurance [facility] MEDIC[id number] AET MEDICARE Advance Directives For more information, please contact: [phone] Documents on File Type Date Recorded Patient Vessel Scrapper Helper Expl anation ADVANCE DIRECTIVE 03/05/2021 11:17 AM Aysha r of Supervisor Coffee-Medical * Full Code (Latest Code Status on [...] 7:12 AM 05/24/2020 1:01 PM Care Teams Residential Door Unit Installer Relationship Specialty Start Date End Date Hilary Wynn MD [address] [place] [address] PCP - General 08/08/16 Martinez Adams MD [address] [place] [address] Consulting Physician Otolaryngology 09/01/21 Carlitos Madison MD PhD [address] [place] [address] Filling Hauler Weaving Dermatology 04/13/22
== END 2024-11-02 09:36 | disposition home or self-care (01) ==
LOC: CHSIMG 09:37
PROVIDERS: PCP Internal Medicine; Visit Provider Urology
DX: N20.0 Calculus of kidney (principal)
CPT/HCPCS: 74018

== ENCOUNTER 2024-11-20 09:38 | Outpatient (CLI) | payer MEDICARE, SELFPAY ==
--- OUTSIDE RECORDS SUMMARY | 2024-11-20 09:43 | XMS_ITS | Encounter Summary ---
Author Organization [facility] Address [address] [place] [address] Care Team Providers Care Senior Ruby Developer Name Role Phone Hilary Wynn MD Primary Care Provider + [phone] Martinez Adams MD Unavailable [phone] Carlitos Madison MD PhD Unavailable Encounter Details Date Type Department Care Team ([facility] Contact Info) Description 02/16/2013 Orders Only [facility] [place] Information Management [address] [place] [address] Scanning, Provider Social History Tobacco Use Types Packs/Day Years Used Date Smoking Tobacco: Never Assessed Sex and Gender Information Value Date Recorded Sex Assigned at Not on file Legal Sex Male 10:46 AM CONDUCTOR/ENGINEER Gender Identity Not on file Sexual Orientation [...] on filedocumented in this encounter Care Teams Senior Ruby Developer Relationship Specialty Start Date End Date Hilary Wynn MD [address] [place] [address] PCP - General 08/08/16 Martinez Adams MD [address] [place] [address] Consulting Physician Otolaryngology 09/01/21 Carlitos Madison MD PhD [address] [place] [address] Crop Or Grain Farmer Dermatology 04/13/22 documented as of this encounter
--- OUTSIDE RECORDS SUMMARY | 2024-11-20 09:43 | XMS_ITS | Encounter Summary ---
Author Organization [facility] Address [address] [facility] [address] [place] [address] Care Team Providers Care Consultant Education Name Role Phone Hilary Wynn MD Primary Care Provider + [phone] Martinez Adams MD Unavailable [phone] Carlitos Madison MD PhD Unavailable Encounter Details Date Type Department Care Team ([facility] Contact Info) Description 02/15/2013 Orders Only [facility] Health Information Management [address] [place] [address] Scanning, Provider Social History Tobacco Use Types Packs/Day Years Used Date Smoking Tobacco: Never Assessed Sex and Gender Information Value Date Recorded Sex Assigned at Not on file Legal Sex Male 10:46 AM ION IMPLANT MACHINE OPERATOR Gender Identity Not on file Sexual [...] on filedocumented in this encounter Care Teams Consultant Education Relationship Specialty Start Date End Date Hilary Wynn MD [address] [place] [address] PCP - General 08/08/16 Martinez Adams MD [address] [place] [address] Consulting Physician Otolaryngology 09/01/21 Carlitos Madison MD PhD [address] [place] [address] Store Sales Leader Dermatology 04/13/22 documented as of this encounter
--- OUTSIDE RECORDS SUMMARY | 2024-11-20 09:43 | XMS_ITS | Encounter Summary ---
Author Organization [facility] Address [address] [place] [address] Phone Care Team Providers Care Bait Packer Name Role Phone Hilary Wynn MD Primary Care Provider [phone] Martinez Adams MD Unavailable [phone] Carlitos Madison MD PhD Unavailable Encounter Details Date Type Department Care Team (Late st Contact Info) Description 10/17/2020 Telephone [facility] Surgery [address] [facility] [address] [facility] 5[address] [place] [address] Abril Chavarria Social History Tobacco [...] on file Legal Sex Male 10:46 AM MILLER APPRENTICE Gender Identity Not on file Sexual Orientation Not on file documented as of this encounter Plan of Treatment Not on file documented as of this encounter Visit Diagnoses Not on filedocumented in this encounter Care Teams Bait Packer Relationship Specialty Start Date End Date Hilary Wynn MD [address] [place] [address] PCP - General 08/08/16 Martinez Adams MD [address] [place] [address] Consulting Physician Otolaryngology 09/01/21 Carlitos Madison MD PhD [address] [place] [address] Structural Architect Dermatology 04/13/22 documented as of this encounter
--- OUTSIDE RECORDS SUMMARY | 2024-11-20 09:43 | XMS_ITS | Encounter Summary ---
Author Organization [facility] Address [address] [facility] [address] [place] [address] Care Team Providers Care Middle School History Teacher Name Role Phone Hilary Wynn MD Primary Care Provider + [phone] Martinez Adams MD Unavailable [phone] Carlitos Madison MD PhD Unavailable Encounter Details Date Type Department Care Team ([facility] Contact Info) Description 11/18/2011 Orders Only [facility] [place] Information Management [address] [place] [address] Scanning, Provider Social History Tobacco Use Types Packs/Day Years Used Date Smoking Tobacco: Never Assessed Sex and Gender Information Value Date Recorded Sex Assigned at Not on file Legal Sex Male 10:46 AM MICROSOFT SYSTEMS ENGINEER Gender Identity Not on file Sexual [...] on filedocumented in this encounter Care Teams Middle School History Teacher Relationship Specialty Start Date End Date Hilary Wynn MD [address] [place] [address] PCP - General 08/08/16 Martinez Adams MD [address] [place] [address] Consulting Physician Otolaryngology 09/01/21 Carlitos Mdaison MD PhD [address] [place] [address] Cloth Shader Dermatology 04/13/22 documented as of this encounter
--- OUTSIDE RECORDS SUMMARY | 2024-11-20 09:43 | XMS_ITS | Clinical Summary ---
Author Organization [facility] Address [address] [place] [address] Care Team Providers Care Centrex Radio Operator Name Role Phone Hilary Wynn MD Primary Care Provider [phone] Allergies No known active allergies Medications potassium [...] this topic Medical Devices Implanted Type Area After School Program Teacher Device Identifier Shelf Expiration Date Model / Serial / Lot Iol Kyle [id number] - [id number] Implanted:Qty: 1 on 01/02/2020 by Krishna Elizalde MD at [facility] Lens Left: Eye KYLE - SURGICAL DIV 06/12/2024 [id number] / [id number] / N/A Description:Implant verified by MD Insurance MED [facility] MEDICARE Care Teams Centrex Radio Operator Relationship Specialty Start Date End Date Hilary Wynn MD [address] [place] [address] PCP - General INTERNAL MEDICINE 12/29/19
--- OUTSIDE RECORDS SUMMARY | 2024-11-20 09:43 | XMS_ITS | Encounter Summary ---
Author Organization [facility] Address [address] [facility] [address] [place] [address] Care Team Providers Care Head Of Product Name Role Phone Hilary Wynn MD Primary Care Provider + [phone] Martinez Adams MD Unavailable [phone] Carlitos Madison MD PhD Unavailable Encounter Details Date Type Department Care Team (Late st Contact Info) Description 01/05/2013 Orders Only [facility] Health Information Management [address] [place] [address] Scanning, Provider Social History Tobacco Use Types Packs/Day Years Used Date Smoking Tobacco: Never Assessed Sex and Gender Information Value Date Recorded Sex Assigned at Not on file Legal 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
--- OUTSIDE RECORDS SUMMARY | 2024-11-20 09:44 | XMS_ITS | Referral Summary ---
Author Organization [facility] Address [address] [place] [address] Care Team Providers Care Blood Donor Unit Assistant Name Role Phone Hilary Wynn MD Primary Care Provider [phone] Martinez Adams MD Unavailable [phone] Carlitos Madison MD PhD Unavailable Allergies Active [...] (07/09/2021): Added automatically from request for surgery [id number] Sebaceous cyst 02/28/2021 Overview (02/28/2021): Added automatically from request for surgery [id number] Malignant melanoma of left u pper extremity including shoulder 09/19/2020 Overview (09/19/2020): Added automatically from request for surgery [id number] 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 09/16/2020 Overview (09/16/2020): Added automatically from request for surgery [id number] Iron deficiency anemia 03/20/2020 Assessment & Plan (03/20/2020 4:43 PM PLATE GLASS INSTALLER HELPER): Patient has high as iron deficiency anemia which seems to be corrected with oral iron. He has history of GI bleeding. No sign of bleeding at this time. Schedule colonoscopy for evaluation. No need for further evaluation the stone. 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 Endoscopic removal was very difficult and he was treated at [facility] with couple endoscopy procedures. No need for endoscopy at this time as long as there is no sign of melena. Resolved Problems Problem Noted Date Diagnosed Date Resolved Date Encounter for screening colonoscopy 03/07/2020 04/11/2021 Overview (03/07/2020): Added automatically from request for surgery [id number] Social History Tobacco Use Types Packs/Day Years [...] on file Legal Sex Male 10:46 AM PLATE GLASS INSTALLER HELPER Gender Identity Not on file Sexual Orientation Not on file Last Filed Vital Signs Vital Sign Reading Time Taken Comments Blood Pressure 134/68 05/23/2024 9:02 AM PLATE GLASS INSTALLER HELPER Pulse 73 05/23/2024 9:02 AM PLATE GLASS INSTALLER HELPER Temperature 36.9 C (98.5 F) 05/23/2024 9:02 AM PLATE GLASS INSTALLER HELPER Respiratory Rate 18 05/23/2024 9:02 AM PLATE GLASS INSTALLER HELPER Oxygen Saturation 96% 05/23/2024 9:02 AM PLATE GLASS INSTALLER HELPER Inhaled Oxygen Concentration - - Weight 99.8 kg (220 lb) 05/23/2024 7:16 AM PLATE GLASS INSTALLER HELPER Height 177.8 cm (5' 10) 05/23/2024 7:16 AM PLATE GLASS INSTALLER HELPER Body Mass Index 31.57 05/23/2024 7:16 AM PLATE GLASS INSTALLER HELPER Plan of Treatment Not on file Medical Devices Implanted Type Area Torpedoman'S Mate Device Identifier Shelf Expiration Date Model / Serial / Lot Hip Replacement Right: Hip Procedures Procedure Name Priority Date/Time Associated Diagnosis Comments COLONOSCOPY 05/23/2024 7:18 AM PLATE GLASS INSTALLER HELPER CT ABDOMEN PELVIS WO CONTRAST ED 11/15/2022 4:35 PM CDT from Last 3 Months or Most Recently Relevant to Health Maintenance Results * Colonoscopy (05/23/2024 7:18 AM PLATE GLASS INSTALLER HELPER) Anatomical Region Laterality Modality Other Narrative Procedure Note Kristofer Gonzalez MD - 05/23/2024 7:18 AM CST [facility] Patient Name: Alex Hong Procedure Date: 05/23/2024 7:18 AM Date of : 1950 Admit Type: Outpatient Age: 74 Gender: Male Attending MD: Kristofer Gonzalez M.D. Room: [facility] ENDOSCOPY ROOM 1 Note Status: [...] passed under direct vision. The Pediatric Colonoscope [id number] was introduced through the anus and advanced [...] 7:18 AM Procedure Code(s): --- Professional --- 55090, Colonoscopy, flexible; with biopsy, single or multiple Diagnosis Code(s): --- Professional --- Z80.0, Family history of malignant neoplasm of digestive organs Z86.010, Personal history of colonic polyps K64.8, Other hemorrhoids D12.5, Benign neoplasm of sigmoid colon D12.4, Benign neoplasm of descending colon D12.8, Benign neoplasm of rectum CPT copyright 2020 [employer]. All rights reserved. The codes documented in this report are preliminary and upon construction foreman reviewmay be revised to meet current compliance requirements. Recognized by the [employer] for promoting quality [...] Agustín Knox M.D. KT: SKY Report ID: [id number] Reading Location: [id number] Procedure Note Agustín Knox MD - 11/15/2022 [...] Agustín Knox M.D. KT: SKY Report ID: [id number] Reading Location: [place] [address] Zhane Perez MD IMG CT PROCEDURES Final R esult from Last 3 Months or Most Recently Relevant to Health Maintenance Insurance [facility] MEDICARE ADVANTAGE [facility] MEDICARE AET MEDICARE Advance Directives For more information, please contact: [phone] Documents on File Type Date Recorded Patient Caustic Preparer Expl anation ADVANCE DIRECTIVE 03/05/2021 11:17 AM Aysha r of Medical Auditor-Medical * Full Code (Latest Code Status on [...] 7:12 AM 05/24/2020 1:01 PM Care Teams Blood Donor Unit Assistant Relationship Specialty Start Date End Date Hilary Wynn MD [address] [place] [address] PCP - General 08/08/16 Martinez Adams MD [address] [place] [address] Consulting Physician Otolaryngology 09/01/21 Carlitos Madison MD PhD [address] [place] [address] Senior Fire Protection Engineer Dermatology 04/13/22
--- OUTSIDE RECORDS SUMMARY | 2024-11-20 09:44 | XMS_ITS | Clinical Summary ---
Author Organization [facility] Address [address] [place] [address] Care Team Providers Care Teacher'S Assistant Name Role Phone Hilary Wynn MD Primary Care Provider [phone] Martinez Adams MD Unavailable [phone] Carlitos Madison MD PhD Unavailable Allergies Active [...] (07/09/2021): Added automatically from request for surgery [id number] Sebaceous cyst 02/28/2021 Overview (02/28/2021): Added automatically from request for surgery [id number] Malignant melanoma of left u pper extremity including shoulder 09/19/2020 Overview (09/19/2020): Added automatically from request for surgery [id number] 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 09/16/2020 Overview (09/16/2020): Added automatically from request for surgery [id number] Iron deficiency anemia 03/20/2020 Assessment & Plan (03/20/2020 4:43 PM CARE CLINICIAN): Patient has high as iron deficiency anemia which seems to be corrected with oral iron. He has history of GI bleeding. No sign of bleeding at this time. Schedule colonoscopy for evaluation. No need for further evaluation the stone. 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 Endoscopic removal was very difficult and he was treated at [facility] with couple endoscopy procedures. No need for endoscopy at this time as long as there is no sign of melena. Resolved Problems Problem Noted Date Diagnosed Date Resolved Date Encounter for screening colonoscopy 03/07/2020 04/11/2021 Overview (03/07/2020): Added automatically from request for surgery [id number] Surgical History Surgery Date Site/Laterality Comments PROSTATECTOMY [...] on file Legal Sex Male 10:46 AM CARE CLINICIAN Gender Identity Not on file Sexual Orientation Not on file Obstetrics History Last Filed Vital Signs Vital Sign Reading Time Taken Comments Blood Pressure 134/68 05/23/2024 9:02 AM CARE CLINICIAN Pulse 73 05/23/2024 9:02 AM CARE CLINICIAN Temperature 36.9 C (98.5 F) 05/23/2024 9:02 AM CARE CLINICIAN Respiratory Rate 18 05/23/2024 9:02 AM CARE CLINICIAN Oxygen Saturation 96% 05/23/2024 9:02 AM CARE CLINICIAN Inhaled Oxygen Concentration - - Weight 99.8 kg (220 lb) 05/23/2024 7:16 AM CARE CLINICIAN Height 177.8 cm (5' 10) 05/23/2024 7:16 AM CARE CLINICIAN Body Mass Index 31.57 05/23/2024 7:16 AM CARE CLINICIAN Plan of Treatment Health Maintenance Due Date Last Done Comments Depression Screening 1950 Hepatitis C Screening 1950 Hepatitis B Screening 1969 Well Visit 65+ 01/02/2016 Covid-19 Vaccine (4 - 2023-2 5 season) 2024 01/28/2021, 06/25/2020, 06/04/2020 Influenza Vaccine (#1) 2025 , 01/29/2020, 02/02/2019, Additional history exists Fall Risk [...] history exists Medical Devices Implanted Type Area Measurement Specialist Device Identifier Shelf Expiration Date Model / Serial / Lot Hip Replacement Right: Hip Procedures Procedure Name Priority Date/Time Associated Diagnosis Comments COLONOSCOPY 05/23/2024 7:[address] ABDOMEN PELVIS WO CONTRAST ED 11/15/2022 4:35 PM CDT from Last 3 Months or Most Recently Relevant to Health Maintenance Results * Colonoscopy (05/23/2024 7:18 AM CARE CLINICIAN) Anatomical Region Laterality Modality Other Narrative Procedure Note Kristofer Gonzalez MD - 05/23/2024 7:18 AM CST [facility] Patient Name: Alex Hong Procedure Date: 05/23/2024 7:18 AM Date of : 1950 Admit Type: Outpatient Age: 74 Gender: Male Attending MD: Kristofer Gonzalez M.D. Room: [facility] ENDOSCOPY ROOM 1 Note Status: Finalized Patient [...] passed under direct vision. The Pediatric Colonoscope [id number] was introduced through the anus and advanced [...] 7:18 AM Procedure Code(s): --- Professional --- 15692, Colonoscopy, flexible; with biopsy, single or multiple Diagnosis Code(s): --- Professional --- Z80.0, Family history of malignant neoplasm of digestive organs Z86.010, Personal history of colonic polyps K64.8, Other hemorrhoids D12.5, Benign neoplasm of sigmoid colon D12.4, Benign neoplasm of descending colon D12.8, Benign neoplasm of rectum CPT copyright 2020 [employer]. All rights reserved. The codes documented in this report are preliminary and upon order puller reviewmay be revised to meet current compliance requirements. Recognized by the [employer] for promoting quality [...] Agustín Knox M.D. KT: SKY Report ID: [id number] Reading Location: [id number] Procedure Note Agustín Knox MD - 11/15/2022 [...] Agustín Knox M.D. KT: SKY Report ID: [id number] Reading Location: [place] [address] Zhane Perez MD IM CT PROCEDURES Final R esult from Last 3 Months or Most Recently Relevant to Health Maintenance Insurance [facility] MEDICARE ADVANTAGE [facility] Address: [address] [address] [place] [address] [facility] MEDICARE AETNA MEDICARE Advance Directives For more information, please contact: [phone] Documents on File Type Date Recorded Patient Control Systems Developer Expl anation ADVANCE DIRECTIVE 03/05/2021 11:17 AM Aysha r of Graphics Specialist-Medical * Full Code (Latest Code Status on [...] 7:12 AM 05/24/2020 1:01 PM Care Teams Teacher'S Assistant Relationship Specialty Start Date End Date Hilary Wynn MD [address] [place] [address] PCP - General 08/08/16 Martinez Adams MD [address] [place] [address] Consulting Physician Otolaryngology 09/01/21 Carlitos Madison MD PhD [address] [place] [address] Supervisor Electronics Processing Dermatology 04/13/22
--- OUTSIDE RECORDS SUMMARY | 2024-11-20 09:44 | XMS_ITS | Clinical Summary ---
Author Organization [facility] Address [address] [place] [address] Phone Care Team Providers Care Applications Programmer Analyst Name Role Phone Hilary Wynn MD Primary Care Provider [phone] Chadd Knight MD Unavailable Allergies Active Allergy [...] topic Insurance MEDICARE C AETNA Care Teams Applications Programmer Analyst Relationship Specialty Start Date End Date Hilary Wynn MD [address] [place] [address] PCP - General Internal Medicine 12/08/16 Chadd Knight MD [address] [address] Consulting Physician Urology 08/05/23
[2024-11-20 10:47] LABS: Anion Gap 2 mmol/L (4-12); Blood Urea Nitrogen 15 mg/dL (9-20); Calcium 8.8 mg/dL (8.4-10.2); Carbon Dioxide 30 mmol/L (22-30); Chloride 106 mmol/L (98-107); Estimated Glomerular Filt Rate > 60; Glucose 96 mg/dL (65-110); Osmolality Calculated 286 mOsm/kg (285-295); Potassium 4.1 mmol/L (3.4-5.0); Sodium 138 mmol/L (137-145)
[2024-11-20 11:16] LABS: Prostate Specific Antigen < 0.1 ng/mL (< OR = 4.0)
== END 2024-11-20 09:39 | disposition home or self-care (01) ==
PROVIDERS: PCP Internal Medicine; Visit Provider Urology
DX: C61 Malignant neoplasm of prostate (principal)
CPT/HCPCS: 36415; 80048; 84153

== ENCOUNTER 2024-12-18 10:44 | Outpatient (CLI) | payer MEDICARE, SELFPAY ==
[2024-12-18 11:28] LABS: Anion Gap 7 mmol/L (4-12); Blood Urea Nitrogen 15 mg/dL (9-20); Calcium 9.5 mg/dL (8.4-10.2); Carbon Dioxide 28 mmol/L (22-30); Chloride 106 mmol/L (98-107); Estimated Glomerular Filt Rate > 60; Glucose 146 mg/dL (65-110); Osmolality Calculated 295 mOsm/kg (285-295); Potassium 4.1 mmol/L (3.4-5.0); Sodium 141 mmol/L (137-145)
--- OUTSIDE RECORDS SUMMARY | 2024-12-18 11:35 | XMS_ITS | Encounter Summary ---
Author Organization [facility] Address [address] [facility] [address] [place] [address] Care Team Providers Care Nutrition Technician Name Role Phone Hilary Wynn MD Primary Care Provider + [phone] Martinez Adams MD Unavailable [phone] Carlitos Madison MD PhD Unavailable Encounter Details Date Type Department Care Team ([facility] Contact Info) Description 02/16/2013 Orders Only [facility] Health Information Management [address] [place] [address] Scanning, Provider Social History Tobacco Use Types Packs/Day Years Used Date Smoking Tobacco: Never Assessed Sex and Gender Information Value Date Recorded Sex Assigned at Not on file 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
--- OUTSIDE RECORDS SUMMARY | 2024-12-18 11:35 | XMS_ITS | Encounter Summary ---
Author Organization [facility] Address [address] [facility] [address] [place] [address] Care Team Providers Care Combination Man Name Role Phone Hilary Wynn MD Primary Care Provider + [phone] Martinez Adams MD Unavailable [phone] Carlitos Madison MD PhD Unavailable Encounter Details Date Type Department Care Team (Late st Contact Info) Description 01/05/2013 Orders Only [facility] Health Information Management [address] [place] [address] Scanning, Provider Social History Tobacco Use Types Packs/Day Years Used Date Smoking Tobacco: Never Assessed Sex and Gender Information Value Date Recorded Sex Assigned at Not on file 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
--- OUTSIDE RECORDS SUMMARY | 2024-12-18 11:35 | XMS_ITS | Encounter Summary ---
Author Organization [facility] Address [address] [facility] [address] [place] [address] Care Team Providers Care Assistant Controller Name Role Phone Hilary Wynn MD Primary Care Provider + [phone] Martinez Adams MD Unavailable [phone] Carlitos Madison MD PhD Unavailable Encounter Details Date Type Department Care Team ([facility] Contact Info) Description 11/18/2011 Orders Only [facility] Health Information Management [address] [place] [address] Scanning, Provider Social History Tobacco Use Types Packs/Day Years Used Date Smoking Tobacco: Never Assessed Sex and Gender Information Value Date Recorded Sex Assigned at Not on file 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
--- OUTSIDE RECORDS SUMMARY | 2024-12-18 11:35 | XMS_ITS | Encounter Summary ---
Author Organization [facility] Address [address] [facility] [address] [place] [address] Care Team Providers Care Strip Stamp Straightener Name Role Phone Hilary Wynn MD Primary Care Provider + [phone] Martinez Adams MD Unavailable [phone] Carlitos Madison MD PhD Unavailable Encounter Details Date Type Department Care Team ([facility] Contact Info) Description 02/15/2013 Orders Only [facility] Health Information Management [address] [place] [address] Scanning, Provider Social History Tobacco Use Types Packs/Day Years Used Date Smoking Tobacco: Never Assessed Sex and Gender Information Value Date Recorded Sex Assigned at Not on file 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
--- OUTSIDE RECORDS SUMMARY | 2024-12-18 11:35 | XMS_ITS | Encounter Summary ---
Author Organization [facility] Address [address] [place] [address] Phone Care Team Providers Care Net Applications Developer Name Role Phone Hilary Wynn MD Primary Care Provider [phone] Martinez Adams MD Unavailable [phone] Carlitos Madison MD PhD Unavailable Encounter Details Date Type Department Care Team (Late st Contact Info) Description 10/17/2020 Telephone [facility] [address] [facility] 5[address] [place] [address] [place] [address] Abril Chavarria Social History Tobacco [...] on file Legal 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
--- OUTSIDE RECORDS SUMMARY | 2024-12-18 11:36 | XMS_ITS | Clinical Summary ---
Author Organization [facility] Address [address] [place] [address] Care Team Providers Care Container Maker Name Role Phone Hilary Wynn MD Primary Care Provider [phone] Martinez Adams MD Unavailable [phone] Carlitos Madison MD PhD Unavailable Allergies Active [...] (07/09/2021): Added automatically from request for surgery [id number] Sebaceous cyst 02/28/2021 Overview (02/28/2021): Added automatically from request for surgery [id number] Malignant melanoma of left u pper extremity including shoulder 09/19/2020 Overview (09/19/2020): Added automatically from request for surgery [id number] 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 09/16/2020 Overview (09/16/2020): Added automatically from request for surgery [id number] Iron deficiency anemia 03/20/2020 Assessment & Plan (03/20/2020 4:43 PM RN ENDOCRINOLOGY): Patient has high as iron deficiency anemia which seems to be corrected with oral iron. He has history of GI bleeding. No sign of bleeding at this time. Schedule colonoscopy for evaluation. No need for further evaluation the stone. 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 Endoscopic removal was very difficult and he was treated at [facility] with couple endoscopy procedures. No need for endoscopy at this time as long as there is no sign of melena. Resolved Problems Problem Noted Date Diagnosed Date Resolved Date Encounter for screening colonoscopy 03/07/2020 04/11/2021 Overview (03/07/2020): Added automatically from request for surgery [id number] Encounters Date Type Department Care Team Description 11/24/2024 11:33 AM CDT - 11/24/2024 11:59 PM CDT Hospital Encounter [facility] [address] [place] [address] Other microscopic hematuria Discharge Disposition: Discharge to home or self care 11/23/[address] [address] Janessa Triana from Last 3 Months Surgical History Surgery [...] Kidney stone Hypertension Type 2 diabetes mellitus Cancer (HCC) Prostate cancer GERD (gastroesophageal reflux disease) Melanoma (HCC) 2020 History of radiation therapy pro state Cataract COPD (chronic obstructive pu lmonary disease) copd no inhalers Low iron 2016 on [...] on file Legal Sex Male 10:46 AM RN ENDOCRINOLOGY Gender Identity Not on file Sexual Orientation Not on file Obstetrics History Last Filed Vital Signs Vital Sign Reading Time Taken Comments Blood Pressure 134/68 05/23/2024 9:02 AM RN ENDOCRINOLOGY Pulse 73 05/23/2024 9:02 AM RN ENDOCRINOLOGY Temperature 36.9 C (98.5 F) 05/23/2024 9:02 AM RN ENDOCRINOLOGY Respiratory Rate 18 05/23/2024 9:02 AM RN ENDOCRINOLOGY Oxygen Saturation 96% 05/23/2024 9:02 AM RN ENDOCRINOLOGY Inhaled Oxygen Concentration - - Weight 99.8 kg (220 lb) 05/23/2024 7:16 AM RN ENDOCRINOLOGY Height 177.8 cm (5' 10) 05/23/2024 7:16 AM RN ENDOCRINOLOGY Body Mass Index 31.57 05/23/2024 7:16 AM RN ENDOCRINOLOGY Plan of Treatment Health Maintenance Due Date [...] history exists Medical Devices Implanted Type Area Data Input Clerk Device Identifier Shelf Expiration Date Model / Serial / Lot Hip Replacement Right: Hip Procedures Procedure Name Priority Date/Time Associated Diagnosis Comments CT UROGRAM Schedule Routine, Read Routine (OP Routine) 11/24/2024 1:21 PM CDT Other microscopic hematuria COLONOSCOPY 05/23/2024 7:[address] ABDOMEN PELVIS WO CONTRAST ED 11/15/2022 4:35 PM CDT from Last 3 Months or Most Recently Relevant to Health Maintenance Results * CT Urogram W Contrast No 3D (11/24/2024 1:21 PM CDT) Anatomical Region Laterality Modality Body N/A Computed Tomogra phy 12/15/2024 8:42 AM CDT Narrative 12/15/2024 8:59 AM CDT EXAM DESCRIPTION: CT UROGRAM W CONTRAST NO 3D REASON FOR STUDY: R31.29 Hematuria found in routine blood work, history of stones, history of prostate cancer with surgery, history of hip surgery TECHNIQUE: Precontrast images of the abdomen. Abdomen and pelvis images with intravenous and without oral contrast using helical scanning technique with dynamic intravenous contrast injection. Corticomedullary, nephrographic, excretory phase images were acquired. Reconstructed coronal and sagittal MPR images reviewed. All images stored on PACS. Automated exposure control was used as a dose optimization technique for this examination. CONTRAST TYPE/DOSE: 75mL of IOVERSOL 350 MG IODINE/ML INTRAVENOUS SYRINGE injected via intravenous COMPARISON: 11/15/2022. FINDINGS: LOWER CHEST: Minimal hazy opacity in the right base. Air trapping is noted. There is no pleural effusion. LIVER: Liver size and contour normal. No focal hepatic lesion. The portal and hepatic veins are patent. GALLBLADDER: Surgically absent. BILE DUCTS: No biliary ductal dilation. SPLEEN: Spleen size normal. No focal splenic lesion. PANCREAS: No pancreatic mass or inflammatory change. ADRENALS: Bilateral adrenal glands, on the right 3.0 x 1.8 cm -5 Hounsfield units and on the left lateral limb 3.1 x 2.1 cm 2 Hounsfield units and from the medial limb 2.3 x 1.8 cm -4 Hounsfield units, evidence of benign adrenal adenomas. KIDNEYS/URETERS/URINARY BLADDER: In the upper pole right kidney there is a rounded macroscopic fat attenuation 1.1 cm lesion -89 Hounsfield units evidence of an angiomyolipoma. Calculus mid right kidney 0.1 cm. Multiple left renal calculi midpole 0.2 cm, and in the lower pole 0.3 and 0.3 cm. Subcentimeter hypodensities in the left kidney measure up to 0.5 cm most likely cysts. There is a cyst in the mid right kidney 2.4 x 1.4 cm (series 5, image 61). There is excretion of contrast from the kidneys bilaterally. Short segment of nonopacification distal right ureter. The left ureter normally opacified with no filling defect, urothelial thickening or mass. Small amount of contrast in the urinary bladder. GI: No evidence of bowel obstruction. The appendix is normal. Stomach and duodenal normal. No abnormal bowel wall thickening. No pneumatosis. PERITONEUM: No ascites or free air. No mesenteric mass or lymphadenopathy. RETROPERITONEUM: No retroperitoneal mass or lymphadenopathy. REPRODUCTIVE: The prostate is surgically absent. There is the partially imaged penile prosthesis. Surgical clips along the iliac chains. VASCULATURE: Abdominal aorta is nonaneurysmal. MUSCULOSKELETAL: Bone windows demonstrate postsurgical changes with a right hip arthroplasty and transpedicular screws and rods at L5-S1. Advanced degenerative change throughout the lumbar spine. Evidence of laminectomy at L3, L4 and L5. there is a dextrocurvature of the lumbar spine. OTHER: No other abnormality. IMPRESSION: 1. No evidence of an acute abnormality of the abdomen and pelvis. 2. Small segment incomplete opacification distal right ureter, otherwise normal CT urogram. 3. Bilateral nonobstructing renal calculi. 4. 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 5. Bilateral benign adrenal adenomas. 6. Cholecystectomy and prostatectomy. THIS IS AN ELECTRONICALLY VERIFIED FINAL REPORT 12/15/2024 8:59 AM - Electronically signed by Ant Camara M.D. CH: Report ID: [id number] Reading Location: [id number] Procedure Note Ant Camara Jr., MD - 12/15/2024 EXAM DESCRIPTION: CT UROGRAM W CONTRAST NO 3D REASON FOR STUDY: R31.29 Hematuria found in routine blood work, history of stones, history ofprostate cancer with surgery, history of hip surgery TECHNIQUE: Precontrast images of the abdomen. Abdomen and pelvis imageswith intravenous and without oral contrast using helical scanning techniquewith dynamic intravenous contrast injection. Corticomedullary, nephrographic, excretory phase images were acquired. Reconstructed coronal and sagittalMPR images reviewed. All images stored on PACS. Automated exposure control was used as a dose optimization technique forthis examination. CONTRAST TYPE/DOSE: 75mL of IOVERSOL 350 MG IODINE/ML INTRAVENOUSSYRINGE injected via intravenous COMPARISON: 11/15/2022. FINDINGS: LOWER CHEST: Minimal hazy opacity in the right base. Air trapping isnoted. There is no pleural effusion. LIVER: Liver size and contour normal. No focal hepatic lesion. Theportal and hepatic veins are patent. GALLBLADDER: Surgically absent. BILE DUCTS: No biliary ductal dilation. SPLEEN: Spleen size normal. No focal splenic lesion. PANCREAS: No pancreatic mass or inflammatory change. ADRENALS: Bilateral adrenal glands, on the right 3.0 x 1.8 cm -5Hounsfield units and on the left lateral limb 3.1 x 2.1 cm 2 Hounsfield units andfrom the medial limb 2.3 x 1.8 cm -4 Hounsfield units, evidence of benignadrenal adenomas. KIDNEYS/URETERS/URINARY BLADDER: In the upper pole right kidney there naveed rounded macroscopic fat attenuation 1.1 cm lesion -89 Hounsfield units evidence of an angiomyolipoma. Calculus mid right kidney 0.1 cm.Multiple left renal calculi midpole 0.2 cm, and in the lower pole 0.3 and 0.3 cm. Subcentimeter hypodensities in the left kidney measure up to 0.5 cm most likely cysts. There is a cyst in the mid right kidney 2.4 x 1.4 cm(series 5, image 61). There is excretion of contrast from the kidneys bilaterally. Short segment of nonopacification distal right ureter. The left ureter normally opacified with no filling defect, urothelial thickening or mass. Small amount of contrast in the urinary bladder. GI: No evidence of bowel obstruction. The appendix is normal. Stomachand duodenal normal. No abnormal bowel wall thickening. No pneumatosis. PERITONEUM: No ascites or free air. No mesenteric mass orlymphadenopathy. RETROPERITONEUM: No retroperitoneal mass or lymphadenopathy. REPRODUCTIVE: The prostate is surgically absent. There is the partially imaged penile prosthesis. Surgical clips along the iliac chains. VASCULATURE: Abdominal aorta is nonaneurysmal. MUSCULOSKELETAL: Bone windows demonstrate postsurgical changes with aright hip arthroplasty and transpedicular screws and rods at L5-S1. Advanced degenerative change throughout the lumbar spine. Evidence of laminectomyat L3, L4 and L5. there is a dextrocurvature of the lumbar spine. OTHER: No other abnormality. IMPRESSION: 1. No evidence of an acute abnormality of the abdomen and pelvis. 2. Small segment incomplete opacification distal right ureter, otherwise normal CT urogram. 3. Bilateral nonobstructing renal calculi. 4. 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 5. Bilateral benign adrenal adenomas. 6. Cholecystectomy and prostatectomy. THIS IS AN ELECTRONICALLY VERIFIED FINAL REPORT 12/15/2024 8:59 AM - Electronically signed by Ant Camara M.D. CH: Report ID: [id number] Reading Location: [id number] Chadd Knight MD IMG CT PROCEDURES Final Result * Colonoscopy (05/23/2024 7:18 AM RN ENDOCRINOLOGY) Anatomical Region Laterality Modality Other Narrative Procedure Note Kristofer Gonzalez MD - 05/23/2024 7:18 AM CST [facility] Patient Name: Alex Hong Procedure Date: 05/23/2024 7:18 AM Date of : 1950 Admit Type: Outpatient Age: 74 Gender: Male Attending MD: Kristofer Gonzalez M.D. Room: [facility] ENDOSCOPY ROOM 1 Note Status: Finalized [...] passed under direct vision. The Pediatric Colonoscope [id number] was introduced through the anus and advanced [...] 7:18 AM Procedure Code(s): --- Professional --- 16742, Colonoscopy, flexible; with biopsy, single or multiple Diagnosis Code(s): --- Professional --- Z80.0, Family history of malignant neoplasm of digestive organs Z86.010, Personal history of colonic polyps K64.8, Other hemorrhoids D12.5, Benign neoplasm of sigmoid colon D12.4, Benign neoplasm of descending colon D12.8, Benign neoplasm of rectum CPT copyright 2020 [employer] [place] [employer]. All rights reserved. The codes documented in this report are preliminary and upon manager commercial sales reviewmay be revised to meet current compliance requirements. Recognized by the [place] [employer] for promoting quality [...] Agustín Knox M.D. KT: SKY Report ID: [id number] Reading Location: [id number] Procedure Note Agustín Knox MD - 11/15/2022 [...] Agustín Knox M.D. KT: SKY Report ID: [id number] Reading Location: [place] [address] Zhane Perez MD IMG CT PROCEDURES Final R esult from Last 3 Months or Most Recently Relevant to Health Maintenance Insurance [facility] MEDICARE ADVANTAGE AETNA MEDICARE [facility] MEDICARE Advance Directives For more information, please contact: [phone] Documents on File Type Date Recorded Patient Airport Screener Expl anation ADVANCE DIRECTIVE 03/05/2021 11:17 AM Aysha r of Hand Braille Transcriber-Medical * Full Code (Latest Code Status on [...] 7:12 AM 05/24/2020 1:01 PM Care Teams Container Maker Relationship Specialty Start Date End Date Hilary Wynn MD [address] [place] [address] PCP - General 08/08/16 Martinez Adams MD [address] [place] [address] Consulting Physician Otolaryngology 09/01/21 Carlitos Madison MD PhD [address] [place] [address] Power Equipment Mechanics Instructor Dermatology 04/13/22
--- OUTSIDE RECORDS SUMMARY | 2024-12-18 11:36 | XMS_ITS | Clinical Summary ---
Author Organization [facility] Address [address] [place] [address] Phone Care Team Providers Care Police Dispatcher Name Role Phone Hilary Wynn MD Primary Care Provider [phone] Chadd Knight MD Unavailable Allergies Active Allergy [...] topic Insurance MEDICARE C AETNA Care Teams Police Dispatcher Relationship Specialty Start Date End Date Hilary Wynn MD [address] [place] [address] PCP - General Internal Medicine 12/08/16 Chadd Knight MD [address] [address] Consulting Physician Urology 08/05/23
== END 2024-12-18 10:45 | disposition home or self-care (01) ==
LOC: CHSLAB 10:46
PROVIDERS: PCP Internal Medicine; Visit Provider Internal Medicine
DX: Z51.81 Encounter for therapeutic drug level monitoring (principal)
CPT/HCPCS: 36415; 80048

== ENCOUNTER 2025-02-19 07:30 | Outpatient (CLI) | payer MEDICARE, SELFPAY ==
[2025-02-19 07:44] LABS: Add Urine Microscopic? YES; Appearance Urine Clear (Clear); Glucose Urine UA Negative (Negative); Leukocyte Esterase Ur Trace (Negative); Nitrate Urine Positive (Negative); Specific Grav Ur 1.025 (1.010-1.020)
--- OUTSIDE RECORDS SUMMARY | 2025-02-19 07:45 | XMS_ITS | Clinical Summary ---
Author Organization [facility] Address [address] [place] [address] Phone Care Team Providers Care Director Corporate Sales Name Role Phone Hilary Wynn MD Primary Care Provider [phone] Chadd Knight MD Unavailable Allergies Active Allergy [...] Cologuard 01/02/1996 Immunochemical Fecal Occult Blood 01/02/1996 Medicare Initial AWV [id number] 12/01/2016 Influenza Immunization (#1) 01/01/202501/31, 02/17/2022, 02/19/2021, Additional history exists SARS-COV-2 Immunization ( season) 2025 01/27/2022, 01/28/2021, 06/25/2020, Additional history exists Respiratory [...] topic Insurance MEDICARE C AETNA Care Teams Director Corporate Sales Relationship Specialty Start Date End Date Hilary Wynn MD [address] [place], [place] [id number] PCP - General Internal Medicine 12/08/16 Chadd Knight MD [address] [address] Consulting Physician Urology 08/05/23
--- OUTSIDE RECORDS SUMMARY | 2025-02-19 07:45 | XMS_ITS | Clinical Summary ---
Author Organization [facility] Address [address] [place] [address] Care Team Providers Care Health Services Information Specialist Name Role Phone Hilary Wynn MD Primary Care Provider [phone] Allergies No known active allergies Medications potassium [...] Vaccine: 50+ Years (2 of 2 - PPSV23, PCV20, or PCV21) 03/30/2019 02/02/2019 COVID-19 Vaccine ( - 2023-2 5 season) 2025 Influenza Adult (#1) 2025 RSV Immunization or 60+ Years (1 - 1-dose 75+ series) 2026 Zoster Vaccines Completed 10/06/2019, 06/02/2019, 02/21/2013 Hepatitis A Vaccines Aged Out No long er eligible based on patient's age to complete this topic Meningococcal B Vaccine Aged Out No l onger eligible based on patient's age to complete this topic Meningococcal Vaccine Aged Out No viktoria brooks eligible based on patient's age to complete this topic RSV Immunizations Under 20 Months Aged Out No longer eligible b ased on patient's age to complete this topic Medical Devices Implanted Type Area Hydrometeorological Technician Device Identifier Shelf Expiration Date Model / Serial / Lot Iol Kyle [id number] - [id number] Implanted:Qty: 1 on 01/02/2020 by Krishna Elizalde MD at [facility] Lens Left: Eye [employer] - SURGICAL DIV 06/12/2024 [id number] / [id number] / N/A Description:Implant verified by MD Insurance MED [facility] MEDICARE Care Teams Health Services Information Specialist Relationship Specialty Start Date End Date Hilary Wynn MD [address] [place] [address] PCP - General INTERNAL MEDICINE 12/29/19
[2025-02-19 07:46] LABS: Hematocrit 50.9 % (37.0-46.0); Hemoglobin 16.2 g/dL (12.4-15.3); Mean Corpuscular HGB Conc 31.8 g/dL (32-36); Mean Corpuscular Hemoglobin 31.9 pg (27.0-31.0); Mean Corpuscular Volume 100.2 fL (78.0-102.0); Platelet Count Result 240 K/mm3 (150-420); Red Blood Count 5.08 M/mm3 (4.70-6.10); White Blood Count 6.1 K/mm3 (4.8-10.8)
[2025-02-19 08:46] LABS: Alanine Aminotransferase 31 U/L (6-50); Albumin Level 4.3 g/dL (3.5-5.1); Alkaline Phosphatase 77 U/L (38-126); Anion Gap 6 mmol/L (4-12); Aspartate Amino Transferase 23 U/L (17-59); Bilirubin,Total 0.4 mg/dL (0.2-1.3); Blood Urea Nitrogen 18 mg/dL (9-20); Calcium 9.8 mg/dL (8.4-10.2); Carbon Dioxide 32 mmol/L (22-30); Chloride 105 mmol/L (98-107); Cholesterol 153 mg/dL (0-200); Creatine Kinase 61 U/L (55-170); Estimated Glomerular Filt Rate > 60; Glucose 126 mg/dL (65-110); HDL Direct 44 mg/dL; Osmolality Calculated 299 mOsm/kg (285-295); Potassium 4.4 mmol/L (3.4-5.0); Sodium 143 mmol/L (137-145); Total Protein 7.2 g/dL (6.3-8.2); Triglycerides 232 mg/dL (<150)
[2025-02-19 08:52] LABS: Hemoglobin A1C 6.1 % (<5.7)
[2025-02-19 09:03] LABS: Free T4 Free Thyroxine 0.96 ng/dL (0.78-2.19)
[2025-02-19 09:17] LABS: Thyroid Stimulating Hormone 2.890 uIU/mL (0.465-4.680)
== END 2025-02-19 07:31 | disposition home or self-care (01) ==
PROVIDERS: PCP Internal Medicine; Visit Provider Internal Medicine
DX: E78.2 Mixed hyperlipidemia (principal); I10 Essential (primary) hypertension; E11.9 Type 2 diabetes mellitus without complications; N20.0 Calculus of kidney; R82.81 Pyuria
CPT/HCPCS: 36415; 80053; 80061; 81001; 82550; 83036; 84439; 84443; 85027; 87086; 87186

== ENCOUNTER 2025-03-08 09:36 | Outpatient (CLI) | payer MEDICARE, SELFPAY ==
[2025-03-08 09:59] LABS: Add Urine Microscopic? YES; Appearance Urine Clear (Clear); Glucose Urine UA Negative (Negative); Leukocyte Esterase Ur Negative LEU/UL (Negative); Nitrate Urine Negative (Negative); Specific Grav Ur 1.020 (1.010-1.020)
--- OUTSIDE RECORDS SUMMARY | 2025-03-08 18:05 | XMS_ITS | Encounter Summary ---
Author Organization [facility] Address [address] [address] [place] [address] Care Team Providers Care Twitchell Operator Name Role Phone Hilary Wynn MD Primary Care Provider [phone] Martinez Adams MD Unavailable [phone] Carlitos Madison MD PhD Unavailable Encounter Details Date Type Department Care Team ([facility] Contact Info) Description 02/15/2013 Orders Only [facility] Health Information Management [address] [place] [address] Scanning, Provider Social History Tobacco Use Types Packs/Day Years Used Date Smoking Tobacco: Never Assessed Sex and Gender Information Value Date Recorded Sex Assigned at Not on file 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
--- OUTSIDE RECORDS SUMMARY | 2025-03-08 18:05 | XMS_ITS | Encounter Summary ---
Author Organization [facility] Address [address] [facility] [address] [place] [address] Care Team Providers Care Fruit Bar Maker Name Role Phone Hilary Wynn MD Primary Care Provider [phone] Martinez Adams MD Unavailable [phone] Carlitos Madison MD PhD Unavailable Encounter Details Date Type Department Care Team (Late st Contact Info) Description 01/05/2013 Orders Only [facility] Health Information Management [address] [place] [address] Scanning, Provider Social History Tobacco Use Types Packs/Day Years Used Date Smoking Tobacco: Never Assessed Sex and Gender Information Value Date Recorded Sex Assigned at Not on file 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
--- OUTSIDE RECORDS SUMMARY | 2025-03-08 18:05 | XMS_ITS | Encounter Summary ---
Author Organization [facility] Address [address] [place] [address] Phone Care Team Providers Care Jewelry Jobber Name Role Phone Hilary Wynn MD Primary Care Provider [phone] Martinez Adams MD Unavailable [phone] Carlitos Madison MD PhD Unavailable Encounter Details Date Type Department Care Team (Late st Contact Info) Description 10/17/2020 Telephone [facility] [address] 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
--- OUTSIDE RECORDS SUMMARY | 2025-03-08 18:05 | XMS_ITS | Clinical Summary ---
Author Organization [facility] Address [address] [place] [address] Phone Care Team Providers Care Bacon De Rinder Name Role Phone Hilary Wynn MD Primary Care Provider [phone] Chadd Knight MD Unavailable Allergies Active Allergy [...] topic Insurance MEDICARE C AETNA Care Teams Bacon De Rinder Relationship Specialty Start Date End Date Hilary Wynn MD [address] [place], [place] [phone] PCP - General Internal Medicine 12/08/16 Chadd Knight MD [address] [address] Consulting Physician Urology 08/05/23
--- OUTSIDE RECORDS SUMMARY | 2025-03-08 18:05 | XMS_ITS | Clinical Summary ---
Author Organization [facility] Address [address] [place] [address] Care Team Providers Care Land Classifier Name Role Phone Hilary Wynn MD Primary Care Provider [phone] Martinez Adams MD Unavailable [phone] Carlitos Madison MD PhD Unavailable Allergies Active [...] (07/09/2021): Added automatically from request for surgery [id number] Sebaceous cyst 02/28/2021 Overview (02/28/2021): Added automatically from request for surgery [id number] Malignant melanoma of left u pper extremity including shoulder 09/19/2020 Overview (09/19/2020): Added automatically from request for surgery [id number] 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 He has history of GI bleeding. No sign of bleeding at this time. Schedule colonoscopy for evaluation. No need for further evaluation the stone. 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 Endoscopic removal was very difficult and he was treated at [facility] with couple endoscopy procedures. No need for endoscopy at this time as long as there is no sign of melena. Resolved Problems Problem Noted Date Diagnosed Date Resolved Date Encounter for screening colonoscopy 03/07/2020 04/11/2021 Overview (03/07/2020): Added automatically from request for surgery [id number] Encounters Date Type Department Care Team Description 02/02/2025 9:15 AM CDT Office Visit [facility] Medicine Dermatology [address] [place] [address] [place] [id number] Carlitos Madison MD PhD Lentigines (Primary Dx); History of nonmelanoma skin cancer; History of malignant melanoma; Seborrheic keratoses; Multiple benign nevi; Actinic keratosis from Last 3 Months Surgical History Surgery [...] lmonary disease) copd no inhalers Low iron 2015 on [...] on file 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 Gender Identity Not on file Sexual Orientation Not on file Last Filed Vital Signs Vital Sign Reading Time Taken Comments Blood Pressure 134/68 05/23/2024 9:02 AM MILKING WORKER Pulse 73 05/23/2024 9:02 AM MILKING WORKER Temperature 36.9 C (98.5 F) 05/23/2024 9:02 AM MILKING WORKER Respiratory Rate 18 05/23/2024 9:02 AM MILKING WORKER Oxygen Saturation 96% 05/23/2024 9:02 AM MILKING WORKER Inhaled Oxygen Concentration - - Weight 99.8 kg (220 lb) 05/23/2024 7:16 AM MILKING WORKER Height 177.8 cm (5' 10) 05/23/2024 7:16 AM MILKING WORKER Body Mass Index 31.57 05/23/2024 7:16 AM MILKING WORKER Plan of Treatment Health Maintenance Due Date Last Done Comments Depression Screening 1950 Hepatitis C Screening 1950 Hepatitis B Screening 1969 Well Visit 65+ 01/02/2016 Covid-19 Vaccine (4 - 2024-2 6 season) 2025 01/28/2021, 06/25/2020, 06/04/2020 Influenza Vaccine (#1) 2025 [...] history exists Medical Devices Implanted Type Area Dry Pan Charger Device Identifier Shelf Expiration Date Model / Serial / Lot Hip Replacement Right: Hip Procedures Procedure Name Priority Date/Time Associated Diagnosis Comments COLONOSCOPY 05/23/2024 7:[address] ABDOMEN PELVIS WO CONTRAST ED 11/15/2022 4:35 PM CDT from Last 3 Months or Most Recently Relevant to Health Maintenance Results * Colonoscopy (05/23/2024 7:18 AM MILKING WORKER) Anatomical Region Laterality Modality Other Narrative Procedure Note Kristofer Gonzalez MD - 05/23/2024 7:18 AM CST [facility] Patient Name: Alex Hong Procedure Date: 05/23/2024 7:18 AM Date of : 1950 Admit Type: Outpatient Age: 74 Gender: Male Attending MD: Kristofer Gonzalez M.D. Room: [facility] ENDOSCOPY ROOM 1 Note Status: Finalized Patient [...] passed under direct vision. The Pediatric Colonoscope [id number] was introduced through the anus and advanced [...] 7:18 AM Procedure Code(s): --- Professional --- 16117, Colonoscopy, flexible; with biopsy, single or multiple [...] in this report are preliminary and upon project engineer reviewmay be revised to meet current [...] Agustín Knox M.D. KT: KT Report ID: [id number] Reading Location: [place] [address] Procedure Note Agustín Knox MD - 11/15/2022 [...] Agustín Knox M.D. KT: SKY Report ID: [id number] Reading Location: [place] [address] Zhane Perez MD IMG CT PROCEDURES Final R esult from Last 3 Months or Most Recently Relevant to Health Maintenance Insurance UHC MEDICARE ADVANTAGE [facility] MEDICARE [facility] Address: [facility] [id number] [place] [address] [facility] MEDICARE Advance Directives For more information, please contact: [phone] Documents on File Type Date Recorded Patient Software Test Technician Expl anation ADVANCE DIRECTIVE 03/05/2021 11:17 AM Aysha r of Claim Attorney-Medical * Full Code (Latest Code Status on [...] 7:12 AM 05/24/2020 1:01 PM Care Teams Land Classifier Relationship Specialty Start Date End Date Hilary Wynn MD [address] [place] [address] PCP - General 08/08/16 Martinez Adams MD [address] [place] [address] Consulting Physician Otolaryngology 09/01/21 Carlitos Madison MD PhD [address] [place] [address] Supply Clerk Dermatology 04/13/22
--- OUTSIDE RECORDS SUMMARY | 2025-03-08 18:05 | XMS_ITS | Encounter Summary ---
Author Organization [facility] Medical [facility] Address [address] [facility] [address] [place] [address] Care Team Providers Care Pig Machine Supervisor Name Role Phone Hilary Wynn MD Primary Care Provider + [phone] Martinez Adams MD Unavailable [phone] Carlitos Madison MD PhD Unavailable Encounter Details Date Type Department Care Team ([facility] Contact Info) Description 11/18/2011 Orders Only [facility] Information Management [address] [place] [address] Scanning, Provider Social History Tobacco Use Types Packs/Day Years Used Date Smoking Tobacco: Never Assessed Sex and Gender Information Value Date Recorded Sex Assigned at Not on file 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
--- OUTSIDE RECORDS SUMMARY | 2025-03-08 18:05 | XMS_ITS | Encounter Summary ---
Author Organization [facility] Medical [facility] Address [address] [facility] [address] [place] [address] Care Team Providers Care Shaper Hand Name Role Phone Hilary Wynn MD Primary Care Provider + [phone] Martinez Adams MD Unavailable [phone] Carlitos Madison MD PhD Unavailable Encounter Details Date Type Department Care Team ([facility] Contact Info) Description 02/16/2013 Orders Only [facility] Health Information Management [address] [place] [address] Scanning, Provider Social History Tobacco Use Types Packs/Day Years Used Date Smoking Tobacco: Never Assessed Sex and Gender Information Value Date Recorded Sex Assigned at Not on file 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
--- OUTSIDE RECORDS SUMMARY | 2025-03-08 18:05 | XMS_ITS | Clinical Summary ---
Author Organization [facility] Address [address] [place] [address] Care Team Providers Care High School Art Teacher Name Role Phone Hilary Wynn MD Primary Care Provider [phone] Allergies No known active allergies Medications potassium [...] PCV21) 03/30/2019 02/02/2019 COVID-19 Vaccine ( - 2024-2 6 season) 2025 Influenza Adult (#1) 2025 RSV [...] this topic Medical Devices Implanted Type Area Stave Saw Operator Device Identifier Shelf Expiration Date Model / Serial / Lot Iol Kyle [id number] - [id number] Implanted:Qty: 1 on 01/02/2020 by Krishna Elizalde MD at [facility] Lens Left: Eye KYLE - SURGICAL DIV 06/12/2024 [id number] / [id number] / N/A Description:Implant verified by MD Insurance MED [facility] MEDICARE Care Teams High School Art Teacher Relationship Specialty Start Date End Date Hilary Wynn MD [address] [place] [address] PCP - General INTERNAL MEDICINE 12/29/19
== END 2025-03-08 09:37 | disposition home or self-care (01) ==
LOC: CHSLAB 09:39
PROVIDERS: PCP Internal Medicine; Visit Provider Internal Medicine
DX: N39.0 Urinary tract infection, site not specified (principal)
CPT/HCPCS: 81001